=== PATIENT | female | born 1935 | race Caucasian/White ===

== ENCOUNTER 2021-08-07 11:15 | Outpatient (RCR) | payer OTHER, SELFPAY ==
--- NOTE | 2021-05-02 11:49 | PT.OIE ---
Current Diagnoses Unspecified abnormalities of gait and mobility (05/02/21) History of falling (05/02/21) Visit Care Team Role Provider Type Tamia Vázquez MD Attending Provider Non-Staff Family Provider Primary Care Provider Referring Provider Specialty: Internal Medicine Address: [place], [address] Fax: Email: Physical Therapy Initial Evaluation PT-OP-A Visit Information Start: 05/02/21 11:17 Freq: Status: Active Protocol: Document 05/02/21 09:45 DCW (Rec: 05/02/21 11:34 DCW [id number]) Out-Patient Physical Therapy Visit Information Visit Information Visit Type Initial Evaluation Visit Start Time 09:45 Visit Stop Time 10:30 Total Visit Minutes 45 Visit Number 1 Number of LOCKSTITCH SHOULDER JOINER Visits 0 Evaluation Information Evaluation Date 05/02/21 PT-OP-B Current Condition Start: 05/02/21 11:17 Freq: Status: Active Protocol: Document 05/02/21 09:45 DCW (Rec: 05/02/21 11:34 DCW [id number]) Current Condition History of Current Condition Onset Date ~One year Current Complaints Worsening balance/stability History of Current Condition Pt is an 85 year old female presenting to skilled therapy with complaint of worsening balance and stability. Pt reports a fall 2-3 weeks ago where she was in her bedroom, turned quickly, lost her balance, lunged for the bed, missed, and ended up on the floor. Pt reports her left leg was quite bruised. Pt was also shocked that she was unable to get herself up, and needed her daughter to bring over a hard dining room chair for support. Pt reports she usually lives in an independent halfway community in [place], and does a lot of walking around the very large building, up to two miles a day. Unfortunately, for the last 16 months, she has been living here in [place] with her daughter, who was diagnosed with cancer and has been undergoing intensive chemo. Because of this, pt has been much less active than usual. Notes she uses a 4WW when out in the community, but just uses a wayne when at home. Pt does note that she has had spinal problems all her life, starting when she was about 32 . Has a history of 2 compression fractures, treated with vertoplasty, which are now 100% better. Notes she also has a history on Meniere' s disease, however has not had an episode in 20+ years. Treatment Goals Patient/Caregiver Goals Improve balance, decrease fear of falling PT-OP-C Subjective Start: 05/02/21 11:17 Freq: Status: Active Protocol: Document 05/02/21 09:45 DCW (Rec: 05/02/21 11:34 DCW [id number]) OP-PT Subjective Patient Comments Patient Comments What's happening, really, is that I'm 85 now. And there's just a lot that comes with that. Patient Reported Progress Worse Patient Questionnaires ABC- Activity Specific Balance Confidence Scale ABC Score 54.69% ABC Functional Impairment 40 to <60% Impaired (Score 41- 60) OP-PT Pain Assessment Pain Assessment Grid Paper Pain Assessment Grid Completed Yes: See chart PT-OP-D Balance Start: 05/02/21 11:17 Freq: Status: Active Protocol: Document 05/02/21 09:45 DCW (Rec: 05/02/21 11:34 DCW [id number]) OP-PT Balance Assessment Sitting Balance Static Sitting Balance Ability Normal Standing Balance Static Standing Balance Ability Good Dynamic Standing Balance Ability Fair Device Used None Balance Tests De La Fuente Balance Test De La Fuente Balance Test Score 47/56 De La Fuente Impairment Rating 1 to 19% Impaired (Score 45-55 ) De La Fuente Balance Assessment Evaluation Sitting to Standing Ability Independent w/out Hands Unsupported Stance Safely- 2 minutes Sitting Unsupported, Feet on Floor Safely- 2 minutes Standing to Sitting Ability Safely, Minimal Hand Use Transfer Ability Safely, Minimal Hand Use Unsupported Stance- Eyes Closed Supervision, 10 seconds Unsupported Stance- Eyes Open Independent, 1 minute Reaching Forward Standing Safely, 5 inches Pick- Up Object From Floor Supervision Look Behind Shoulder - Standing Shifts Weight Well Turning 360 Degrees Turns slowly, but safely Unsupported Stance, Alternating Feet on (I)- 8 Steps in > 20 secs Stair Unsupported Tandem Stance Holds Tandem- 30 seconds Unilateral Leg Stance Lifts Leg/Holds > 3 secs Total Score De La Fuente Total Score (out of 56 points) 47 De La Fuente Impairment Rating 1 to 19% Impaired (Score 45-55 ) Vazquez Fall Scale Copyright Permission PT-OP-E Functional Tests Start: 05/02/21 11:17 Freq: Status: Active Protocol: Document 05/02/21 09:45 DCW (Rec: 05/02/21 11:34 DCW [id number]) Functional Tests Dynamic Gait Index (DGI) Score 15/24 DGI Impairment Rating 20 to <40% Impaired (Score 15- 19) PT-OP-M Strength Start: 05/02/21 11:34 Freq: Status: Active Protocol: Document 05/02/21 09:45 DCW (Rec: 05/02/21 11:49 DCW [id number]) Hip Strength Hip Manual Muscle Testing Right Flexion (L2) 4- Good- Extension (S1) 4 Good Abduction 3 Fair Adduction 3 Fair Left Flexion (L2) 4- Good- Extension (S1) 4 Good Abduction 3 Fair Adduction 3 Fair Knee Strength Knee Manual Muscle Testing Right Flexion (S2) 4- Good- Extension (L3) 4 Good Left Flexion (S2) 4- Good- Extension (L3) 4 Good Ankle/Foot Strength Ankle and Foot Manual Muscle Testing Right Dorsiflexion (L4) 4 Good Plantarflexion (S1) 4- Good- Left Dorsiflexion (L4) 4 Good Plantarflexion (S1) 4- Good- PT-OP-T Assessment and Plan Start: 05/02/21 11:17 Freq: Status: Active Protocol: Document 05/02/21 09:45 DCW (Rec: 05/02/21 11:49 [facility] [id number]) Physical Therapy Assessment Rehab Potential Rehabilitation Potential Good Evaluation Complexity Number of Personal Factors/Comorbidities 1-2 Number of Body Systems Impaired 3 Clinical Presentation at Evaluation Stable Impairments Impairments Balance,Functional Activities, Functional Mobility,Gait, Strength Other Concerns Fall Risk Yes, per DGI (1524) and falls history Goals Three Impairment Pt presents as a falls risk, per DGI score of 15/24 Half-Way Goal (LTG) Pt to increase DGI score at least 5 points to 20/24 to demonstrate decreased falls risk. LTG Duration 07/02/21 Two Impairment Pt displays decreased LE weakness bilaterally Regulatory Affairs Consultant Goal (LTG) Pt to increase bilateral hip abduction/adduction to at least 4-/5 to improve stability of pelvis during gait LTG Duration 07/02/21 One Impairment Pt does not have an appropriate home exercise program Short Term Goal (STG) Pt to be independent and compliant with an appropriate HEP STG Duration 06/01/21 Assessment Summary Assessment Pt presents with decreased balance and stability. Static balance is fairly good, pt scores a 47/56 on her De La Fuente, which is above the cutoff for increased falls risk, however struggled more with dynamic balance, scoring a 15/24 on the DGI. Pt also demonstrates decreased LE strength, particularly hip abd/adduction , resulting in decreased pelvic and spinal stability. Pt really just presenting with general deconditioning after being much less active than usual over the past 12-16 months while living with her daughter. Pt should benefit from skilled therapy focusing on balance training, LE strengthening, and gait training. Would like to performed some additional testing next visit, most notably a TUG. Physical Therapy Plan Frequency and Duration Frequency of Treatment 2x/Week Duration of Treatment Two months Plan of Care Start Date 05/02/21 Plan of Care End Date 07/02/21 Therapeutic Interventions Therapeutic Interventions Balance Training,Coordination Training,Home Exercise Program ,Neuromuscular Re-education, Patient/Caregiver Education, Self-Care/Home Management,Soft Tissue Mobilization, Therapeutic Activities, Therapeutic Exercises Next Visit Focus/Plan Next Note Type Treatment Note Next Visit Plan Balance training, TUG, LE strengthening
--- NOTE | 2021-05-02 11:50 | PT.OPPOC ---
Physical, Occupational & Speech Therapy At [facility] Current Diagnoses Unspecified abnormalities of gait and mobility (05/02/21) History of falling (05/02/21) Visit Care Team Role Provider Type Tamia Vázquez MD Attending Provider Non-Staff Family Provider Primary Care Provider Referring Provider Specialty: Internal Medicine Address: [address] [place] [address], [facility] Fax: Email: Plan Of Care PT-OP-T Assessment and Plan Start: 05/02/21 11:17 Freq: Status: Active Protocol: Document 05/02/21 09:45 DCW (Rec: 05/02/21 11:49 DCW [id number]) Physical Therapy Assessment Rehab Potential Rehabilitation Potential Good Evaluation Complexity Number of Personal Factors/Comorbidities 1-2 Number of Body Systems Impaired 3 Clinical Presentation at Evaluation Stable Impairments Impairments Balance,Functional Activities, Functional Mobility,Gait, Strength Other Concerns Fall Risk Yes, per DGI (15) and falls history Goals Three Impairment Pt presents as a falls risk, per DGI score of 15/24 Poolroom Table Attendant Goal (LTG) Pt to increase DGI score at least 5 points to 20/24 to demonstrate decreased falls risk. LTG Duration 07/02/21 Two Impairment Pt displays decreased LE weakness bilaterally Poolroom Table Attendant Goal (LTG) Pt to increase bilateral hip abduction/adduction to at least 4-/5 to improve stability of pelvis during gait LTG Duration 07/02/21 One Impairment Pt does not have an appropriate home exercise program Short Term Goal (STG) Pt to be independent and compliant with an appropriate HEP STG Duration 06/01/21 Assessment Summary Assessment Pt presents with decreased balance and stability. Static balance is fairly good, pt scores a 47/56 on her De La Fuente, which is above the cutoff for increased falls risk, however struggled more with dynamic balance, scoring a 15/24 on the DGI. Pt also demonstrates decreased LE strength, particularly hip abd/adduction , resulting in decreased pelvic and spinal stability. Pt really just presenting with general deconditioning after being much less active than usual over the past 12-16 months while living with her daughter. Pt should benefit from skilled therapy focusing on balance training, LE strengthening, and gait training. Would like to performed some additional testing next visit, most notably a TUG. Physical Therapy Plan Frequency and Duration Frequency of Treatment 2x/Week Duration of Treatment Two months Plan of Care Start Date 05/02/21 Plan of Care End Date 07/02/21 Therapeutic Interventions Therapeutic Interventions Balance Training,Coordination Training,Home Exercise Program ,Neuromuscular Re-education, Patient/Caregiver Education, Self-Care/Home Management,Soft Tissue Mobilization, Therapeutic Activities, Therapeutic Exercises Next Visit Focus/Plan Next Note Type Treatment Note Next Visit Plan Balance training, TUG, LE strengthening Plan of Care Dates Plan of Care Start Date 05/02/21 Plan of Care End Date 07/02/21 Electronically Signed by: Roger Marcelino, PT 05/02/21 8812 Please Sign and Return: I have reviewed this Plan of Care and certify that the skilled therapy services above are required to meet the patient?s needs. Physician Signature Date Printed Name and Credentials Clinical Instructor Signature Printed Name and Credentials
--- NOTE | 2021-05-04 09:47 | PT.OTN ---
Current Diagnoses Unspecified abnormalities of gait and mobility (05/04/21) History of falling (05/04/21) Physical Therapy Treatment Note PT-OP-A Visit Information Start: 05/02/21 11:17 Freq: Status: Active Protocol: Document 05/04/21 09:02 DCW (Rec: 05/04/21 09:47 DCW [id number]) Out-Patient Physical Therapy Visit Information Visit Information Visit Type Treatment Note Visit Start Time 09:02 Visit Stop Time 09:45 Total Visit Minutes 43 Visit Number 2 Number of INDUSTRIAL FURNACE FABRICATOR Visits 0 Evaluation Information Evaluation Date 05/02/21 PT-OP-B Current Condition Start: 05/02/21 11:17 Freq: Status: Active Protocol: Document 05/02/21 09:45 DCW (Rec: 05/02/21 11:34 DCW [id number]) Current Condition History of Current Condition Onset Date ~One year Current Complaints Worsening balance/stability History of Current Condition Pt is an 85 year old female presenting to skilled therapy with complaint of worsening balance and stabililty. Pt reports a fall 2-3 weeks ago where she was in her bedroom, turned quickly, lost her balance, lunged for the bed, missed, and ended up on the floor. Pt reports her left leg was quite bruised. Pt was also shocked that she was unable to get herself up, and needed her daughter to bring over a hard dining room chair for support. Pt reports she usually lives in an [place] community in [place], and does a lot of walking around the very large building, up to two miles a day. Unfortunately, for the last 16 months, she has been living here in [place] with her daughter, who was diagnosed with cancer and has been undergoing intensive chemo. Because of this, pt has been much less active than usual. Notes she uses a 4WW when out in the community, but just uses a wayne when at home. Pt does note that she has had spinal problems all her life, starting when she was about 32 . Has a history of 2 compression fractures, treated with vertoplasty, which are now 100% better. Notes she also has a history on Meniere' s disease, however has not had an episode in 20+ years. Treatment Goals Patient/Caregiver Goals Improve balance, decrease fear of falling PT-OP-C Subjective Start: 05/02/21 11:17 Freq: Status: Active Protocol: Document 05/04/21 09:02 DCW (Rec: 05/04/21 09:47 DCW [id number]) OP-PT Subjective Patient Comments Patient Comments I was worried I was going to be late, I had to drop my granddaughter off at school this morning. PT-OP-D Balance Start: 05/02/21 11:17 Freq: Status: Active Protocol: Document 05/02/21 09:45 DCW (Rec: 05/02/21 11:34 DCW [id number]) OP-PT Balance Assessment Sitting Balance Static Sitting Balance Ability Normal Standing Balance Static Standing Balance Ability Good Dynamic Standing Balance Ability Fair Device Used None Balance Tests De La Fuente Balance Test De La Fuente Balance Test Score 47/56 De La Fuente Impairment Rating 1 to 19% Impaired (Score 45-55 ) De La Fuente Balance Assessment Evaluation Sitting to Standing Ability Independent w/out Hands Unsupported Stance Safely- 2 minutes Sitting Unsupported, Feet on Floor Safely- 2 minutes Standing to Sitting Ability Safely, Minimal Hand Use Transfer Ability Safely, Minimal Hand Use Unsupported Stance- Eyes Closed Supervision, 10 seconds Unsupported Stance- Eyes Open Independent, 1 minute Reaching Forward Standing Safely, 5 inches Pick- Up Object From Floor Supervision Look Behind Shoulder - Standing Shifts Weight Well Turning 360 Degrees Turns slowly, but safely Unsupported Stance, Alternating Feet on (I)- 8 Steps in > 20 secs Stair Unsupported Tandem Stance Holds Tandem- 30 seconds Unilateral Leg Stance Lifts Leg/Holds > 3 secs Total Score De La Fuente Total Score (out of 56 points) 47 De La Fuente Impairment Rating 1 to 19% Impaired (Score 45-55 ) Vazquez Fall Scale Copyright Permission PT-OP-E Functional Tests Start: 05/02/21 11:17 Freq: Status: Active Protocol: Document 05/02/21 09:45 DCW (Rec: 05/02/21 11:34 DCW [id number]) Functional Tests Dynamic Gait Index (DGI) Score 15/24 DGI Impairment Rating 20 to <40% Impaired (Score 15- 19) PT-OP-M Strength Start: 05/02/21 11:34 Freq: Status: Active Protocol: Document 05/02/21 09:45 DCW (Rec: 05/02/21 11:49 DCW [id number]) Hip Strength Hip Manual Muscle Testing Right Flexion (L2) 4- Good- Extension (S1) 4 Good Abduction 3 Fair Adduction 3 Fair Left Flexion (L2) 4- Good- Extension (S1) 4 Good Abduction 3 Fair Adduction 3 Fair Knee Strength Knee Manual Muscle Testing Right Flexion (S2) 4- Good- Extension (L3) 4 Good Left Flexion (S2) 4- Good- Extension (L3) 4 Good Ankle/Foot Strength Ankle and Foot Manual Muscle Testing Right Dorsiflexion (L4) 4 Good Plantarflexion (S1) 4- Good- Left Dorsiflexion (L4) 4 Good Plantarflexion (S1) 4- Good- PT-OP-Q Treatments Start: 05/02/21 11:17 Freq: Status: Active Protocol: Document 05/04/21 09:02 DCW (Rec: 05/04/21 09:47 DCW [id number]) Cardio Equipment Recumbent Stepper (Sci-Fit) Duration (Minutes) 5 Resistance 2 Seat Position 8 Gym Equipment Shuttle Recovery Unilateral Squats Resistance 37# Shuttle Recovery Platform Stable Bilateral Squats Resistance 50# Shuttle Recovery Platform Stable Neuro Re-Education Treatment Balance Activities 4 Details Tilt board Comments DF/PF, Lateral 3 Details SLS Equipment // Bars 2 Details Tandem Stance Equipment // bars 1 Details Foam stance Surface Kurtz foam Comments EO/EC, X1 PT-OP-T Assessment and Plan Start: 05/02/21 11:17 Freq: Status: Active Protocol: Document 05/04/21 09:02 DCW (Rec: 05/04/21 09:47 DCW [id number]) Physical Therapy Assessment Impairments Impairments Balance,Functional Activities, Functional Mobility,Gait, Strength Goals Three Impairment Pt presents as a falls risk, per DGI score of 15/24 Personal Banking Advisor Goal (LTG) Pt to increase DGI score at least 5 points to 20/24 to demonstrate decreased falls risk. LTG Duration 07/02/21 Two Impairment Pt displays decreased LE weakness bilaterally Personal Banking Advisor Goal (LTG) Pt to increase bilateral hip abduction/adduction to at least 4-/5 to improve stability of pelvis during gait LTG Duration 07/02/21 One Impairment Pt does not have an appropriate home exercise program Short Term Goal (STG) Pt to be independent and compliant with an appropriate HEP STG Duration 06/01/21 Assessment Summary Assessment Pt tolerated treatment well today, showing good righting reactions during static balance, increase difficulty and perform more dynamic exercises next visit. Physical Therapy Plan Frequency and Duration Frequency of Treatment 2x/Week Duration of Treatment Two months Plan of Care Start Date 05/02/21 Plan of Care End Date 07/02/21 Therapeutic Interventions Therapeutic Interventions Balance Training,Coordination Training,Home Exercise Program ,Neuromuscular Re-education, Patient/Caregiver Education, Self-Care/Home Management,Soft Tissue Mobilization, Therapeutic Activities, Therapeutic Exercises Next Visit Focus/Plan Next Note Type Treatment Note Next Visit Plan Balance training, TUG, LE strengthening
--- NOTE | 2021-05-08 12:08 | PT.OTN ---
Current Diagnoses Unspecified abnormalities of gait and mobility (05/08/21) History of falling (05/08/21) Physical Therapy Treatment Note PT-OP-A Visit Information Start: 05/02/21 11:17 Freq: Status: Active Protocol: Document 05/08/21 11:14 DCW (Rec: 05/08/21 12:08 DCW [id number]) Out-Patient Physical Therapy Visit Information Visit Information Visit Type Treatment Note Visit Start Time 11:15 Visit Stop Time 12:00 Total Visit Minutes 45 Visit Number 3 Number of COMPUTER NETWORKING INSTRUCTOR ADJUNCT Visits 0 Evaluation Information Evaluation Date 05/02/21 PT-OP-B Current Condition Start: 05/02/21 11:17 Freq: Status: Active Protocol: Document 05/02/21 09:45 DCW (Rec: 05/02/21 11:34 DCW [id number]) Current Condition History of Current Condition Onset Date ~One year Current Complaints Worsening balance/stability History of Current Condition Pt is an 85 year old female presenting to skilled therapy with complaint of worsening balance and stabililty. Pt reports a fall 2-3 weeks ago where she was in her bedroom, turned quickly, lost her balance, lunged for the bed, missed, and ended up on the floor. Pt reports her left leg was quite bruised. Pt was also shocked that she was unable to get herself up, and needed her daughter to bring over a hard dining room chair for support. Pt reports she usually lives in an independent care home community in [place], and does a lot of walking around the very large building, up to two miles a day. Unfortunately, for the last 16 months, she has been living here in [place] with her daughter, who was diagnosed with cancer and has been undergoing intensive chemo. Because of this, pt has been much less active than usual. Notes she uses a 4WW when out in the community, but just uses a wayne when at home. Pt does note that she has had spinal problems all her life, starting when she was about 32 . Has a history of 2 compression fractures, treated with vertoplasty, which are now 100% better. Notes she also has a history on Meniere' s disease, however has not had an episode in 20+ years. Treatment Goals Patient/Caregiver Goals Improve balance, decrease fear of falling PT-OP-C Subjective Start: 05/02/21 11:17 Freq: Status: Active Protocol: Document 05/08/21 11:14 DCW (Rec: 05/08/21 12:08 DCW [id number]) OP-PT Subjective Patient Comments Patient Comments My daughter wanted me to tell you that I'm unstable when I walk. Pt also notes her back has been pretty sore this morning with the change in weather. PT-OP-D Balance Start: 05/02/21 11:17 Freq: Status: Active Protocol: Document 05/02/21 09:45 DCW (Rec: 05/02/21 11:34 DCW [id number]) OP-PT Balance Assessment Sitting Balance Static Sitting Balance Ability Normal Standing Balance Static Standing Balance Ability Good Dynamic Standing Balance Ability Fair Device Used None Balance Tests De La Fuente Balance Test De La Fuente Balance Test Score 47/56 De La Fuente Impairment Rating 1 to 19% Impaired (Score 45-55 ) De La Fuente Balance Assessment Evaluation Sitting to Standing Ability Independent w/out Hands Unsupported Stance Safely- 2 minutes Sitting Unsupported, Feet on Floor Safely- 2 minutes Standing to Sitting Ability Safely, Minimal Hand Use Transfer Ability Safely, Minimal Hand Use Unsupported Stance- Eyes Closed Supervision, 10 seconds Unsupported Stance- Eyes Open Independent, 1 minute Reaching Forward Standing Safely, 5 inches Pick- Up Object From Floor Supervision Look Behind Shoulder - Standing Shifts Weight Well Turning 360 Degrees Turns slowly, but safely Unsupported Stance, Alternating Feet on (I)- 8 Steps in > 20 secs Stair Unsupported Tandem Stance Holds Tandem- 30 seconds Unilateral Leg Stance Lifts Leg/Holds > 3 secs Total Score De La Fuente Total Score (out of 56 points) 47 De La Fuente Impairment Rating 1 to 19% Impaired (Score 45-55 ) Vazquez Fall Scale Copyright Permission PT-OP-E Functional Tests Start: 05/02/21 11:17 Freq: Status: Active Protocol: Document 05/04/21 09:02 DCW (Rec: 05/04/21 10:33 DCW [id number]) Functional Tests Timed Up and Go (TUG) Score 14.68 Comments 3-trial average (15.24, 14.57, 14.23) TUG Impairment Rating 40 to <60% Impaired (Score 14- 15) PT-OP-M Strength Start: 05/02/21 11:34 Freq: Status: Active Protocol: Document 05/02/21 09:45 DCW (Rec: 05/02/21 11:49 DCW [id number]) Hip Strength Hip Manual Muscle Testing Right Flexion (L2) 4- Good- Extension (S1) 4 Good Abduction 3 Fair Adduction 3 Fair Left Flexion (L2) 4- Good- Extension (S1) 4 Good Abduction 3 Fair Adduction 3 Fair Knee Strength Knee Manual Muscle Testing Right Flexion (S2) 4- Good- Extension (L3) 4 Good Left Flexion (S2) 4- Good- Extension (L3) 4 Good Ankle/Foot Strength Ankle and Foot Manual Muscle Testing Right Dorsiflexion (L4) 4 Good Plantarflexion (S1) 4- Good- Left Dorsiflexion (L4) 4 Good Plantarflexion (S1) 4- Good- PT-OP-Q Treatments Start: 05/02/21 11:17 Freq: Status: Active Protocol: Document 05/08/21 11:14 DCW (Rec: 05/08/21 12:08 DCW [id number]) Cardio Equipment Recumbent Elliptical ([employer]) Duration (Minutes) 5 Resistance 7->6 Seat Position 6 Gym Equipment Shuttle Balance Red Details WBOS (EO/EC), Staggered, Lat weight shift Neuro Re-Education Treatment Balance Activities 8 Details Semi-tandem Surface Green/Blue foam 7 Details Hurdles /c foam 6 Details Amb /c head turns Comments Horizontal/Vertical 5 Details Tandem ambulation Equipment @ rail PT-OP-T Assessment and Plan Start: 05/02/21 11:17 Freq: Status: Active Protocol: Document 05/08/21 11:14 DCW (Rec: 05/08/21 12:08 DCW [id number]) Physical Therapy Assessment Impairments Impairments Balance,Functional Activities, Functional Mobility,Gait, Strength Goals Three Impairment Pt presents as a falls risk, per DGI score of 15/24 Alf Goal (LTG) Pt to increase DGI score at least 5 points to 20/24 to demonstrate decreased falls risk. LTG Duration 07/02/21 Two Impairment Pt displays decreased LE weakness bilaterally Inside Sales Coordinator Goal (LTG) Pt to increase bilateral hip abduction/adduction to at least 4-/5 to improve stability of pelvis during gait LTG Duration 07/02/21 One Impairment Pt does not have an appropriate home exercise program Short Term Goal (STG) Pt to be independent and compliant with an appropriate HEP STG Duration 06/01/21 Assessment Summary Assessment Pt had more difficulty today with more dynamic challenges. Physical Therapy Plan Frequency and Duration Frequency of Treatment 2x/Week Duration of Treatment Two months Plan of Care Start Date 05/02/21 Plan of Care End Date 07/02/21 Therapeutic Interventions Therapeutic Interventions Balance Training,Coordination Training,Home Exercise Program ,Neuromuscular Re-education, Patient/Caregiver Education, Self-Care/Home Management,Soft Tissue Mobilization, Therapeutic Activities, Therapeutic Exercises Next Visit Focus/Plan Next Note Type Treatment Note Next Visit Plan Balance training, TUG, LE strengthening
--- NOTE | 2021-05-11 12:03 | PT.OTN ---
Current Diagnoses Unspecified abnormalities of gait and mobility (05/11/21) History of falling (05/11/21) Physical Therapy Treatment Note PT-OP-A Visit Information Start: 05/02/21 11:17 Freq: Status: Active Protocol: Document 05/11/21 11:15 DCW (Rec: 05/11/21 12:03 DCW [id number]) Out-Patient Physical Therapy Visit Information Visit Information Visit Type Treatment Note Visit Start Time 11:15 Visit Stop Time 12:00 Total Visit Minutes 45 Visit Number 4 Number of EPIC APPLICATION COORDINATOR Visits 0 Evaluation Information Evaluation Date 05/02/21 PT-OP-B Current Condition Start: 05/02/21 11:17 Freq: Status: Active Protocol: Document 05/02/21 09:45 DCW (Rec: 05/02/21 11:34 DCW [id number]) Current Condition History of Current Condition Onset Date ~One year Current Complaints Worsening balance/stability History of Current Condition Pt is an 85 year old female presenting to skilled therapy with complaint of worsening balance and stabililty. Pt reports a fall 2-3 weeks ago where she was in her bedroom, turned quickly, lost her balance, lunged for the bed, missed, and ended up on the floor. Pt reports her left leg was quite bruised. Pt was also shocked that she was unable to get herself up, and needed her daughter to bring over a hard dining room chair for support. Pt reports she usually lives in an independent longterm community in [place], and does a lot of walking around the very large building, up to two miles a day. Unfortunately, for the last 16 months, she has been living here in [place] with her daughter, who was diagnosed with cancer and has been undergoing intensive chemo. Because of this, pt has been much less active than usual. Notes she uses a 4WW when out in the community, but just uses a wayne when at home. Pt does note that she has had spinal problems all her life, starting when she was about 32 . Has a history of 2 compression fractures, treated with vertoplasty, which are now 100% better. Notes she also has a history on Meniere' s disease, however has not had an episode in 20+ years. Treatment Goals Patient/Caregiver Goals Improve balance, decrease fear of falling PT-OP-C Subjective Start: 05/02/21 11:17 Freq: Status: Active Protocol: Document 05/11/21 11:15 DCW (Rec: 05/11/21 12:03 DCW [id number]) OP-PT Subjective Patient Comments Patient Comments I'm feeling fine. An achy back, but it's feeling good right now. PT-OP-D Balance Start: 05/02/21 11:17 Freq: Status: Active Protocol: Document 05/02/21 09:45 DCW (Rec: 05/02/21 11:34 DCW [id number]) OP-PT Balance Assessment Sitting Balance Static Sitting Balance Ability Normal Standing Balance Static Standing Balance Ability Good Dynamic Standing Balance Ability Fair Device Used None Balance Tests De La Fuente Balance Test De La Fuente Balance Test Score 47/56 De La Fuente Impairment Rating 1 to 19% Impaired (Score 45-55 ) De La Fuente Balance Assessment Evaluation Sitting to Standing Ability Independent w/out Hands Unsupported Stance Safely- 2 minutes Sitting Unsupported, Feet on Floor Safely- 2 minutes Standing to Sitting Ability Safely, Minimal Hand Use Transfer Ability Safely, Minimal Hand Use Unsupported Stance- Eyes Closed Supervision, 10 seconds Unsupported Stance- Eyes Open Independent, 1 minute Reaching Forward Standing Safely, 5 inches Pick- Up Object From Floor Supervision Look Behind Shoulder - Standing Shifts Weight Well Turning 360 Degrees Turns slowly, but safely Unsupported Stance, Alternating Feet on (I)- 8 Steps in > 20 secs Stair Unsupported Tandem Stance Holds Tandem- 30 seconds Unilateral Leg Stance Lifts Leg/Holds > 3 secs Total Score De La Fuente Total Score (out of 56 points) 47 De La Fuente Impairment Rating 1 to 19% Impaired (Score 45-55 ) Vazquez Fall Scale Copyright Permission PT-OP-E Functional Tests Start: 05/02/21 11:17 Freq: Status: Active Protocol: Document 05/04/21 09:02 DCW (Rec: 05/04/21 10:33 DCW [id number]) Functional Tests Timed Up and Go (TUG) Score 14.68 Comments 3-trial average (15.24, 14.57, 14.23) TUG Impairment Rating 40 to <60% Impaired (Score 14- 15) PT-OP-M Strength Start: 05/02/21 11:34 Freq: Status: Active Protocol: Document 05/02/21 09:45 DCW (Rec: 05/02/21 11:49 DCW [id number]) Hip Strength Hip Manual Muscle Testing Right Flexion (L2) 4- Good- Extension (S1) 4 Good Abduction 3 Fair Adduction 3 Fair Left Flexion (L2) 4- Good- Extension (S1) 4 Good Abduction 3 Fair Adduction 3 Fair Knee Strength Knee Manual Muscle Testing Right Flexion (S2) 4- Good- Extension (L3) 4 Good Left Flexion (S2) 4- Good- Extension (L3) 4 Good Ankle/Foot Strength Ankle and Foot Manual Muscle Testing Right Dorsiflexion (L4) 4 Good Plantarflexion (S1) 4- Good- Left Dorsiflexion (L4) 4 Good Plantarflexion (S1) 4- Good- PT-OP-Q Treatments Start: 05/02/21 11:17 Freq: Status: Active Protocol: Document 05/11/21 11:15 DCW (Rec: 05/11/21 12:03 DCW [id number]) Cardio Equipment Recumbent Elliptical ([employer] 911) Duration (Minutes) 5 Resistance 6 Seat Position 6 Gym Equipment Shuttle Recovery Unilateral Squats Resistance 37# Shuttle Recovery Platform Stable Bilateral Squats Resistance 62# Shuttle Recovery Platform Stable Shuttle Balance Red Details WBOS (EO/EC), Staggered, Lat weight shift Therapeutic Exercises Standing Exercises 1 Standing Exercise Name Hip ext Side bilateral Resistance Lv 3 Equipment Used T-band Other Exercises 1 Other Exercise Name Resisted Abduction Resistance Green Equipment Used T-band Comments Side-stepping PT-OP-T Assessment and Plan Start: 05/02/21 11:17 Freq: Status: Active Protocol: Document 05/11/21 11:15 DCW (Rec: 05/11/21 12:03 DCW [id number]) Physical Therapy Assessment Impairments Impairments Balance,Functional Activities, Functional Mobility,Gait, Strength Goals Three Impairment Pt presents as a falls risk, per DGI score of 15/24 Long-Term Goal (LTG) Pt to increase DGI score at least 5 points to 20/24 to demonstrate decreased falls risk. LTG Duration 07/02/21 Two Impairment Pt displays decreased LE weakness bilaterally Machine Printer Hose Goal (LTG) Pt to increase bilateral hip abduction/adduction to at least 4-/5 to improve stability of pelvis during gait LTG Duration 07/02/21 One Impairment Pt does not have an appropriate home exercise program Short Term Goal (STG) Pt to be independent and compliant with an appropriate HEP STG Duration 06/01/21 Assessment Summary Assessment Pt working hard with HEP, feeling more stable. Physical Therapy Plan Frequency and Duration Frequency of Treatment 2x/Week Duration of Treatment Two months Plan of Care Start Date 05/02/21 Plan of Care End Date 07/02/21 Therapeutic Interventions Therapeutic Interventions Balance Training,Coordination Training,Home Exercise Program ,Neuromuscular Re-education, Patient/Caregiver Education, Self-Care/Home Management,Soft Tissue Mobilization, Therapeutic Activities, Therapeutic Exercises Next Visit Focus/Plan Next Note Type Treatment Note Next Visit Plan Balance training, TUG, LE strengthening
--- NOTE | 2021-05-14 11:59 | PT.OTN ---
Current Diagnoses Unspecified abnormalities of gait and mobility (05/14/21) History of falling (05/14/21) Physical Therapy Treatment Note PT-OP-A Visit Information Start: 05/02/21 11:17 Freq: Status: Active Protocol: Document 05/14/21 11:15 DCW (Rec: 05/14/21 11:58 DCW [id number]) Out-Patient Physical Therapy Visit Information Visit Information Visit Type Treatment Note Visit Start Time 11:15 Visit Stop Time 12:00 Total Visit Minutes 45 Visit Number 5 Number of ELECTRICAL TRYOUT PERSON Visits 0 Evaluation Information Evaluation Date 05/02/21 PT-OP-B Current Condition Start: 05/02/21 11:17 Freq: Status: Active Protocol: Document 05/02/21 09:45 DCW (Rec: 05/02/21 11:34 DCW [id number]) Current Condition History of Current Condition Onset Date ~One year Current Complaints Worsening balance/stability History of Current Condition Pt is an 85 year old female presenting to skilled therapy with complaint of worsening balance and stabililty. Pt reports a fall 2-3 weeks ago where she was in her bedroom, turned quickly, lost her balance, lunged for the bed, missed, and ended up on the floor. Pt reports her left leg was quite bruised. Pt was also shocked that she was unable to get herself up, and needed her daughter to bring over a hard dining room chair for support. Pt reports she usually lives in an independent halfway community in [place], and does a lot of walking around the very large building, up to two miles a day. Unfortunately, for the last 16 months, she has been living here in [place] with her daughter, who was diagnosed with cancer and has been undergoing intensive chemo. Because of this, pt has been much less active than usual. Notes she uses a 4WW when out in the community, but just uses a wayne when at home. Pt does note that she has had spinal problems all her life, starting when she was about 32 . Has a history of 2 compression fractures, treated with vertoplasty, which are now 100% better. Notes she also has a history on Meniere' s disease, however has not had an episode in 20+ years. Treatment Goals Patient/Caregiver Goals Improve balance, decrease fear of falling PT-OP-C Subjective Start: 05/02/21 11:17 Freq: Status: Active Protocol: Document 05/14/21 11:15 DCW (Rec: 05/14/21 11:58 DCW [id number]) OP-PT Subjective Patient Comments Patient Comments Pt notes that her HEP is actually a good workout, it's kind of pitiful. I have a long way to go. PT-OP-D Balance Start: 05/02/21 11:17 Freq: Status: Active Protocol: Document 05/02/21 09:45 DCW (Rec: 05/02/21 11:34 DCW [id number]) OP-PT Balance Assessment Sitting Balance Static Sitting Balance Ability Normal Standing Balance Static Standing Balance Ability Good Dynamic Standing Balance Ability Fair Device Used None Balance Tests De La Fuente Balance Test De La Fuente Balance Test Score 47/56 De La Fuente Impairment Rating 1 to 19% Impaired (Score 45-55 ) De La Fuente Balance Assessment Evaluation Sitting to Standing Ability Independent w/out Hands Unsupported Stance Safely- 2 minutes Sitting Unsupported, Feet on Floor Safely- 2 minutes Standing to Sitting Ability Safely, Minimal Hand Use Transfer Ability Safely, Minimal Hand Use Unsupported Stance- Eyes Closed Supervision, 10 seconds Unsupported Stance- Eyes Open Independent, 1 minute Reaching Forward Standing Safely, 5 inches Pick- Up Object From Floor Supervision Look Behind Shoulder - Standing Shifts Weight Well Turning 360 Degrees Turns slowly, but safely Unsupported Stance, Alternating Feet on (I)- 8 Steps in > 20 secs Stair Unsupported Tandem Stance Holds Tandem- 30 seconds Unilateral Leg Stance Lifts Leg/Holds > 3 secs Total Score De La Fuente Total Score (out of 56 points) 47 De La Fuente Impairment Rating 1 to 19% Impaired (Score 45-55 ) Vazquez Fall Scale Copyright Permission PT-OP-E Functional Tests Start: 05/02/21 11:17 Freq: Status: Active Protocol: Document 05/04/21 09:02 DCW (Rec: 05/04/21 10:33 DCW [id number]) Functional Tests Timed Up and Go (TUG) Score 14.68 Comments 3-trial average (15.24, 14.57, 14.23) TUG Impairment Rating 40 to <60% Impaired (Score 14- 15) PT-OP-M Strength Start: 05/02/21 11:34 Freq: Status: Active Protocol: Document 05/02/21 09:45 DCW (Rec: 05/02/21 11:49 DCW [id number]) Hip Strength Hip Manual Muscle Testing Right Flexion (L2) 4- Good- Extension (S1) 4 Good Abduction 3 Fair Adduction 3 Fair Left Flexion (L2) 4- Good- Extension (S1) 4 Good Abduction 3 Fair Adduction 3 Fair Knee Strength Knee Manual Muscle Testing Right Flexion (S2) 4- Good- Extension (L3) 4 Good Left Flexion (S2) 4- Good- Extension (L3) 4 Good Ankle/Foot Strength Ankle and Foot Manual Muscle Testing Right Dorsiflexion (L4) 4 Good Plantarflexion (S1) 4- Good- Left Dorsiflexion (L4) 4 Good Plantarflexion (S1) 4- Good- PT-OP-Q Treatments Start: 05/02/21 11:17 Freq: Status: Active Protocol: Document 05/14/21 11:15 DCW (Rec: 05/14/21 11:58 DCW [id number]) Cardio Equipment Recumbent Elliptical ([employer]) Duration (Minutes) 5 Resistance 7->6 Seat Position 6 Gym Equipment Shuttle Recovery Unilateral Squats Resistance 37# Shuttle Recovery Platform Stable Bilateral Squats Resistance 62# Shuttle Recovery Platform Stable Shuttle Balance Red Details WBOS (EO/EC), Staggered, Lat weight shift Neuro Re-Education Treatment Balance Activities 7 Details Hurdles /c foam 6 Details Amb /c head turns Comments Horizontal/Vertical 5 Details Tandem ambulation Equipment @ rail PT-OP-T Assessment and Plan Start: 05/02/21 11:17 Freq: Status: Active Protocol: Document 05/14/21 11:15 DCW (Rec: 05/14/21 11:58 DCW [id number]) Physical Therapy Assessment Impairments Impairments Balance,Functional Activities, Functional Mobility,Gait, Strength Goals Three Impairment Pt presents as a falls risk, per DGI score of 15/24 Marine Equipment Test Engineer Goal (LTG) Pt to increase DGI score at least 5 points to 20/24 to demonstrate decreased falls risk. LTG Duration 07/02/21 Two Impairment Pt displays decreased LE weakness bilaterally Marine Equipment Test Engineer Goal (LTG) Pt to increase bilateral hip abduction/adduction to at least 4-/5 to improve stability of pelvis during gait LTG Duration 07/02/21 One Impairment Pt does not have an appropriate home exercise program Short Term Goal (STG) Pt to be independent and compliant with an appropriate HEP STG Duration 06/01/21 Assessment Summary Assessment Pt noticeably more fatigued today, requested rest breaks multiple times, but is doing pretty well with her stability . Physical Therapy Plan Frequency and Duration Frequency of Treatment 2x/Week Duration of Treatment Two months Plan of Care Start Date 05/02/21 Plan of Care End Date 07/02/21 Therapeutic Interventions Therapeutic Interventions Balance Training,Coordination Training,Home Exercise Program ,Neuromuscular Re-education, Patient/Caregiver Education, Self-Care/Home Management,Soft Tissue Mobilization, Therapeutic Activities, Therapeutic Exercises Next Visit Focus/Plan Next Note Type Treatment Note Next Visit Plan Balance training, TUG, LE strengthening
--- NOTE | 2021-05-17 11:59 | PT.OTN ---
Current Diagnoses Unspecified abnormalities of gait and mobility (05/17/21) History of falling (05/17/21) Physical Therapy Treatment Note PT-OP-A Visit Information Start: 05/02/21 11:17 Freq: Status: Active Protocol: Document 05/17/21 11:15 DCW (Rec: 05/17/21 11:58 DCW [id number]) Out-Patient Physical Therapy Visit Information Visit Information Visit Type Treatment Note Visit Start Time 11:15 Visit Stop Time 12:00 Total Visit Minutes 45 Visit Number 6 Number of CURTAIN FITTER Visits 0 Evaluation Information Evaluation Date 05/02/21 PT-OP-B Current Condition Start: 05/02/21 11:17 Freq: Status: Active Protocol: Document 05/02/21 09:45 DCW (Rec: 05/02/21 11:34 DCW [id number]) Current Condition History of Current Condition Onset Date ~One year Current Complaints Worsening balance/stability History of Current Condition Pt is an 85 year old female presenting to skilled therapy with complaint of worsening balance and stabililty. Pt reports a fall 2-3 weeks ago where she was in her bedroom, turned quickly, lost her balance, lunged for the bed, missed, and ended up on the floor. Pt reports her left leg was quite bruised. Pt was also shocked that she was unable to get herself up, and needed her daughter to bring over a hard dining room chair for support. Pt reports she usually lives in an independent fpc community in [place], and does a lot of walking around the very large building, up to two miles a day. Unfortunately, for the last 16 months, she has been living here in [place] with her daughter, who was diagnosed with cancer and has been undergoing intensive chemo. Because of this, pt has been much less active than usual. Notes she uses a 4WW when out in the community, but just uses a wayne when at home. Pt does note that she has had spinal problems all her life, starting when she was about 32 . Has a history of 2 compression fractures, treated with vertoplasty, which are now 100% better. Notes she also has a history on Meniere' s disease, however has not had an episode in 20+ years. Treatment Goals Patient/Caregiver Goals Improve balance, decrease fear of falling PT-OP-C Subjective Start: 05/02/21 11:17 Freq: Status: Active Protocol: Document 05/17/21 11:15 DCW (Rec: 05/17/21 11:58 DCW [id number]) OP-PT Subjective Patient Comments Patient Comments I've started doing my back exercises again, and I'm hoping that will help with core strengthening. PT-OP-D Balance Start: 05/02/21 11:17 Freq: Status: Active Protocol: Document 05/02/21 09:45 DCW (Rec: 05/02/21 11:34 DCW [id number]) OP-PT Balance Assessment Sitting Balance Static Sitting Balance Ability Normal Standing Balance Static Standing Balance Ability Good Dynamic Standing Balance Ability Fair Device Used None Balance Tests De La Fuente Balance Test De La Fuente Balance Test Score 47/56 De La Fuente Impairment Rating 1 to 19% Impaired (Score 45-55 ) De La Fuente Balance Assessment Evaluation Sitting to Standing Ability Independent w/out Hands Unsupported Stance Safely- 2 minutes Sitting Unsupported, Feet on Floor Safely- 2 minutes Standing to Sitting Ability Safely, Minimal Hand Use Transfer Ability Safely, Minimal Hand Use Unsupported Stance- Eyes Closed Supervision, 10 seconds Unsupported Stance- Eyes Open Independent, 1 minute Reaching Forward Standing Safely, 5 inches Pick- Up Object From Floor Supervision Look Behind Shoulder - Standing Shifts Weight Well Turning 360 Degrees Turns slowly, but safely Unsupported Stance, Alternating Feet on (I)- 8 Steps in > 20 secs Stair Unsupported Tandem Stance Holds Tandem- 30 seconds Unilateral Leg Stance Lifts Leg/Holds > 3 secs Total Score De La Fuente Total Score (out of 56 points) 47 De La Fuente Impairment Rating 1 to 19% Impaired (Score 45-55 ) Vazquez Fall Scale Copyright Permission PT-OP-E Functional Tests Start: 05/02/21 11:17 Freq: Status: Active Protocol: Document 05/04/21 09:02 DCW (Rec: 05/04/21 10:33 DCW [id number]) Functional Tests Timed Up and Go (TUG) Score 14.68 Comments 3-trial average (15.24, 14.57, 14.23) TUG Impairment Rating 40 to <60% Impaired (Score 14- 15) PT-OP-M Strength Start: 05/02/21 11:34 Freq: Status: Active Protocol: Document 05/02/21 09:45 DCW (Rec: 05/02/21 11:49 DCW [id number]) Hip Strength Hip Manual Muscle Testing Right Flexion (L2) 4- Good- Extension (S1) 4 Good Abduction 3 Fair Adduction 3 Fair Left Flexion (L2) 4- Good- Extension (S1) 4 Good Abduction 3 Fair Adduction 3 Fair Knee Strength Knee Manual Muscle Testing Right Flexion (S2) 4- Good- Extension (L3) 4 Good Left Flexion (S2) 4- Good- Extension (L3) 4 Good Ankle/Foot Strength Ankle and Foot Manual Muscle Testing Right Dorsiflexion (L4) 4 Good Plantarflexion (S1) 4- Good- Left Dorsiflexion (L4) 4 Good Plantarflexion (S1) 4- Good- PT-OP-Q Treatments Start: 05/02/21 11:17 Freq: Status: Active Protocol: Document 05/17/21 11:15 DCW (Rec: 05/17/21 11:58 DCW [id number]) Cardio Equipment Recumbent Elliptical ([employer]) Duration (Minutes) 5 Resistance 7->6 Seat Position 6 Gym Equipment Shuttle Recovery Unilateral Squats Resistance 37# Shuttle Recovery Platform Stable Bilateral Squats Resistance 62# Shuttle Recovery Platform Stable Shuttle Balance Red Details WBOS (EO/EC), Staggered, Lat weight shift Therapeutic Exercises Sitting Exercises 1 Sitting Exercise Name 4-way ankle flexion Side bilateral Resistance Lv 3 Neuro Re-Education Treatment Balance Activities 7 Details Hurdles /c foam 6 Details Amb /c head turns Comments Horizontal/Vertical 5 Details Tandem ambulation Equipment @ rail PT-OP-T Assessment and Plan Start: 05/02/21 11:17 Freq: Status: Active Protocol: Document 05/17/21 11:15 DCW (Rec: 05/17/21 11:58 DCW [id number]) Physical Therapy Assessment Impairments Impairments Balance,Functional Activities, Functional Mobility,Gait, Strength Goals Three Impairment Pt presents as a falls risk, per DGI score of 15/24 Straddle Carrier Operator Goal (LTG) Pt to increase DGI score at least 5 points to 20/24 to demonstrate decreased falls risk. LTG Duration 07/02/21 Two Impairment Pt displays decreased LE weakness bilaterally [facility] Goal (LTG) Pt to increase bilateral hip abduction/adduction to at least 4-/5 to improve stability of pelvis during gait LTG Duration 07/02/21 One Impairment Pt does not have an appropriate home exercise program Short Term Goal (STG) Pt to be independent and compliant with an appropriate HEP STG Duration 06/01/21 Assessment Summary Assessment Pt improved today, showing increased stability with dynamic balance challenge Physical Therapy Plan Frequency and Duration Frequency of Treatment 2x/Week Duration of Treatment Two months Plan of Care Start Date 05/02/21 Plan of Care End Date 07/02/21 Therapeutic Interventions Therapeutic Interventions Balance Training,Coordination Training,Home Exercise Program ,Neuromuscular Re-education, Patient/Caregiver Education, Self-Care/Home Management,Soft Tissue Mobilization, Therapeutic Activities, Therapeutic Exercises Next Visit Focus/Plan Next Note Type Treatment Note Next Visit Plan Balance training, TUG, LE strengthening
--- NOTE | 2021-05-28 10:30 | PT.OTN ---
Current Diagnoses Unspecified abnormalities of gait and mobility (05/28/21) History of falling (05/28/21) Physical Therapy Treatment Note PT-OP-A Visit Information Start: 05/02/21 11:17 Freq: Status: Active Protocol: Document 05/28/21 09:45 DCW (Rec: 05/28/21 10:30 DCW [id number]) Out-Patient Physical Therapy Visit Information Visit Information Visit Type Treatment Note Visit Start Time 09:45 Visit Stop Time 10:30 Total Visit Minutes 45 Visit Number 7 Number of SOFTWARE SPECIALIST Visits 0 Evaluation Information Evaluation Date 05/02/21 PT-OP-B Current Condition Start: 05/02/21 11:17 Freq: Status: Active Protocol: Document 05/02/21 09:45 DCW (Rec: 05/02/21 11:34 DCW [id number]) Current Condition History of Current Condition Onset Date ~One year Current Complaints Worsening balance/stability History of Current Condition Pt is an 85 year old female presenting to skilled therapy with complaint of worsening balance and stabililty. Pt reports a fall 2-3 weeks ago where she was in her bedroom, turned quickly, lost her balance, lunged for the bed, missed, and ended up on the floor. Pt reports her left leg was quite bruised. Pt was also shocked that she was unable to get herself up, and needed her daughter to bring over a hard dining room chair for support. Pt reports she usually lives in an independent detention community in [place], and does a lot of walking around the very large building, up to two miles a day. Unfortunately, for the last 16 months, she has been living here in [place] with her daughter, who was diagnosed with cancer and has been undergoing intensive chemo. Because of this, pt has been much less active than usual. Notes she uses a 4WW when out in the community, but just uses a wayne when at home. Pt does note that she has had spinal problems all her life, starting when she was about 32 . Has a history of 2 compression fractures, treated with vertoplasty, which are now 100% better. Notes she also has a history on Meniere' s disease, however has not had an episode in 20+ years. Treatment Goals Patient/Caregiver Goals Improve balance, decrease fear of falling PT-OP-C Subjective Start: 05/02/21 11:17 Freq: Status: Active Protocol: Document 05/28/21 09:45 DCW (Rec: 05/28/21 10:30 DCW [id number]) OP-PT Subjective Patient Comments Patient Comments I'm a little bit wobbly, but I managed to do a lot of walking during my week in [place]. PT-OP-D Balance Start: 05/02/21 11:17 Freq: Status: Active Protocol: Document 05/02/21 09:45 DCW (Rec: 05/02/21 11:34 DCW [id number]) OP-PT Balance Assessment Sitting Balance Static Sitting Balance Ability Normal Standing Balance Static Standing Balance Ability Good Dynamic Standing Balance Ability Fair Device Used None Balance Tests De La Fuente Balance Test De La Fuente Balance Test Score 47/56 De La Fuente Impairment Rating 1 to 19% Impaired (Score 45-55 ) De La Fuente Balance Assessment Evaluation Sitting to Standing Ability Independent w/out Hands Unsupported Stance Safely- 2 minutes Sitting Unsupported, Feet on Floor Safely- 2 minutes Standing to Sitting Ability Safely, Minimal Hand Use Transfer Ability Safely, Minimal Hand Use Unsupported Stance- Eyes Closed Supervision, 10 seconds Unsupported Stance- Eyes Open Independent, 1 minute Reaching Forward Standing Safely, 5 inches Pick- Up Object From Floor Supervision Look Behind Shoulder - Standing Shifts Weight Well Turning 360 Degrees Turns slowly, but safely Unsupported Stance, Alternating Feet on (I)- 8 Steps in > 20 secs Stair Unsupported Tandem Stance Holds Tandem- 30 seconds Unilateral Leg Stance Lifts Leg/Holds > 3 secs Total Score De La Fuente Total Score (out of 56 points) 47 De La Fuente Impairment Rating 1 to 19% Impaired (Score 45-55 ) Vazquez Fall Scale Copyright Permission PT-OP-E Functional Tests Start: 05/02/21 11:17 Freq: Status: Active Protocol: Document 05/04/21 09:02 DCW (Rec: 05/04/21 10:33 DCW [id number]) Functional Tests Timed Up and Go (TUG) Score 14.68 Comments 3-trial average (15.24, 14.57, 14.23) TUG Impairment Rating 40 to <60% Impaired (Score 14- 15) PT-OP-M Strength Start: 05/02/21 11:34 Freq: Status: Active Protocol: Document 05/02/21 09:45 DCW (Rec: 05/02/21 11:49 DCW [id number]) Hip Strength Hip Manual Muscle Testing Right Flexion (L2) 4- Good- Extension (S1) 4 Good Abduction 3 Fair Adduction 3 Fair Left Flexion (L2) 4- Good- Extension (S1) 4 Good Abduction 3 Fair Adduction 3 Fair Knee Strength Knee Manual Muscle Testing Right Flexion (S2) 4- Good- Extension (L3) 4 Good Left Flexion (S2) 4- Good- Extension (L3) 4 Good Ankle/Foot Strength Ankle and Foot Manual Muscle Testing Right Dorsiflexion (L4) 4 Good Plantarflexion (S1) 4- Good- Left Dorsiflexion (L4) 4 Good Plantarflexion (S1) 4- Good- PT-OP-Q Treatments Start: 05/02/21 11:17 Freq: Status: Active Protocol: Document 05/28/21 09:45 DCW (Rec: 05/28/21 10:30 DCW [id number]) Cardio Equipment Recumbent Elliptical ([employer]) Duration (Minutes) 5 Resistance 8 Seat Position 6 Gym Equipment Shuttle Recovery Unilateral Squats Resistance 37# Shuttle Recovery Platform Stable Bilateral Squats Resistance 62# Shuttle Recovery Platform Stable Shuttle Balance Red Details WBOS (EO/EC), Staggered, Lat weight shift Therapeutic Exercises Sitting Exercises 1 Sitting Exercise Name 4-way ankle flexion Side bilateral Resistance Lv 3 Other Exercises 1 Other Exercise Name Resisted Abduction Resistance Green Equipment Used T-band Comments Side-stepping Neuro Re-Education Treatment Balance Activities 8 Details SLS Surface Kurtz foam 5 Details Tandem ambulation Equipment @ rail PT-OP-T Assessment and Plan Start: 05/02/21 11:17 Freq: Status: Active Protocol: Document 05/28/21 09:45 DCW (Rec: 05/28/21 10:30 DCW [id number]) Physical Therapy Assessment Impairments Impairments Balance,Functional Activities, Functional Mobility,Gait, Strength Goals Three Impairment Pt presents as a falls risk, per DGI score of 15/24 Shelter Goal (LTG) Pt to increase DGI score at least 5 points to 20/24 to demonstrate decreased falls risk. LTG Duration 07/02/21 Two Impairment Pt displays decreased LE weakness bilaterally Creative Project Manager Goal (LTG) Pt to increase bilateral hip abduction/adduction to at least 4-/5 to improve stability of pelvis during gait LTG Duration 11/29/21 One Impairment Pt does not have an appropriate home exercise program Short Term Goal (STG) Pt to be independent and compliant with an appropriate HEP STG Duration 06/01/21 Assessment Summary Assessment Pt doing well today after her short break during her trip to [place]. Showing improved stability on Shuttle Balance. Physical Therapy Plan Frequency and Duration Frequency of Treatment 2x/Week Duration of Treatment Two months Plan of Care Start Date 05/02/21 Plan of Care End Date 07/02/21 Therapeutic Interventions Therapeutic Interventions Balance Training,Coordination Training,Home Exercise Program ,Neuromuscular Re-education, Patient/Caregiver Education, Self-Care/Home Management,Soft Tissue Mobilization, Therapeutic Activities, Therapeutic Exercises Next Visit Focus/Plan Next Note Type Treatment Note Next Visit Plan Balance training, TUG, LE strengthening
--- NOTE | 2021-06-04 10:33 | PT.OTN ---
Current Diagnoses Unspecified abnormalities of gait and mobility (06/04/21) History of falling (06/04/21) Physical Therapy Treatment Note PT-OP-A Visit Information Start: 05/02/21 11:17 Freq: Status: Active Protocol: Document 06/04/21 09:45 DCW (Rec: 06/04/21 10:32 DCW [id number]) Out-Patient Physical Therapy Visit Information Visit Information Visit Type Treatment Note Visit Start Time 09:45 Visit Stop Time 10:30 Total Visit Minutes 45 Visit Number 8 Number of SOFTWARE SALES CONSULTANT Visits 0 Evaluation Information Evaluation Date 05/02/21 PT-OP-B Current Condition Start: 05/02/21 11:17 Freq: Status: Active Protocol: Document 05/02/21 09:45 DCW (Rec: 05/02/21 11:34 DCW [id number]) Current Condition History of Current Condition Onset Date ~One year Current Complaints Worsening balance/stability History of Current Condition Pt is an 85 year old female presenting to skilled therapy with complaint of worsening balance and stabililty. Pt reports a fall 2-3 weeks ago where she was in her bedroom, turned quickly, lost her balance, lunged for the bed, missed, and ended up on the floor. Pt reports her left leg was quite bruised. Pt was also shocked that she was unable to get herself up, and needed her daughter to bring over a hard dining room chair for support. Pt reports she usually lives in an independent halfway community in [place], and does a lot of walking around the very large building, up to two miles a day. Unfortunately, for the last 16 months, she has been living here in [place] with her daughter, who was diagnosed with cancer and has been undergoing intensive chemo. Because of this, pt has been much less active than usual. Notes she uses a 4WW when out in the community, but just uses a wayne when at home. Pt does note that she has had spinal problems all her life, starting when she was about 32 . Has a history of 2 compression fractures, treated with vertoplasty, which are now 100% better. Notes she also has a history on Meniere' s disease, however has not had an episode in 20+ years. Treatment Goals Patient/Caregiver Goals Improve balance, decrease fear of falling PT-OP-C Subjective Start: 05/02/21 11:17 Freq: Status: Active Protocol: Document 06/04/21 09:45 DCW (Rec: 06/04/21 10:32 DCW [id number]) OP-PT Subjective Patient Comments Patient Comments I feel fine, just a little wobbly. PT-OP-D Balance Start: 05/02/21 11:17 Freq: Status: Active Protocol: Document 05/02/21 09:45 DCW (Rec: 05/02/21 11:34 DCW [id number]) OP-PT Balance Assessment Sitting Balance Static Sitting Balance Ability Normal Standing Balance Static Standing Balance Ability Good Dynamic Standing Balance Ability Fair Device Used None Balance Tests De La Fuente Balance Test De La Fuente Balance Test Score 47/56 De La Fuente Impairment Rating 1 to 19% Impaired (Score 45-55 ) De La Fuente Balance Assessment Evaluation Sitting to Standing Ability Independent w/out Hands Unsupported Stance Safely- 2 minutes Sitting Unsupported, Feet on Floor Safely- 2 minutes Standing to Sitting Ability Safely, Minimal Hand Use Transfer Ability Safely, Minimal Hand Use Unsupported Stance- Eyes Closed Supervision, 10 seconds Unsupported Stance- Eyes Open Independent, 1 minute Reaching Forward Standing Safely, 5 inches Pick- Up Object From Floor Supervision Look Behind Shoulder - Standing Shifts Weight Well Turning 360 Degrees Turns slowly, but safely Unsupported Stance, Alternating Feet on (I)- 8 Steps in > 20 secs Stair Unsupported Tandem Stance Holds Tandem- 30 seconds Unilateral Leg Stance Lifts Leg/Holds > 3 secs Total Score De La Fuente Total Score (out of 56 points) 47 De La Fuente Impairment Rating 1 to 19% Impaired (Score 45-55 ) Vazquez Fall Scale Copyright Permission PT-OP-E Functional Tests Start: 05/02/21 11:17 Freq: Status: Active Protocol: Document 05/04/21 09:02 DCW (Rec: 05/04/21 10:33 DCW [id number]) Functional Tests Timed Up and Go (TUG) Score 14.68 Comments 3-trial average (15.24, 14.57, 14.23) TUG Impairment Rating 40 to <60% Impaired (Score 14- 15) PT-OP-M Strength Start: 05/02/21 11:34 Freq: Status: Active Protocol: Document 05/02/21 09:45 DCW (Rec: 05/02/21 11:49 DCW [id number]) Hip Strength Hip Manual Muscle Testing Right Flexion (L2) 4- Good- Extension (S1) 4 Good Abduction 3 Fair Adduction 3 Fair Left Flexion (L2) 4- Good- Extension (S1) 4 Good Abduction 3 Fair Adduction 3 Fair Knee Strength Knee Manual Muscle Testing Right Flexion (S2) 4- Good- Extension (L3) 4 Good Left Flexion (S2) 4- Good- Extension (L3) 4 Good Ankle/Foot Strength Ankle and Foot Manual Muscle Testing Right Dorsiflexion (L4) 4 Good Plantarflexion (S1) 4- Good- Left Dorsiflexion (L4) 4 Good Plantarflexion (S1) 4- Good- PT-OP-Q Treatments Start: 05/02/21 11:17 Freq: Status: Active Protocol: Document 06/04/21 09:45 DCW (Rec: 06/04/21 10:32 DCW [id number]) Cardio Equipment Recumbent Elliptical ([employer]) Duration (Minutes) 5 Resistance 7 Seat Position 6 Gym Equipment Shuttle Recovery Unilateral Squats Resistance 37# Shuttle Recovery Platform Stable Bilateral Squats Resistance 62# Shuttle Recovery Platform Stable Shuttle Balance Red Details WBOS (EO/EC), Staggered, Lat weight shift Therapeutic Exercises Sitting Exercises 1 Sitting Exercise Name 4-way ankle flexion Side bilateral Resistance Lv 3 Other Exercises 1 Other Exercise Name Resisted Abduction Resistance Green Equipment Used T-band Comments Side-stepping Neuro Re-Education Treatment Balance Activities 8 Details SLS Surface Kurtz foam 7 Details Hurdles Comments Fwd, Lateral PT-OP-T Assessment and Plan Start: 05/02/21 11:17 Freq: Status: Active Protocol: Document 06/04/21 09:45 DCW (Rec: 06/04/21 10:32 DCW [id number]) Physical Therapy Assessment Impairments Impairments Balance,Functional Activities, Functional Mobility,Gait, Strength Goals Three Impairment Pt presents as a falls risk, per DGI score of 15/24 Turn Out Goal (LTG) Pt to increase DGI score at least 5 points to 20/24 to demonstrate decreased falls risk. LTG Duration 07/02/21 Two Impairment Pt displays decreased LE weakness bilaterally Turn Out Goal (LTG) Pt to increase bilateral hip abduction/adduction to at least 4-/5 to improve stability of pelvis during gait LTG Duration 07/02/21 One Impairment Pt does not have an appropriate home exercise program Short Term Goal (STG) Pt to be independent and compliant with an appropriate HEP STG Duration 06/01/21 Assessment Summary Assessment Pt feeling that things are going well today, notable improvement with Shuttle Balance. Physical Therapy Plan Frequency and Duration Frequency of Treatment 2x/Week Duration of Treatment Two months Plan of Care Start Date 05/02/21 Plan of Care End Date 07/02/21 Therapeutic Interventions Therapeutic Interventions Balance Training,Coordination Training,Home Exercise Program ,Neuromuscular Re-education, Patient/Caregiver Education, Self-Care/Home Management,Soft Tissue Mobilization, Therapeutic Activities, Therapeutic Exercises Next Visit Focus/Plan Next Note Type Treatment Note Next Visit Plan Balance training, TUG, LE strengthening
--- NOTE | 2021-06-07 10:28 | PT.OTN ---
Current Diagnoses Unspecified abnormalities of gait and mobility (06/07/21) History of falling (06/07/21) Physical Therapy Treatment Note PT-OP-A Visit Information Start: 05/02/21 11:17 Freq: Status: Active Protocol: Document 06/07/21 09:45 DCW (Rec: 06/07/21 10:28 DCW [id number]) Out-Patient Physical Therapy Visit Information Visit Information Visit Type Treatment Note Visit Start Time 09:45 Visit Stop Time 10:30 Total Visit Minutes 45 Visit Number 9 Number of METAL PRECISION MACHINE ASSEMBLER Visits 0 Evaluation Information Evaluation Date 05/02/21 PT-OP-B Current Condition Start: 05/02/21 11:17 Freq: Status: Active Protocol: Document 05/02/21 09:45 DCW (Rec: 05/02/21 11:34 DCW [id number]) Current Condition History of Current Condition Onset Date ~One year Current Complaints Worsening balance/stability History of Current Condition Pt is an 85 year old female presenting to skilled therapy with complaint of worsening balance and stabililty. Pt reports a fall 2-3 weeks ago where she was in her bedroom, turned quickly, lost her balance, lunged for the bed, missed, and ended up on the floor. Pt reports her left leg was quite bruised. Pt was also shocked that she was unable to get herself up, and needed her daughter to bring over a hard dining room chair for support. Pt reports she usually lives in an independent half-way community in [place], and does a lot of walking around the very large building, up to two miles a day. Unfortunately, for the last 16 months, she has been living here in [place] with her daughter, who was diagnosed with cancer and has been undergoing intensive chemo. Because of this, pt has been much less active than usual. Notes she uses a 4WW when out in the community, but just uses a wayne when at home. Pt does note that she has had spinal problems all her life, starting when she was about 32 . Has a history of 2 compression fractures, treated with vertoplasty, which are now 100% better. Notes she also has a history on Meniere' s disease, however has not had an episode in 20+ years. Treatment Goals Patient/Caregiver Goals Improve balance, decrease fear of falling PT-OP-C Subjective Start: 05/02/21 11:17 Freq: Status: Active Protocol: Document 06/07/21 09:45 DCW (Rec: 06/07/21 10:28 DCW [id number]) OP-PT Subjective Patient Comments Patient Comments Pt feeling pretty good today, actually, notes she was able to go to the gym at the [facility] yesterday and get a workout in for the first time. PT-OP-D Balance Start: 05/02/21 11:17 Freq: Status: Active Protocol: Document 05/02/21 09:45 DCW (Rec: 05/02/21 11:34 DCW [id number]) OP-PT Balance Assessment Sitting Balance Static Sitting Balance Ability Normal Standing Balance Static Standing Balance Ability Good Dynamic Standing Balance Ability Fair Device Used None Balance Tests De La Fuente Balance Test De La Fuente Balance Test Score 47/56 De La Fuente Impairment Rating 1 to 19% Impaired (Score 45-55 ) De La Fuente Balance Assessment Evaluation Sitting to Standing Ability Independent w/out Hands Unsupported Stance Safely- 2 minutes Sitting Unsupported, Feet on Floor Safely- 2 minutes Standing to Sitting Ability Safely, Minimal Hand Use Transfer Ability Safely, Minimal Hand Use Unsupported Stance- Eyes Closed Supervision, 10 seconds Unsupported Stance- Eyes Open Independent, 1 minute Reaching Forward Standing Safely, 5 inches Pick- Up Object From Floor Supervision Look Behind Shoulder - Standing Shifts Weight Well Turning 360 Degrees Turns slowly, but safely Unsupported Stance, Alternating Feet on (I)- 8 Steps in > 20 secs Stair Unsupported Tandem Stance Holds Tandem- 30 seconds Unilateral Leg Stance Lifts Leg/Holds > 3 secs Total Score De La Fuente Total Score (out of 56 points) 47 De La Fuente Impairment Rating 1 to 19% Impaired (Score 45-55 ) Vazquez Fall Scale Copyright Permission PT-OP-E Functional Tests Start: 05/02/21 11:17 Freq: Status: Active Protocol: Document 05/04/21 09:02 DCW (Rec: 05/04/21 10:33 DCW [id number]) Functional Tests Timed Up and Go (TUG) Score 14.68 Comments 3-trial average (15.24, 14.57, 14.23) TUG Impairment Rating 40 to <60% Impaired (Score 14- 15) PT-OP-M Strength Start: 05/02/21 11:34 Freq: Status: Active Protocol: Document 05/02/21 09:45 DCW (Rec: 05/02/21 11:49 DCW [id number]) Hip Strength Hip Manual Muscle Testing Right Flexion (L2) 4- Good- Extension (S1) 4 Good Abduction 3 Fair Adduction 3 Fair Left Flexion (L2) 4- Good- Extension (S1) 4 Good Abduction 3 Fair Adduction 3 Fair Knee Strength Knee Manual Muscle Testing Right Flexion (S2) 4- Good- Extension (L3) 4 Good Left Flexion (S2) 4- Good- Extension (L3) 4 Good Ankle/Foot Strength Ankle and Foot Manual Muscle Testing Right Dorsiflexion (L4) 4 Good Plantarflexion (S1) 4- Good- Left Dorsiflexion (L4) 4 Good Plantarflexion (S1) 4- Good- PT-OP-Q Treatments Start: 05/02/21 11:17 Freq: Status: Active Protocol: Document 06/07/21 09:45 DCW (Rec: 06/07/21 10:28 DCW [id number]) Cardio Equipment Recumbent Elliptical ([employer]) Duration (Minutes) 5 Resistance 7 Seat Position 6 Gym Equipment Shuttle Recovery Unilateral Squats Resistance 37# Shuttle Recovery Platform Stable Bilateral Squats Resistance 62# Shuttle Recovery Platform Stable Shuttle Balance Red Details WBOS (EO/EC), Staggered, Lat weight shift Therapeutic Exercises Sitting Exercises 1 Sitting Exercise Name 4-way ankle flexion Side bilateral Resistance Lv 3 Other Exercises 1 Other Exercise Name Resisted Abduction Resistance Green Equipment Used T-band Comments Side-stepping Neuro Re-Education Treatment Balance Activities 8 Details SLS Surface Kurtz foam 5 Details Tandem ambulation Equipment @ rail PT-OP-T Assessment and Plan Start: 05/02/21 11:17 Freq: Status: Active Protocol: Document 06/07/21 09:45 DCW (Rec: 06/07/21 10:28 DCW [id number]) Physical Therapy Assessment Impairments Impairments Balance,Functional Activities, Functional Mobility,Gait, Strength Goals Three Impairment Pt presents as a falls risk, per DGI score of 15/24 Intermediate Goal (LTG) Pt to increase DGI score at least 5 points to 20/24 to demonstrate decreased falls risk. LTG Duration 07/02/21 Two Impairment Pt displays decreased LE weakness bilaterally Intermediate Goal (LTG) Pt to increase bilateral hip abduction/adduction to at least 4-/5 to improve stability of pelvis during gait LTG Duration 11/29/21 One Impairment Pt does not have an appropriate home exercise program Short Term Goal (STG) Pt to be independent and compliant with an appropriate HEP STG Duration 06/01/21 Assessment Summary Assessment Pt did significantly better with balance today, both on Shuttle balance and with SLS on foam today. Physical Therapy Plan Frequency and Duration Frequency of Treatment 2x/Week Duration of Treatment Two months Plan of Care Start Date 05/02/21 Plan of Care End Date 07/02/21 Therapeutic Interventions Therapeutic Interventions Balance Training,Coordination Training,Home Exercise Program ,Neuromuscular Re-education, Patient/Caregiver Education, Self-Care/Home Management,Soft Tissue Mobilization, Therapeutic Activities, Therapeutic Exercises Next Visit Focus/Plan Next Note Type Treatment Note Next Visit Plan Balance training, TUG, LE strengthening
--- NOTE | 2021-06-11 10:29 | PT.OTN ---
Current Diagnoses Unspecified abnormalities of gait and mobility (06/11/21) History of falling (06/11/21) Physical Therapy Treatment Note PT-OP-A Visit Information Start: 05/02/21 11:17 Freq: Status: Active Protocol: Document 06/11/21 09:45 DCW (Rec: 06/11/21 10:29 DCW [id number]) Out-Patient Physical Therapy Visit Information Visit Information Visit Type Treatment Note Visit Start Time 09:45 Visit Stop Time 10:30 Total Visit Minutes 45 Visit Number 10 Number of LIP CUTTER Visits 0 Evaluation Information Evaluation Date 05/02/21 PT-OP-B Current Condition Start: 05/02/21 11:17 Freq: Status: Active Protocol: Document 05/02/21 09:45 DCW (Rec: 05/02/21 11:34 DCW [id number]) Current Condition History of Current Condition Onset Date ~One year Current Complaints Worsening balance/stability History of Current Condition Pt is an 85 year old female presenting to skilled therapy with complaint of worsening balance and stabililty. Pt reports a fall 2-3 weeks ago where she was in her bedroom, turned quickly, lost her balance, lunged for the bed, missed, and ended up on the floor. Pt reports her left leg was quite bruised. Pt was also shocked that she was unable to get herself up, and needed her daughter to bring over a hard dining room chair for support. Pt reports she usually lives in an [facility] community in [place], and does a lot of walking around the very large building, up to two miles a day. Unfortunately, for the last 16 months, she has been living here in [place] with her daughter, who was diagnosed with cancer and has been undergoing intensive chemo. Because of this, pt has been much less active than usual. Notes she uses a 4WW when out in the community, but just uses a wayne when at home. Pt does note that she has had spinal problems all her life, starting when she was about 32 . Has a history of 2 compression fractures, treated with vertoplasty, which are now 100% better. Notes she also has a history on Meniere' s disease, however has not had an episode in 20+ years. Treatment Goals Patient/Caregiver Goals Improve balance, decrease fear of falling PT-OP-C Subjective Start: 05/02/21 11:17 Freq: Status: Active Protocol: Document 06/11/21 09:45 DCW (Rec: 06/11/21 10:29 DCW [id number]) OP-PT Subjective Patient Comments Patient Comments Hopefully my balance is as good today as it was last time . PT-OP-D Balance Start: 05/02/21 11:17 Freq: Status: Active Protocol: Document 05/02/21 09:45 DCW (Rec: 05/02/21 11:34 DCW [id number]) OP-PT Balance Assessment Sitting Balance Static Sitting Balance Ability Normal Standing Balance Static Standing Balance Ability Good Dynamic Standing Balance Ability Fair Device Used None Balance Tests De La Fuente Balance Test De La Fuente Balance Test Score 47/56 De La Fuente Impairment Rating 1 to 19% Impaired (Score 45-55 ) De La Fuente Balance Assessment Evaluation Sitting to Standing Ability Independent w/out Hands Unsupported Stance Safely- 2 minutes Sitting Unsupported, Feet on Floor Safely- 2 minutes Standing to Sitting Ability Safely, Minimal Hand Use Transfer Ability Safely, Minimal Hand Use Unsupported Stance- Eyes Closed Supervision, 10 seconds Unsupported Stance- Eyes Open Independent, 1 minute Reaching Forward Standing Safely, 5 inches Pick- Up Object From Floor Supervision Look Behind Shoulder - Standing Shifts Weight Well Turning 360 Degrees Turns slowly, but safely Unsupported Stance, Alternating Feet on (I)- 8 Steps in > 20 secs Stair Unsupported Tandem Stance Holds Tandem- 30 seconds Unilateral Leg Stance Lifts Leg/Holds > 3 secs Total Score De La Fuente Total Score (out of 56 points) 47 De La Fuente Impairment Rating 1 to 19% Impaired (Score 45-55 ) Vazquez Fall Scale Copyright Permission PT-OP-E Functional Tests Start: 05/02/21 11:17 Freq: Status: Active Protocol: Document 05/04/21 09:02 DCW (Rec: 05/04/21 10:33 DCW [id number]) Functional Tests Timed Up and Go (TUG) Score 14.68 Comments 3-trial average (15.24, 14.57, 14.23) TUG Impairment Rating 40 to <60% Impaired (Score 14- 15) PT-OP-M Strength Start: 05/02/21 11:34 Freq: Status: Active Protocol: Document 05/02/21 09:45 DCW (Rec: 05/02/21 11:49 DCW [id number]) Hip Strength Hip Manual Muscle Testing Right Flexion (L2) 4- Good- Extension (S1) 4 Good Abduction 3 Fair Adduction 3 Fair Left Flexion (L2) 4- Good- Extension (S1) 4 Good Abduction 3 Fair Adduction 3 Fair Knee Strength Knee Manual Muscle Testing Right Flexion (S2) 4- Good- Extension (L3) 4 Good Left Flexion (S2) 4- Good- Extension (L3) 4 Good Ankle/Foot Strength Ankle and Foot Manual Muscle Testing Right Dorsiflexion (L4) 4 Good Plantarflexion (S1) 4- Good- Left Dorsiflexion (L4) 4 Good Plantarflexion (S1) 4- Good- PT-OP-Q Treatments Start: 05/02/21 11:17 Freq: Status: Active Protocol: Document 06/11/21 09:45 DCW (Rec: 06/11/21 10:29 DCW [id number]) Cardio Equipment Recumbent Elliptical ([employer]) Duration (Minutes) 5 Resistance 7 Seat Position 6 Gym Equipment Shuttle Recovery Unilateral Squats Resistance 37# Shuttle Recovery Platform Stable Bilateral Squats Resistance 62# Shuttle Recovery Platform Stable Shuttle Balance Red Details WBOS (EO/EC), Staggered, Lat weight shift Therapeutic Exercises Sitting Exercises 1 Sitting Exercise Name 4-way ankle flexion Side bilateral Resistance Lv 3 Neuro Re-Education Treatment Balance Activities 8 Details SLS Surface Kurtz foam 7 Details Hurdles Comments Fwd, Lateral 6 Details Tandem Stance PT-OP-T Assessment and Plan Start: 05/02/21 11:17 Freq: Status: Active Protocol: Document 06/11/21 09:45 DCW (Rec: 06/11/21 10:29 DCW [id number]) Physical Therapy Assessment Impairments Impairments Balance,Functional Activities, Functional Mobility,Gait, Strength Goals Three Impairment Pt presents as a falls risk, per DGI score of 15/24 Senior Living Goal (LTG) Pt to increase DGI score at least 5 points to 20/24 to demonstrate decreased falls risk. LTG Duration 07/02/21 - Improving Two Impairment Pt displays decreased LE weakness bilaterally Senior Living Goal (LTG) Pt to increase bilateral hip abduction/adduction to at least 4-/5 to improve stability of pelvis during gait LTG Duration 07/02/21- Improving One Impairment Pt does not have an appropriate home exercise program Short Term Goal (STG) Pt to be independent and compliant with an appropriate HEP STG Duration Met Assessment Summary Assessment Pt continues to show good progress with balance, has been working at gym independently with strengthening and activity tolerance. Physical Therapy Plan Frequency and Duration Frequency of Treatment 2x/Week Duration of Treatment Two months Plan of Care Start Date 05/02/21 Plan of Care End Date 07/02/21 Therapeutic Interventions Therapeutic Interventions Balance Training,Coordination Training,Home Exercise Program ,Neuromuscular Re-education, Patient/Caregiver Education, Self-Care/Home Management,Soft Tissue Mobilization, Therapeutic Activities, Therapeutic Exercises Next Visit Focus/Plan Next Note Type Treatment Note Next Visit Plan Balance training, TUG, LE strengthening
--- NOTE | 2021-06-13 17:31 | PT.OTN ---
Current Diagnoses Unspecified abnormalities of gait and mobility (06/13/21) History of falling (06/13/21) Physical Therapy Treatment Note PT-OP-A Visit Information Start: 05/02/21 11:17 Freq: Status: Active Protocol: Document 06/13/21 16:45 DCW (Rec: 06/13/21 17:31 DCW [id number]) Out-Patient Physical Therapy Visit Information Visit Information Visit Type Treatment Note Visit Start Time 16:45 Visit Stop Time 17:30 Total Visit Minutes 45 Visit Number 11 Number of WEARING APPAREL FOLDER Visits 0 Evaluation Information Evaluation Date 05/02/21 PT-OP-B Current Condition Start: 05/02/21 11:17 Freq: Status: Active Protocol: Document 05/02/21 09:45 DCW (Rec: 05/02/21 11:34 DCW [id number]) Current Condition History of Current Condition Onset Date ~One year Current Complaints Worsening balance/stability History of Current Condition Pt is an 85 year old female presenting to skilled therapy with complaint of worsening balance and stabililty. Pt reports a fall 2-3 weeks ago where she was in her bedroom, turned quickly, lost her balance, lunged for the bed, missed, and ended up on the floor. Pt reports her left leg was quite bruised. Pt was also shocked that she was unable to get herself up, and needed her daughter to bring over a hard dining room chair for support. Pt reports she usually lives in an independent senior living community in [place], and does a lot of walking around the very large building, up to two miles a day. Unfortunately, for the last 16 months, she has been living here in [place] with her daughter, who was diagnosed with cancer and has been undergoing intensive chemo. Because of this, pt has been much less active than usual. Notes she uses a 4WW when out in the community, but just uses a wayne when at home. Pt does note that she has had spinal problems all her life, starting when she was about 32 . Has a history of 2 compression fractures, treated with vertoplasty, which are now 100% better. Notes she also has a history on Meniere' s disease, however has not had an episode in 20+ years. Treatment Goals Patient/Caregiver Goals Improve balance, decrease fear of falling PT-OP-C Subjective Start: 05/02/21 11:17 Freq: Status: Active Protocol: Document 06/13/21 16:45 DCW (Rec: 06/13/21 17:31 DCW [id number]) OP-PT Subjective Patient Comments Patient Comments Pt's daughter has a big surgery tomorrow as part of her ongoing cancer treatment, so pt is very stressed today. PT-OP-D Balance Start: 05/02/21 11:17 Freq: Status: Active Protocol: Document 05/02/21 09:45 DCW (Rec: 05/02/21 11:34 DCW [id number]) OP-PT Balance Assessment Sitting Balance Static Sitting Balance Ability Normal Standing Balance Static Standing Balance Ability Good Dynamic Standing Balance Ability Fair Device Used None Balance Tests De La Fuente Balance Test De La Fuente Balance Test Score 47/56 De La Fuente Impairment Rating 1 to 19% Impaired (Score 45-55 ) De La Fuente Balance Assessment Evaluation Sitting to Standing Ability Independent w/out Hands Unsupported Stance Safely- 2 minutes Sitting Unsupported, Feet on Floor Safely- 2 minutes Standing to Sitting Ability Safely, Minimal Hand Use Transfer Ability Safely, Minimal Hand Use Unsupported Stance- Eyes Closed Supervision, 10 seconds Unsupported Stance- Eyes Open Independent, 1 minute Reaching Forward Standing Safely, 5 inches Pick- Up Object From Floor Supervision Look Behind Shoulder - Standing Shifts Weight Well Turning 360 Degrees Turns slowly, but safely Unsupported Stance, Alternating Feet on (I)- 8 Steps in > 20 secs Stair Unsupported Tandem Stance Holds Tandem- 30 seconds Unilateral Leg Stance Lifts Leg/Holds > 3 secs Total Score De La Fuente Total Score (out of 56 points) 47 De La Fuente Impairment Rating 1 to 19% Impaired (Score 45-55 ) Vazquez Fall Scale Copyright Permission PT-OP-E Functional Tests Start: 05/02/21 11:17 Freq: Status: Active Protocol: Document 05/04/21 09:02 DCW (Rec: 05/04/21 10:33 DCW [id number]) Functional Tests Timed Up and Go (TUG) Score 14.68 Comments 3-trial average (15.24, 14.57, 14.23) TUG Impairment Rating 40 to <60% Impaired (Score 14- 15) PT-OP-M Strength Start: 05/02/21 11:34 Freq: Status: Active Protocol: Document 05/02/21 09:45 DCW (Rec: 05/02/21 11:49 DCW [id number]) Hip Strength Hip Manual Muscle Testing Right Flexion (L2) 4- Good- Extension (S1) 4 Good Abduction 3 Fair Adduction 3 Fair Left Flexion (L2) 4- Good- Extension (S1) 4 Good Abduction 3 Fair Adduction 3 Fair Knee Strength Knee Manual Muscle Testing Right Flexion (S2) 4- Good- Extension (L3) 4 Good Left Flexion (S2) 4- Good- Extension (L3) 4 Good Ankle/Foot Strength Ankle and Foot Manual Muscle Testing Right Dorsiflexion (L4) 4 Good Plantarflexion (S1) 4- Good- Left Dorsiflexion (L4) 4 Good Plantarflexion (S1) 4- Good- PT-OP-Q Treatments Start: 05/02/21 11:17 Freq: Status: Active Protocol: Document 06/13/21 16:45 DCW (Rec: 06/13/21 17:31 DCW [id number]) Cardio Equipment Recumbent Elliptical ([employer]) Duration (Minutes) 5 Resistance 7 Seat Position 6 Gym Equipment Shuttle Recovery Unilateral Squats Resistance 37# Shuttle Recovery Platform Stable Bilateral Squats Resistance 62# Shuttle Recovery Platform Stable Shuttle Balance Red Details WBOS (EO/EC), Staggered, Lat weight shift Therapeutic Exercises Sitting Exercises 1 Sitting Exercise Name 4-way ankle flexion Side bilateral Resistance Lv 3 Other Exercises 1 Other Exercise Name Resisted Abduction Resistance Green Equipment Used T-band Comments Side-stepping Neuro Re-Education Treatment Balance Activities 8 Details SLS Surface Kurtz foam 6 Details Tandem Stance PT-OP-T Assessment and Plan Start: 05/02/21 11:17 Freq: Status: Active Protocol: Document 06/13/21 16:45 DCW (Rec: 06/13/21 17:31 DCW [id number]) Physical Therapy Assessment Impairments Impairments Balance,Functional Activities, Functional Mobility,Gait, Strength Goals Three Impairment Pt presents as a falls risk, per DGI score of 15/24 M[facility] Goal (LTG) Pt to increase DGI score at least 5 points to 20/24 to demonstrate decreased falls risk. LTG Duration 07/02/21 - Improving Two Impairment Pt displays decreased LE weakness bilaterally Geoscience Specialist Goal (LTG) Pt to increase bilateral hip abduction/adduction to at least 4-/5 to improve stability of pelvis during gait LTG Duration 07/02/21- Improving One Impairment Pt does not have an appropriate home exercise program Short Term Goal (STG) Pt to be independent and compliant with an appropriate HEP STG Duration Met Assessment Summary Assessment Pt is increasing her activity on the [employer] at the gym, going for 22 minutes today, really greatly increasing her activity tolerance. Physical Therapy Plan Frequency and Duration Frequency of Treatment 2x/Week Duration of Treatment Two months Plan of Care Start Date 05/02/21 Plan of Care End Date 07/02/21 Therapeutic Interventions Therapeutic Interventions Balance Training,Coordination Training,Home Exercise Program ,Neuromuscular Re-education, Patient/Caregiver Education, Self-Care/Home Management,Soft Tissue Mobilization, Therapeutic Activities, Therapeutic Exercises Next Visit Focus/Plan Next Note Type Treatment Note Next Visit Plan Balance training, TUG, LE strengthening
--- NOTE | 2021-06-21 10:30 | PT.OTN ---
Current Diagnoses Unspecified abnormalities of gait and mobility (06/21/21) History of falling (06/21/21) Physical Therapy Treatment Note PT-OP-A Visit Information Start: 05/02/21 11:17 Freq: Status: Active Protocol: Document 06/21/21 09:45 DCW (Rec: 06/21/21 10:30 DCW [id number]) Out-Patient Physical Therapy Visit Information Visit Information Visit Type Treatment Note Visit Start Time 09:45 Visit Stop Time 10:30 Total Visit Minutes 45 Visit Number 12 Number of FIREMAN Visits 0 Evaluation Information Evaluation Date 05/02/21 PT-OP-B Current Condition Start: 05/02/21 11:17 Freq: Status: Active Protocol: Document 05/02/21 09:45 DCW (Rec: 05/02/21 11:34 DCW [id number]) Current Condition History of Current Condition Onset Date ~One year Current Complaints Worsening balance/stability History of Current Condition Pt is an 85 year old female presenting to skilled therapy with complaint of worsening balance and stabililty. Pt reports a fall 2-3 weeks ago where she was in her bedroom, turned quickly, lost her balance, lunged for the bed, missed, and ended up on the floor. Pt reports her left leg was quite bruised. Pt was also shocked that she was unable to get herself up, and needed her daughter to bring over a hard dining room chair for support. Pt reports she usually lives in an independent usp community in [place], and does a lot of walking around the very large building, up to two miles a day. Unfortunately, for the last 16 months, she has been living here in [place] with her daughter, who was diagnosed with cancer and has been undergoing intensive chemo. Because of this, pt has been much less active than usual. Notes she uses a 4WW when out in the community, but just uses a wayne when at home. Pt does note that she has had spinal problems all her life, starting when she was about 32 . Has a history of 2 compression fractures, treated with vertoplasty, which are now 100% better. Notes she also has a history on Meniere' s disease, however has not had an episode in 20+ years. Treatment Goals Patient/Caregiver Goals Improve balance, decrease fear of falling PT-OP-C Subjective Start: 05/02/21 11:17 Freq: Status: Active Protocol: Document 06/21/21 09:45 DCW (Rec: 06/21/21 10:30 DCW [id number]) OP-PT Subjective Patient Comments Patient Comments Pt doing well today, was able to get out and exercise at the gym yesterday. PT-OP-D Balance Start: 05/02/21 11:17 Freq: Status: Active Protocol: Document 05/02/21 09:45 DCW (Rec: 05/02/21 11:34 DCW [id number]) OP-PT Balance Assessment Sitting Balance Static Sitting Balance Ability Normal Standing Balance Static Standing Balance Ability Good Dynamic Standing Balance Ability Fair Device Used None Balance Tests De La Fuente Balance Test De La Fuente Balance Test Score 47/56 De La Fuente Impairment Rating 1 to 19% Impaired (Score 45-55 ) De La Fuente Balance Assessment Evaluation Sitting to Standing Ability Independent w/out Hands Unsupported Stance Safely- 2 minutes Sitting Unsupported, Feet on Floor Safely- 2 minutes Standing to Sitting Ability Safely, Minimal Hand Use Transfer Ability Safely, Minimal Hand Use Unsupported Stance- Eyes Closed Supervision, 10 seconds Unsupported Stance- Eyes Open Independent, 1 minute Reaching Forward Standing Safely, 5 inches Pick- Up Object From Floor Supervision Look Behind Shoulder - Standing Shifts Weight Well Turning 360 Degrees Turns slowly, but safely Unsupported Stance, Alternating Feet on (I)- 8 Steps in > 20 secs Stair Unsupported Tandem Stance Holds Tandem- 30 seconds Unilateral Leg Stance Lifts Leg/Holds > 3 secs Total Score De La Fuente Total Score (out of 56 points) 47 De La Fuente Impairment Rating 1 to 19% Impaired (Score 45-55 ) Vazquez Fall Scale Copyright Permission PT-OP-E Functional Tests Start: 05/02/21 11:17 Freq: Status: Active Protocol: Document 05/04/21 09:02 DCW (Rec: 05/04/21 10:33 DCW [id number]) Functional Tests Timed Up and Go (TUG) Score 14.68 Comments 3-trial average (15.24, 14.57, 14.23) TUG Impairment Rating 40 to <60% Impaired (Score 14- 15) PT-OP-M Strength Start: 05/02/21 11:34 Freq: Status: Active Protocol: Document 05/02/21 09:45 DCW (Rec: 05/02/21 11:49 DCW [id number]) Hip Strength Hip Manual Muscle Testing Right Flexion (L2) 4- Good- Extension (S1) 4 Good Abduction 3 Fair Adduction 3 Fair Left Flexion (L2) 4- Good- Extension (S1) 4 Good Abduction 3 Fair Adduction 3 Fair Knee Strength Knee Manual Muscle Testing Right Flexion (S2) 4- Good- Extension (L3) 4 Good Left Flexion (S2) 4- Good- Extension (L3) 4 Good Ankle/Foot Strength Ankle and Foot Manual Muscle Testing Right Dorsiflexion (L4) 4 Good Plantarflexion (S1) 4- Good- Left Dorsiflexion (L4) 4 Good Plantarflexion (S1) 4- Good- PT-OP-Q Treatments Start: 05/02/21 11:17 Freq: Status: Active Protocol: Document 06/21/21 09:45 DCW (Rec: 06/21/21 10:30 DCW [id number]) Cardio Equipment Recumbent Elliptical (BiodPEAK-IT) Duration (Minutes) 6 Resistance 7->8 Seat Position 6 Gym Equipment Shuttle Balance Red Details WBOS (EO/EC), Staggered, Lat weight shift Therapeutic Exercises Sitting Exercises 1 Sitting Exercise Name 4-way ankle flexion Side bilateral Resistance Lv 3 Other Exercises 1 Other Exercise Name Resisted Abduction Resistance Green Equipment Used T-band Comments Side-stepping Neuro Re-Education Treatment Balance Activities 8 Details SLS Surface Blue Foam 7 Details Hurdles Comments Fwd, Lateral 6 Details Tandem Stance 5 Details Tandem Ambulation Equipment // bars PT-OP-T Assessment and Plan Start: 05/02/21 11:17 Freq: Status: Active Protocol: Document 06/21/21 09:45 DCW (Rec: 06/21/21 10:30 DCW [id number]) Physical Therapy Assessment Impairments Impairments Balance,Functional Activities, Functional Mobility,Gait, Strength Goals Three Impairment Pt presents as a falls risk, per DGI score of 15/24 Detention Goal (LTG) Pt to increase DGI score at least 5 points to 20/24 to demonstrate decreased falls risk. LTG Duration 07/02/21 - Improving Two Impairment Pt displays decreased LE weakness bilaterally Structural Steel Detailer Goal (LTG) Pt to increase bilateral hip abduction/adduction to at least 4-/5 to improve stability of pelvis during gait LTG Duration 07/02/21- Improving One Impairment Pt does not have an appropriate home exercise program Short Term Goal (STG) Pt to be independent and compliant with an appropriate HEP STG Duration Met Assessment Summary Assessment Pt continuing to progress with balance, will likely be reducing frequency following her next appointment Physical Therapy Plan Frequency and Duration Frequency of Treatment 2x/Week Duration of Treatment Two months Plan of Care Start Date 05/02/21 Plan of Care End Date 07/02/21 Therapeutic Interventions Therapeutic Interventions Balance Training,Coordination Training,Home Exercise Program ,Neuromuscular Re-education, Patient/Caregiver Education, Self-Care/Home Management,Soft Tissue Mobilization, Therapeutic Activities, Therapeutic Exercises Next Visit Focus/Plan Next Note Type Progress Note Next Visit Plan Balance training, TUG, LE strengthening
--- NOTE | 2021-06-25 11:22 | PT.OTN ---
Current Diagnoses Unspecified abnormalities of gait and mobility (06/25/21) History of falling (06/25/21) Physical Therapy Treatment Note PT-OP-A Visit Information Start: 05/02/21 11:17 Freq: Status: Active Protocol: Document 06/25/21 10:30 DCW (Rec: 06/25/21 11:21 DCW [id number]) Out-Patient Physical Therapy Visit Information Visit Information Visit Type Progress Note Visit Start Time 10:30 Visit Stop Time 11:15 Total Visit Minutes 45 Visit Number 13 Number of TEXTURE ARTIST Visits 0 Evaluation Information Evaluation Date 05/02/21 PT-OP-B Current Condition Start: 05/02/21 11:17 Freq: Status: Active Protocol: Document 05/02/21 09:45 DCW (Rec: 05/02/21 11:34 DCW [id number]) Current Condition History of Current Condition Onset Date ~One year Current Complaints Worsening balance/stability History of Current Condition Pt is an 85 year old female presenting to skilled therapy with complaint of worsening balance and stabililty. Pt reports a fall 2-3 weeks ago where she was in her bedroom, turned quickly, lost her balance, lunged for the bed, missed, and ended up on the floor. Pt reports her left leg was quite bruised. Pt was also shocked that she was unable to get herself up, and needed her daughter to bring over a hard dining room chair for support. Pt reports she usually lives in an independent residential community in [place], and does a lot of walking around the very large building, up to two miles a day. Unfortunately, for the last 16 months, she has been living here in [place] with her daughter, who was diagnosed with cancer and has been undergoing intensive chemo. Because of this, pt has been much less active than usual. Notes she uses a 4WW when out in the community, but just uses a wayne when at home. Pt does note that she has had spinal problems all her life, starting when she was about 32 . Has a history of 2 compression fractures, treated with vertoplasty, which are now 100% better. Notes she also has a history on Meniere' s disease, however has not had an episode in 20+ years. Treatment Goals Patient/Caregiver Goals Improve balance, decrease fear of falling PT-OP-C Subjective Start: 05/02/21 11:17 Freq: Status: Active Protocol: Document 06/25/21 10:30 DCW (Rec: 06/25/21 11:21 DCW [id number]) OP-PT Subjective Patient Comments Patient Comments Pt very happy with her current progress PT-OP-D Balance Start: 05/02/21 11:17 Freq: Status: Active Protocol: Document 06/25/21 10:30 DCW (Rec: 06/25/21 11:07 DCW [id number]) Balance Tests De La Fuente Balance Test De La Fuente Balance Test Score 52/56 De La Fuente Impairment Rating 1 to 19% Impaired (Score 45-55 ) De La Fuente Balance Assessment Evaluation Sitting to Standing Ability Independent w/out Hands Unsupported Stance Safely- 2 minutes Sitting Unsupported, Feet on Floor Safely- 2 minutes Standing to Sitting Ability Safely, Minimal Hand Use Transfer Ability Safely, Minimal Hand Use Unsupported Stance- Eyes Closed Safely, 10 seconds Unsupported Stance- Eyes Open Independent, 1 minute Reaching Forward Standing Confidently, 10 inches Pick- Up Object From Floor Independent/Safe Look Behind Shoulder - Standing Shifts Weight Well Turning 360 Degrees Turns , < 4 secs Unsupported Stance, Alternating Feet on (I)- 8 Steps in 20 secs Stair Unsupported Tandem Stance Holds Tandem- 30 seconds Unilateral Leg Stance Lifts Leg/Holds > 3 secs Total Score De La Fuente Total Score (out of 56 points) 52 De La Fuente Impairment Rating 1 to 19% Impaired (Score 45-55 ) PT-OP-E Functional Tests Start: 05/02/21 11:17 Freq: Status: Active Protocol: Document 06/25/21 10:30 DCW (Rec: 06/25/21 11:07 DCW [id number]) Functional Tests Dynamic Gait Index (DGI) Score 19/24 DGI Impairment Rating 20 to <40% Impaired (Score 15- 19) Timed Up and Go (TUG) Score 12.26 Comments 3-trial average (12.91, 12.10, 11.77) TUG Impairment Rating 40 to <60% Impaired (Score 14- 15) PT-OP-M Strength Start: 05/02/21 11:34 Freq: Status: Active Protocol: Document 06/25/21 10:30 DCW (Rec: 06/25/21 11:07 DCW [id number]) Hip Strength Hip Manual Muscle Testing Right Flexion (L2) 4+ Good+ Extension (S1) 4+ Good+ Abduction 4 Good Adduction 4 Good Left Flexion (L2) 4+ Good+ Extension (S1) 4+ Good+ Abduction 4 Good Adduction 4 Good Knee Strength Knee Manual Muscle Testing Right Flexion (S2) 4+ Good+ Extension (L3) 4 Good Left Flexion (S2) 4+ Good+ Extension (L3) 4+ Good+ Ankle/Foot Strength Ankle and Foot Manual Muscle Testing Right Dorsiflexion (L4) 4+ Good+ Plantarflexion (S1) 4 Good Left Dorsiflexion (L4) 4+ Good+ Plantarflexion (S1) 4 Good PT-OP-Q Treatments Start: 05/02/21 11:17 Freq: Status: Active Protocol: Document 06/25/21 10:30 DCW (Rec: 06/25/21 11:21 DCW [id number]) Neuro Re-Education Treatment Other Activities 1 Details Testing Comments De La Fuente, DGI, TUG, MMT PT-OP-T Assessment and Plan Start: 05/02/21 11:17 Freq: Status: Active Protocol: Document 06/25/21 10:30 DCW (Rec: 06/25/21 11:21 DCW [id number]) Physical Therapy Assessment Impairments Impairments Balance,Functional Activities, Functional Mobility,Gait, Strength Goals Three Impairment Pt presents as a falls risk, per DGI score of 15/24 Director Regulatory Affairs Goal (LTG) Pt to increase DGI score at least 5 points to 20/24 to demonstrate decreased falls risk. LTG Duration 08/07/21 - Improving () Two Impairment Pt displays decreased LE weakness bilaterally Longterm Goal (LTG) Pt to increase bilateral hip abduction/adduction to at least 4-/5 to improve stability of pelvis during gait LTG Duration Met One Impairment Pt does not have an appropriate home exercise program Short Term Goal (STG) Pt to be independent and compliant with an appropriate HEP STG Duration Met Assessment Summary Assessment Pt doing very well, has improved in all areas, TUG time improved nearly 2.5 seconds, DGI improved by 4 points, De La Fuente improved by 5 points. Pt happy with her current progress, motivated to perform HEP. Pt should return a few more times over the next 1-2 months in order to update HEP, and will then be discharged to independent program. Physical Therapy Plan Frequency and Duration Frequency of Treatment every other week Duration of Treatment Six weeks Plan of Care Start Date 06/25/21 Plan of Care End Date 08/07/21 Therapeutic Interventions Therapeutic Interventions Balance Training,Coordination Training,Home Exercise Program ,Neuromuscular Re-education, Patient/Caregiver Education, Self-Care/Home Management,Soft Tissue Mobilization, Therapeutic Activities, Therapeutic Exercises Next Visit Focus/Plan Next Note Type Treatment Note Next Visit Plan Advanced balance training
--- NOTE | 2021-06-25 11:22 | PT.OPPOC ---
Physical, Occupational & Speech Therapy At [facility] Current Diagnoses Unspecified abnormalities of gait and mobility (06/25/21) History of falling (06/25/21) Visit Care Team Role Provider Type Tamia Vázquez MD Attending Provider Non-Staff Family Provider Primary Care Provider Referring Provider Specialty: Internal Medicine Address: [address] [place] [address], [facility] Fax: Email: Plan Of Care PT-OP-T Assessment and Plan Start: 05/02/21 11:17 Freq: Status: Active Protocol: Document 06/25/21 10:30 DCW (Rec: 06/25/21 11:21 DCW [id number]) Physical Therapy Assessment Impairments Impairments Balance,Functional Activities, Functional Mobility,Gait, Strength Goals Three Impairment Pt presents as a falls risk, per DGI score of 1524 [facility] Goal (LTG) Pt to increase DGI score at least 5 points to 20 to demonstrate decreased falls risk. LTG Duration 08/07/21 - Improving () Two Impairment Pt displays decreased LE weakness bilaterally [facility] Goal (LTG) Pt to increase bilateral hip abduction/adduction to at least 4-/5 to improve stability of pelvis during gait LTG Duration Met One Impairment Pt does not have an appropriate home exercise program Short Term Goal (STG) Pt to be independent and compliant with an appropriate HEP STG Duration Met Assessment Summary Assessment Pt doing very well, has improved in all areas, TUG time improved nearly 2.5 seconds, DGI improved by 4 points, De La Fuente improved by 5 points. Pt happy with her current progress, motivated to perform HEP. Pt should return a few more times over the next 1-2 months in order to update HEP, and will then be discharged to independent program. Physical Therapy Plan Frequency and Duration Frequency of Treatment every other week Duration of Treatment Six weeks Plan of Care Start Date 06/25/21 Plan of Care End Date 08/07/21 Therapeutic Interventions Therapeutic Interventions Balance Training,Coordination Training,Home Exercise Program ,Neuromuscular Re-education, Patient/Caregiver Education, Self-Care/Home Management,Soft Tissue Mobilization, Therapeutic Activities, Therapeutic Exercises Next Visit Focus/Plan Next Note Type Treatment Note Next Visit Plan Advanced balance training Plan of Care Dates Plan of Care Start Date 06/25/21 Plan of Care End Date 08/07/21 Electronically Signed by: Roger Marcelino, PT 06/25/21 1122 Please Sign and Return: I have reviewed this Plan of Care and certify that the skilled therapy services above are required to meet the patient?s needs. Physician Signature Date Printed Name and Credentials Clinical Instructor Signature Printed Name and Credentials
--- NOTE | 2021-07-18 11:15 | PT.OTN ---
Current Diagnoses Unspecified abnormalities of gait and mobility (07/18/21) History of falling (07/18/21) Physical Therapy Treatment Note PT-OP-A Visit Information Start: 05/02/21 11:17 Freq: Status: Active Protocol: Document 07/18/21 10:30 DCW (Rec: 07/18/21 11:15 DCW [id number]) Out-Patient Physical Therapy Visit Information Visit Information Visit Type Treatment Note Visit Start Time 10:30 Visit Stop Time 11:15 Total Visit Minutes 45 Visit Number 14 Number of HARDWOOD SAWYER Visits 0 Evaluation Information Evaluation Date 05/02/21 PT-OP-B Current Condition Start: 05/02/21 11:17 Freq: Status: Active Protocol: Document 05/02/21 09:45 DCW (Rec: 05/02/21 11:34 DCW [id number]) Current Condition History of Current Condition Onset Date ~One year Current Complaints Worsening balance/stability History of Current Condition Pt is an 85 year old female presenting to skilled therapy with complaint of worsening balance and stabililty. Pt reports a fall 2-3 weeks ago where she was in her bedroom, turned quickly, lost her balance, lunged for the bed, missed, and ended up on the floor. Pt reports her left leg was quite bruised. Pt was also shocked that she was unable to get herself up, and needed her daughter to bring over a hard dining room chair for support. Pt reports she usually lives in an independent [facility] community in [place], and does a lot of walking around the very large building, up to two miles a day. Unfortunately, for the last 16 months, she has been living here in [place] with her daughter, who was diagnosed with cancer and has been undergoing intensive chemo. Because of this, pt has been much less active than usual. Notes she uses a 4WW when out in the community, but just uses a wayne when at home. Pt does note that she has had spinal problems all her life, starting when she was about 32 . Has a history of 2 compression fractures, treated with vertoplasty, which are now 100% better. Notes she also has a history on Meniere' s disease, however has not had an episode in 20+ years. Treatment Goals Patient/Caregiver Goals Improve balance, decrease fear of falling PT-OP-C Subjective Start: 05/02/21 11:17 Freq: Status: Active Protocol: Document 07/18/21 10:30 DCW (Rec: 07/18/21 11:15 DCW [id number]) OP-PT Subjective Patient Comments Patient Comments I have been fine, I've been going to the gym regularly. PT-OP-D Balance Start: 05/02/21 11:17 Freq: Status: Active Protocol: Document 06/25/21 10:30 DCW (Rec: 06/25/21 11:07 DCW [id number]) Balance Tests De La Fuente Balance Test De La Fuente Balance Test Score 52/56 De La Fuente Impairment Rating 1 to 19% Impaired (Score 45-55 ) De La Fuente Balance Assessment Evaluation Sitting to Standing Ability Independent w/out Hands Unsupported Stance Safely- 2 minutes Sitting Unsupported, Feet on Floor Safely- 2 minutes Standing to Sitting Ability Safely, Minimal Hand Use Transfer Ability Safely, Minimal Hand Use Unsupported Stance- Eyes Closed Safely, 10 seconds Unsupported Stance- Eyes Open Independent, 1 minute Reaching Forward Standing Confidently, 10 inches Pick- Up Object From Floor Independent/Safe Look Behind Shoulder - Standing Shifts Weight Well Turning 360 Degrees Turns , < 4 secs Unsupported Stance, Alternating Feet on (I)- 8 Steps in 20 secs Stair Unsupported Tandem Stance Holds Tandem- 30 seconds Unilateral Leg Stance Lifts Leg/Holds > 3 secs Total Score De La Fuente Total Score (out of 56 points) 52 De La Fuente Impairment Rating 1 to 19% Impaired (Score 45-55 ) PT-OP-E Functional Tests Start: 05/02/21 11:17 Freq: Status: Active Protocol: Document 06/25/21 10:30 DCW (Rec: 06/25/21 11:07 DCW [id number]) Functional Tests Dynamic Gait Index (DGI) Score 19/24 DGI Impairment Rating 20 to <40% Impaired (Score 15- 19) Timed Up and Go (TUG) Score 12.26 Comments 3-trial average (12.91, 12.10, 11.77) TUG Impairment Rating 40 to <60% Impaired (Score 14- 15) PT-OP-M Strength Start: 05/02/21 11:34 Freq: Status: Active Protocol: Document 06/25/21 10:30 DCW (Rec: 06/25/21 11:07 DCW [id number]) Hip Strength Hip Manual Muscle Testing Right Flexion (L2) 4+ Good+ Extension (S1) 4+ Good+ Abduction 4 Good Adduction 4 Good Left Flexion (L2) 4+ Good+ Extension (S1) 4+ Good+ Abduction 4 Good Adduction 4 Good Knee Strength Knee Manual Muscle Testing Right Flexion (S2) 4+ Good+ Extension (L3) 4 Good Left Flexion (S2) 4+ Good+ Extension (L3) 4+ Good+ Ankle/Foot Strength Ankle and Foot Manual Muscle Testing Right Dorsiflexion (L4) 4+ Good+ Plantarflexion (S1) 4 Good Left Dorsiflexion (L4) 4+ Good+ Plantarflexion (S1) 4 Good PT-OP-Q Treatments Start: 05/02/21 11:17 Freq: Status: Active Protocol: Document 07/18/21 10:30 DCW (Rec: 07/18/21 11:15 DCW [id number]) Gym Equipment Shuttle Rebound 1 Exercise Details Trampoline bounce Shuttle Balance Red Details WBOS (EO/EC), Staggered, Lat weight shift Sport Cord Blue Exercise Details Side-stepping Neuro Re-Education Treatment Balance Activities 8 Details SLS 5 Details Tandem Ambulation Equipment // bars 4 Details BOSU stance Comments EO/EC PT-OP-T Assessment and Plan Start: 05/02/21 11:17 Freq: Status: Active Protocol: Document 07/18/21 10:30 DCW (Rec: 07/18/21 11:15 DCW [id number]) Physical Therapy Assessment Impairments Impairments Balance,Functional Activities, Functional Mobility,Gait, Strength Goals Three Impairment Pt presents as a falls risk, per DGI score of 15/24 Shelter Goal (LTG) Pt to increase DGI score at least 5 points to 20/24 to demonstrate decreased falls risk. LTG Duration 08/07/21 - Improving () Two Impairment Pt displays decreased LE weakness bilaterally Gum Machine Filler Goal (LTG) Pt to increase bilateral hip abduction/adduction to at least 4-/5 to improve stability of pelvis during gait LTG Duration Met One Impairment Pt does not have an appropriate home exercise program Short Term Goal (STG) Pt to be independent and compliant with an appropriate HEP STG Duration Met Assessment Summary Assessment Pt did well today, is looking forward to discharging to independent HEP. Would like a comprehensive exercise sheet at her next appointment prior to discharge. Physical Therapy Plan Frequency and Duration Frequency of Treatment every other week Duration of Treatment Six weeks Plan of Care Start Date 06/25/21 Plan of Care End Date 08/07/21 Therapeutic Interventions Therapeutic Interventions Balance Training,Coordination Training,Home Exercise Program ,Neuromuscular Re-education, Patient/Caregiver Education, Self-Care/Home Management,Soft Tissue Mobilization, Therapeutic Activities, Therapeutic Exercises Next Visit Focus/Plan Next Note Type Treatment Note Next Visit Plan Advanced balance training, HEP
--- NOTE | 2021-08-07 11:57 | PT.OTN ---
Current Diagnoses Unspecified abnormalities of gait and mobility (08/07/21) History of falling (08/07/21) Physical Therapy Treatment Note PT-OP-A Visit Information Start: 05/02/21 11:17 Freq: Status: Active Protocol: Document 08/07/21 11:15 DCW (Rec: 08/07/21 11:57 DCW [id number]) Out-Patient Physical Therapy Visit Information Visit Information Visit Type Treatment Note Visit Start Time 11:15 Visit Stop Time 12:00 Total Visit Minutes 45 Visit Number 15 Number of COMPETENCY EVALUATED NURSE AIDE Visits 0 Evaluation Information Evaluation Date 05/02/21 PT-OP-B Current Condition Start: 05/02/21 11:17 Freq: Status: Active Protocol: Document 05/02/21 09:45 DCW (Rec: 05/02/21 11:34 DCW [id number]) Current Condition History of Current Condition Onset Date ~One year Current Complaints Worsening balance/stability History of Current Condition Pt is an 85 year old female presenting to skilled therapy with complaint of worsening balance and stabililty. Pt reports a fall 2-3 weeks ago where she was in her bedroom, turned quickly, lost her balance, lunged for the bed, missed, and ended up on the floor. Pt reports her left leg was quite bruised. Pt was also shocked that she was unable to get herself up, and needed her daughter to bring over a hard dining room chair for support. Pt reports she usually lives in an independent fpc community in [place], and does a lot of walking around the very large building, up to two miles a day. Unfortunately, for the last 16 months, she has been living here in [place] with her daughter, who was diagnosed with cancer and has been undergoing intensive chemo. Because of this, pt has been much less active than usual. Notes she uses a 4WW when out in the community, but just uses a wayne when at home. Pt does note that she has had spinal problems all her life, starting when she was about 32 . Has a history of 2 compression fractures, treated with vertoplasty, which are now 100% better. Notes she also has a history on Meniere' s disease, however has not had an episode in 20+ years. Treatment Goals Patient/Caregiver Goals Improve balance, decrease fear of falling PT-OP-C Subjective Start: 05/02/21 11:17 Freq: Status: Active Protocol: Document 08/07/21 11:15 DCW (Rec: 08/07/21 11:57 DCW [id number]) OP-PT Subjective Patient Comments Patient Comments Pt notes everything has been going well, I'm just sort of maintaining. PT-OP-D Balance Start: 05/02/21 11:17 Freq: Status: Active Protocol: Document 06/25/21 10:30 DCW (Rec: 06/25/21 11:07 DCW [id number]) Balance Tests De [place] Fuente Balance Test [place] Fuente Balance Test Score 52/56 [place] Impairment Rating 1 to 19% Impaired (Score 45-55 ) [place]ente Balance Assessment Evaluation Sitting to Standing Ability Independent w/out Hands Unsupported Stance Safely- 2 minutes Sitting Unsupported, Feet on Floor Safely- 2 minutes Standing to Sitting Ability Safely, Minimal Hand Use Transfer Ability Safely, Minimal Hand Use Unsupported Stance- Eyes Closed Safely, 10 seconds Unsupported Stance- Eyes Open Independent, 1 minute Reaching Forward Standing Confidently, 10 inches Pick- Up Object From Floor Independent/Safe Look Behind Shoulder - Standing Shifts Weight Well Turning 360 Degrees Turns , < 4 secs Unsupported Stance, Alternating Feet on (I)- 8 Steps in 20 secs Stair Unsupported Tandem Stance Holds Tandem- 30 seconds Unilateral Leg Stance Lifts Leg/Holds > 3 secs Total Score [place] Total Score (out of 56 points) 52 [place] Impairment Rating 1 to 19% Impaired (Score 45-55 ) PT-OP-E Functional Tests Start: 05/02/21 11:17 Freq: Status: Active Protocol: Document 06/25/21 10:30 DCW (Rec: 06/25/21 11:07 DCW [id number]) Functional Tests Dynamic Gait Index (DGI) Score 19/24 DGI Impairment Rating 20 to <40% Impaired (Score 15- 19) Timed Up and Go (TUG) Score 12.26 Comments 3-trial average (12.91, 12.10, 11.77) TUG Impairment Rating 40 to <60% Impaired (Score 14- 15) PT-OP-M Strength Start: 05/02/21 11:34 Freq: Status: Active Protocol: Document 06/25/21 10:30 DCW (Rec: 06/25/21 11:07 DCW [id number]) Hip Strength Hip Manual Muscle Testing Right Flexion (L2) 4+ Good+ Extension (S1) 4+ Good+ Abduction 4 Good Adduction 4 Good Left Flexion (L2) 4+ Good+ Extension (S1) 4+ Good+ Abduction 4 Good Adduction 4 Good Knee Strength Knee Manual Muscle Testing Right Flexion (S2) 4+ Good+ Extension (L3) 4 Good Left Flexion (S2) 4+ Good+ Extension (L3) 4+ Good+ Ankle/Foot Strength Ankle and Foot Manual Muscle Testing Right Dorsiflexion (L4) 4+ Good+ Plantarflexion (S1) 4 Good Left Dorsiflexion (L4) 4+ Good+ Plantarflexion (S1) 4 Good PT-OP-Q Treatments Start: 05/02/21 11:17 Freq: Status: Active Protocol: Document 08/07/21 11:15 DCW (Rec: 08/07/21 11:57 DCW [id number]) Gym Equipment Shuttle Balance Red Details WBOS (EO/EC), Staggered, Lat weight shift Sport Cord Blue Exercise Details Hurdles Comments Fwd, Bkwd, Side-stepping Neuro Re-Education Treatment Balance Activities 8 Details SLS Comments Cross-body reaching 6 Details Tandem Stance 5 Details Tandem Ambulation Equipment // bars 4 Details BOSU stance Comments EO/EC 1 Details Foam stance Surface Kurtz foam Comments SLS PT-OP-T Assessment and Plan Start: 05/02/21 11:17 Freq: Status: Active Protocol: Document 08/07/21 11:15 DCW (Rec: 08/07/21 11:57 DCW [id number]) Physical Therapy Assessment Impairments Impairments Balance,Functional Activities, Functional Mobility,Gait, Strength Goals Three Impairment Pt presents as a falls risk, per DGI score of 15/24 [place] Goal (LTG) Pt to increase DGI score at least 5 points to 20/24 to demonstrate decreased falls risk. LTG Duration 08/07/21 - Improving () Two Impairment Pt displays decreased LE weakness bilaterally [place] Goal (LTG) Pt to increase bilateral hip abduction/adduction to at least 4-/5 to improve stability of pelvis during gait LTG Duration Met One Impairment Pt does not have an appropriate home exercise program Short Term Goal (STG) Pt to be independent and compliant with an appropriate HEP STG Duration Met Assessment Summary Assessment Pt has met nearly all goals, is comfortable with her current level of function and her HEP. Appropriate to discharge at this time. Physical Therapy Plan Frequency and Duration Frequency of Treatment every other week Duration of Treatment Six weeks Plan of Care Start Date 06/25/21 Plan of Care End Date 08/07/21 Therapeutic Interventions Therapeutic Interventions Balance Training,Coordination Training,Home Exercise Program ,Neuromuscular Re-education, Patient/Caregiver Education, Self-Care/Home Management,Soft Tissue Mobilization, Therapeutic Activities, Therapeutic Exercises Discharge Physical Therapy Discharge Reasons Goals Met Next Visit Focus/Plan Next Note Type Discharge Summary
== END 2021-09-04 08:39 ==
LOC: PHYS 11:15
PROVIDERS: Family Provider Internal Medicine; PCP Internal Medicine; Referring Provider Internal Medicine; Visit Provider Internal Medicine
DX: R26.9 Unspecified abnormalities of gait and mobility (principal); Z91.81 History of falling
CPT/HCPCS: 97110; 97112; 97140; 97161

== ENCOUNTER 2023-05-07 14:40 | Observation (INO) | payer MEDICARE, SELFPAY ==
[2023-05-07] VITALS (31 sets, daily range): BP systolic 140–183; BP diastolic 67–98; PULSE 54–87; RESP 13–23; TEMP 36.6; O2SAT 97–100; BMI 23.4
[2023-05-07 17:35] LABS: RBC Urine 0-1/HPF (0-5/HPF)
[2023-05-07 17:36] LABS: Bacteria Urine Few (2-10); Culture Indicated Urine Specimen Cultured; Squamous Epithelial Cell Urine 5-10 /HPF (0-5/HPF); Transitional Epi Cells Urine 5-10/HPF (0-5/HPF); WBC Urine 10-30/HPF (0-5/HPF)
--- NOTE | 2023-05-07 17:52 | PC.NURSE ---
Pt 99% RA when she is awake however pt de-sats when she sleeps due to sleep apnea. Pt placed on 2L to supplement oxygen while pt sleeps.
--- NOTE | 2023-05-07 17:57 | PC.NURSE ---
Pt states she lives in [place], she is visiting her daughter in [place]. Pt sees wound care at [facility] regularly for lower extremity wound on L-leg. Pt fell today at daughters home. States she did her best to pull up the skin tear on R-knee, states she thinks she noticed bone under the tear.
--- NOTE | 2023-05-07 18:02 | DI.RAD.S_ITS ---
PROCEDURE: XR KNEE RT 3V INDICATIONS: r/o fx TECHNIQUE: 3 views of the knee were acquired. COMPARISON: None. FINDINGS: Bones: No acute fractures or dislocations. No suspicious bony lesions. Severe joint space narrowing is seen in the patellofemoral compartment. Soft tissues: No joint effusion. Nonspecific prepatellar/pretibial edema. Chondrocalcinosis. IMPRESSION: 1. No acute osseous abnormality. If clinical suspicion and/or symptoms persist, additional imaging with repeat plain films, or advanced imaging (e.g. CT, MRI) may be helpful for further assessment. 2. Nonspecific prepatellar/pretibial subcutaneous edema. 3. Severe patellofemoral osteoarthrosis. 4. Chondrocalcinosis. Approved by: Ilya Angelo M.D. on 05/07/2023 at 18:56
--- NOTE | 2023-05-07 18:02 | ED.FALL ---
HPI - Fall General Chief Complaint: Fall Stated Complaint: Fall Time Seen by Provider: 05/07/23 18:02 Source: patient and EMS Mode of arrival: EMS History of Present Illness HPI Narrative: 87-year-old female nonsmoker with history of lymphocytic colitis, squamous cell carcinoma presents by EMS for evaluation of generalized weakness and injury suffered as a consequence of a fall. She states that she traveled here from [place] to help with her daughter who just had a large abdominal surgery. She admittedly has been more concerned about caring for her daughter than taking care of herself and has not been eating and drinking enough. She states that she was feeling dizzy, weak and lightheaded which resulted in a fall forward and she injured her right knee. She has a deep irregular laceration and some bleeding. She has felt generally unwell for a few days but denies any chest pain or shortness of breath. She is had some nausea but denies any vomiting. She denies abdominal pain or obvious urinary complaints. She has pain in her right knee with palpation and attempts at ambulation. She did not strike her head and has no neck or back pain. She thinks she has likely been taking her medications as directed. She lives at home alone and has no social support. She had most recently been admitted at [facility] in the beginning of March for acute kidney injury and dehydration thought related to her lymphocytic colitis. Related Data Home Medications Medication Instructions Recorded Confirmed allopurinol 300 mg tablet 300 mg PO DAILY gout pain 05/07/23 05/07/23 budesonide 3 mg 900 mg PO QAM 05/07/23 05/07/23 capsule,delayed,extended release Allergies Allergy/AdvReac Type Severity Reaction Status Date / Time No Known Drug Allergies Allergy Verified 05/07/23 14:50 Review of Systems Review of Systems Narrative: GENERAL: See HPI. HEENT: Denies sinus pain, ear pain, sore throat, difficulty swallowing, dizziness. RESPIRATORY: Denies dyspnea, cough, wheezing, hemoptysis, sputum. CARDIOVASCULAR: Denies chest pain, palpitations, orthopnea, edema, GASTROINTESTINAL: See HPI : See HPI MUSCULOSKELETAL: See HPI SKIN: Denies rash, skin lesions, or other NEUROLOGIC: Denies weakness, headache, numbness, change in speech, confusion, seizures, incoordination. PSYCHIATRIC: No concerning psychosocial issues. 12 point review of systems is negative except for those stated above Patient History Social History Smoking Status: Unknown if ever smoked Smoking Status: Unknown if ever smoked alcohol intake frequency: holidays/special occasions only Substance Use Type: does not use Exam Narrative Exam Narrative: GENERAL: [87] year old patient appears stated age. Frail and elderly, in moderate distress, GCS 15 HEAD: Atraumatic. Normocephalic. No abrasion, laceration, contusion or evidence injury EYES: Pupils equal round and reactive. Extraocular motions intact. No scleral icterus. No injection or drainage. ENT: Dry mucous membranes Nose without bleeding, purulent drainage. Throat without erythema, tonsillar hypertrophy or exudate. Airway patent. NECK: Trachea midline. Non tender CARDIOVASCULAR: Regular rate and rhythm without murmurs, gallops, or rubs. RESPIRATORY: Clear to auscultation. Breath sounds equal bilaterally. No wheezes, rales, or rhonchi. GASTROINTESTINAL: Abdomen soft, non-tender, nondistended. EXTREMITIES: Large irregular skin tear and laceration overlying the patella various flaps and skin tears measuring upwards of 16 cm, small portions with a depth sufficient to accept sutures. Right lower extremity BACK: Nontender without deformity or crepitance. No flank tenderness. NEURO: AOx3. SKIN: No rash or erythema of visible areas Initial Vital Signs Initial Vital Signs: Vital Signs Temperature 97.8 F 05/07/23 14:40 Pulse Rate 75 05/07/23 14:40 Respiratory Rate 14 05/07/23 14:40 Blood Pressure 155/80 H 05/07/23 14:40 Pulse Oximetry 97 05/07/23 14:40 Oxygen Delivery Method Room Air 05/07/23 14:40 Procedures Laceration Repair Laceration 1: Site: lower extremity Side (If applicable): right Size (cm): 16 Description: flap and irregular Depth: simple, single layer Local Anesthetic: lidocaine 1% Amount of anesthesia used (mL): 6 Pre-repair: wound explored and cleansed with chlorhexadine Skin layer closed with: nylon Skin layer suture size: 5-0 Number of sutures: 9 Technique: simple, interrupted Course Orders Ordered: ED Orders 05/07/23 17:04 Urine Culture Stat Urine Microscopic Stat 05/07/23 18:02 XR knee RT 3V Stat 05/07/23 18:03 XR elbow LT min 3V Stat 05/07/23 18:33 EKG-12 Lead Stat 05/07/23 19:15 Complete Blood Count AUTO DIFF Stat Comprehensive Metabolic Panel Stat Magnesium Stat Troponin & CK Cardiac Panel Stat Acetaminophen (Acetaminophen 325 Mg Tablet) 650 mg PO Q6H PRN PRN Reason: Fever/Mild Pain (1-3) Hydrocodone Bitart/Acetaminophen (Hydrocodone/Acet 5/325 Tablet) 1 tab PO Q4H PRN PRN Reason: Pain, Moderate (4-6) Hydrocodone Bitart/Acetaminophen (Hydrocodone/Acet 5/325 Tablet) 2 tab PO Q4H PRN PRN Reason: Pain, Severe (7-10) Gabapentin (Gabapentin 600 Mg Tablet) 600 mg PO BID [facility] Last Admin: 05/07/23 23:09 Dose: 600 mg Documented By: NELSY POTASSIUM CHLORIDE IN WATER (Potassium Cl 10 Meq/100 Ml Kay) 10 meq in 100 mls @ 100 mls/hr IV Q1H OLINDA Stop: 05/08/23 00:14 Last Admin: 05/07/23 22:43 Dose: Not Given Documented By: Admin: 05/07/23 22:43 Dose: Not Given Documented By: Admin: 05/07/23 21:49 Dose: Not Given Documented By: Infusion: 05/07/23 21:29 Dose: Infused Documented By: Infusion: 05/07/23 21:15 Dose: 85 mls/hr Documented By: Admin: 05/07/23 20:40 Dose: 100 mls/hr Documented By: NELSY Ceftriaxone Sodium 1,000 mg/ (Sodium Chloride) 100 mls @ 200 mls/hr IV Q24H [facility] Ibuprofen (Ibuprofen 400 Mg Tablet) 400 mg PO Q4H PRN PRN Reason: Pain, Mild (1-3) Naloxone HCl (Naloxone 0.4 Mg/Ml Vial) 0.2 mg IV Q2MIN PRN PRN Reason: Opiate Reversal Ondansetron HCl (Ondansetron 4 Mg Odt) 4 mg PO Q8HR PRN PRN Reason: Nausea And Vomiting Discontinued Medications Sodium Chloride (Normal Saline 0.9%) 1,000 mls @ 1,000 mls/hr IV BOLUS ONE Stop: 05/07/23 19:31 Last Infusion: 05/07/23 20:22 Dose: Infused Documented By: Admin: 05/07/23 19:00 Dose: 1,000 mls/hr Documented By: EULALIA Ceftriaxone Sodium 1,000 mg/ (Sodium Chloride) 100 mls @ 200 mls/hr IV NOW ONE Stop: 05/07/23 19:41 Last Infusion: 05/07/23 21:02 Dose: Infused Documented By: Admin: 05/07/23 20:25 Dose: 200 mls/hr Documented By: NELSY Sodium Chloride (Normal Saline 0.9%) 500 mls @ 1,000 mls/hr IV BOLUS ONE Stop: 05/07/23 23:18 Last Infusion: 05/07/23 23:32 Dose: Infused Documented By: Admin: 05/07/23 22:58 Dose: 1,000 mls/hr Documented By: NELSY Ibuprofen (Ibuprofen 400 Mg Tablet) 400 mg PO NOW ONE Stop: 05/07/23 20:11 Last Admin: 05/07/23 20:26 Dose: 400 mg Documented By: NELSY Lidocaine HCl (Lidocaine 1% 20 Ml) 20 ml INJ INTRA-OP ONE Stop: 05/07/23 19:45 Last Admin: 05/07/23 19:56 Dose: 20 ml Documented By: NELSY Potassium Chloride (Potassium Chloride 20 Meq/15 Ml Udc) 40 meq PO NOW ONE Stop: 05/07/23 20:11 Last Admin: 05/07/23 20:25 Dose: 40 meq Documented By: NELSY Vital Signs Vital signs: Vital Signs - 8 hr 05/07/23 16:56 05/07/23 16:57 05/07/23 16:57 Pulse Rate 74 76 Respiratory Rate Blood Pressure 164/84 H Pulse Oximetry 99 99 Oxygen Delivery Method Oxygen Flow Rate 05/07/23 17:00 05/07/23 17:00 05/07/23 17:20 Pulse Rate 83 Respiratory Rate Blood Pressure 171/98 H 158/85 H Pulse Oximetry 99 Oxygen Delivery Method Oxygen Flow Rate 05/07/23 17:20 05/07/23 17:30 05/07/23 17:40 Pulse Rate 81 62 Respiratory Rate Blood Pressure 140/67 Pulse Oximetry 100 98 Oxygen Delivery Method Oxygen Flow Rate 05/07/23 17:40 05/07/23 18:00 05/07/23 18:00 Pulse Rate 60 57 L Respiratory Rate Blood Pressure 149/72 H Pulse Oximetry 98 100 Oxygen Delivery Method Oxygen Flow Rate 05/07/23 18:20 05/07/23 18:20 05/07/23 18:30 Pulse Rate 61 79 Respiratory Rate Blood Pressure 156/78 H Pulse Oximetry 100 100 Oxygen Delivery Method Oxygen Flow Rate 05/07/23 19:00 05/07/23 19:22 05/07/23 19:22 Pulse Rate 61 67 Respiratory Rate Blood Pressure 166/82 H Pulse Oximetry 100 100 Oxygen Delivery Method Oxygen Flow Rate 05/07/23 19:30 05/07/23 19:40 05/07/23 19:40 Pulse Rate 69 71 Respiratory Rate Blood Pressure 177/88 H Pulse Oximetry 100 100 Oxygen Delivery Method Oxygen Flow Rate 05/07/23 20:00 05/07/23 20:00 05/07/23 20:21 Pulse Rate 60 Respiratory Rate 18 Blood Pressure 183/80 H 166/78 H Pulse Oximetry 100 Oxygen Delivery Method Oxygen Flow Rate 05/07/23 20:21 05/07/23 20:30 05/07/23 20:40 Pulse Rate 62 72 Respiratory Rate Blood Pressure 158/75 H Pulse Oximetry 100 100 Oxygen Delivery Method Nasal Cannula Nasal Cannula Oxygen Flow Rate 2 2 05/07/23 20:40 05/07/23 21:00 05/07/23 21:00 Pulse Rate 61 57 L Respiratory Rate Blood Pressure 158/69 H Pulse Oximetry 100 100 Oxygen Delivery Method Nasal Cannula Nasal Cannula Oxygen Flow Rate 2 2 05/07/23 21:20 05/07/23 21:20 05/07/23 21:30 Pulse Rate 60 87 Respiratory Rate 20 19 Blood Pressure 155/95 H Pulse Oximetry 100 100 Oxygen Delivery Method Nasal Cannula Oxygen Flow Rate 2 05/07/23 21:38 05/07/23 21:38 05/07/23 21:40 Pulse Rate 66 60 Respiratory Rate 20 18 Blood Pressure 168/73 H Pulse Oximetry 99 100 Oxygen Delivery Method Nasal Cannula Oxygen Flow Rate 2 05/07/23 21:40 05/07/23 21:59 05/07/23 22:00 Pulse Rate 56 L Respiratory Rate 19 Blood Pressure 150/69 H 146/72 H Pulse Oximetry 100 Oxygen Delivery Method Nasal Cannula Oxygen Flow Rate 2 05/07/23 22:00 05/07/23 22:21 05/07/23 22:21 Pulse Rate 55 L 57 L Respiratory Rate 19 17 Blood Pressure 166/77 H Pulse Oximetry 100 100 Oxygen Delivery Method Oxygen Flow Rate 05/07/23 22:30 05/07/23 22:40 05/07/23 22:40 Pulse Rate 54 L 58 L Respiratory Rate 13 15 Blood Pressure 171/80 H Pulse Oximetry 99 100 Oxygen Delivery Method Oxygen Flow Rate 05/07/23 23:00 05/07/23 23:01 05/07/23 23:01 Pulse Rate 60 60 Respiratory Rate 23 23 Blood Pressure 154/74 H Pulse Oximetry 100 100 Oxygen Delivery Method Oxygen Flow Rate MDM - Fall Lab Data 05/07/23 19:15 05/07/23 19:15 Labs: Lab Results 05/07/23 05/07/23 Range/Units 17:04 19:15 WBC 11.3 H (4.5-11.0) X10^3/uL RBC 3.53 L (4.0-5.2) X10^6/uL Hgb 12.3 (12.0-16.0) g/dL Hct 36.1 (36-46) % MCV 102.4 H (80-100) fL MCH 34.8 H (26-34) PG MCHC 34.0 (30-36) % RDW 16.4 H (11.6-14.8) % Plt Count 226 (150-400) X10^3/uL Neut % (Auto) 89.4 H (50-75) % Lymph % (Auto) 6.9 L (25-40) % [place] % (Auto) 3.5 (3-14) % Eos % (Auto) 0.0 L (2-4) % Baso % (Auto) 0.2 (0-2) % Neut # (Auto) 34562 H (9727-5206) /uL Lymph # (Auto) 800 L (4375-3235) /uL [place] # (Auto) 400 (0-900) /uL Eos # (Auto) 0 (0-450) /uL Baso # (Auto) 0 (0-100) /uL Sodium 137 (137-145) mmol/L Potassium 3.0 L (3.4-5.1) mmol/L Chloride 99 (98-107) mmol/L Carbon Dioxide 31 (22-32) mmol/L BUN 32 H (7-17) mg/dL Creatinine 1.00 (0.52-1.04) mg/dL Estimated GFR 55 L (>60) mL/min BUN/Creatinine Ratio 32.0 H (6-22) Glucose 100 (80-110) mg/dL Calcium 9.6 (8.4-10.2) mg/dL Magnesium 1.8 (1.6-2.3) mg/dL Total Bilirubin 0.9 (0.2-1.3) mg/dL AST 35 (14-36) IU/L ALT 28 (<35) IU/L Alkaline Phosphatase 121 (38-126) U/L Total Creatine Kinase 38 (30-135) U/L Troponin I < 0.012 (0.01-0.034) ng/mL Total Protein 6.5 (6.3-8.2) g/dL Albumin 3.6 (3.5-5.0) g/dL Globulin 2.9 (1.7-4.1) g/dL Albumin/Globulin Ratio 1.2 (1.0-2.8) Urine RBC 0-1/hpf (0-5/HPF) Urine WBC 10-30/hpf H (0-5/HPF) Ur Squamous Epith Cells 5-10 /hpf H (0-5/HPF) Ur Transition Epith Cell 5-10/hpf H (0-5/HPF) Urine Bacteria Few (2-10) H (None) Ur Culture Indicated? Specimen cultured Urine Dip Bedside Urine Glucose Negative Bedside Urine Bilirubin - Negative Bedside Urine Ketone - Negative Urine Specific Supai 1.005 Bedside Urine Occult Blood - Negative Bedside Urine pH 8.5 Bedside Urine Protein +/- 15 Bedside Urine Urobilinogen - Negative Bedside Urine Nitrite - Negative Bedside Urine Leukocytes +++ 500 Esterase MDM Narrative Medical decision making narrative: [87] year old patient presents with generalized weakness resulting in fall and right knee injury Multiple etiologies for patient's symptoms considered including, but not limited to: [Dehydration versus electrolyte abnormality versus infectious process versus other] Prior Charts reviewed in our EMR Primary Historian: patient Labs reviewed and interpreted by myself: Slight leukocytosis with relative left shift, no signs of anemia, potassium 3.0, creatinine 1.0, GFR 55 Imaging reviewed: Imaging of right elbow and knee without acute osseous abnormality Patient with fall secondary to weakness resulting in orthopedic injury with large skin tear laceration but thankfully no bony abnormality. Nine sutures placed in wound dressed. Patient's tetanus is current. She states that she fell due to generalized weakness and admits that she is not been taking care of herself and instead focusing on the care of her daughter. She is found to have a urinary tract infection and low potassium. She is given 1500mL saline, Potassium 40meq, Rocephin. Attempts to ambulate, but still quite weak, requiring multiple nurses to assist. Patient requires hospitalization for ongoing treatment of her clinical dehydration, hypokalemia, urinary tract infection Discharge Plan Departure Patient Disposition: Admitted as Observation Clinical Impression: Acute dehydration, Weakness, Acute UTI, Acute hypokalemia, Laceration of knee, right Admit Date/Time: 05/07/23 23:16 Admit Provider: Crispin Daniel
--- NOTE | 2023-05-07 18:03 | DI.RAD.S_ITS ---
PROCEDURE: XR ELBOW LT MIN 3V INDICATIONS: r/o fx TECHNIQUE: 3 views of the elbow were acquired. COMPARISON: None. FINDINGS: Bones: No acute fractures or dislocations. No suspicious bony lesions. Soft tissues: No elbow joint effusion. No suspicious soft tissue calcifications. IMPRESSION: No acute osseous abnormality. If clinical suspicion and/or symptoms persist, additional imaging with repeat plain films, or advanced imaging (e.g. CT, MRI) may be helpful for further assessment. Approved by: Ilya Angelo M.D. on 05/07/2023 at 18:54
[2023-05-07] MEDS: SODIUM CHLORIDE 0.9% 1,000 ML 1000 ML IV (19:00)
[2023-05-07 19:25] LABS: Add Manual Diff / Slide Review NO; Basophils Absolute Auto 0 /uL (0-100); Basophils Percent Auto 0.2 % (0-2); Eosinophils Absolute Auto 0 /uL (0-450); Hematocrit 36.1 % (36-46); Hemoglobin 12.3 g/dL (12.0-16.0); Lymphocytes Absolute Auto 800 /uL (1100-4500); Lymphocytes Percent Auto 6.9 % (25-40); Mean Corpuscular Hemoglobin 34.8 PG (26-34); Mean Corpuscular Volume 102.4 fL (80-100); Monocytes Absolute Auto 400 /uL (0-900); Monocytes Percent Auto 3.5 % (3-14); Neutrophils Absolute Auto 10100 /uL (1500-7000); Neutrophils Percent Auto 89.4 % (50-75); Platelet Count 226 X10^3/uL (150-400); Red Blood Cell Count 3.53 X10^6/uL (4.0-5.2); Red Cell Distribution Width 16.4 % (11.6-14.8); White Blood Cell Count 11.3 X10^3/uL (4.5-11.0)
[2023-05-07 19:53] LABS: Alanine Aminotransferase 28 IU/L (<35); Albumin 3.6 g/dL (3.5-5.0); Albumin Globulin Ratio 1.2 (1.0-2.8); Alkaline Phosphatase 121 U/L (38-126); Aspartate Aminotransferase 35 IU/L (14-36); Bilirubin Total 0.9 mg/dL (0.2-1.3); Blood Urea Nitrogen 32 mg/dL (7-17); Calcium 9.6 mg/dL (8.4-10.2); Carbon Dioxide 31 mmol/L (22-32); Chloride 99 mmol/L (98-107); Creatine Kinase 38 U/L (30-135); Estimated Glomerular Filt Rate 55 mL/min (>60); Globulin 2.9 g/dL (1.7-4.1); Glucose 100 mg/dL (80-110); HEMOLYSIS 21 (0-50); Magnesium 1.8 mg/dL (1.6-2.3); Sodium 137 mmol/L (137-145); Total Protein 6.5 g/dL (6.3-8.2)
[2023-05-07] MEDS: LIDOCAINE 1% 20 ML INJ (19:56)
[2023-05-07 20:02] LABS: Troponin I < 0.012 ng/mL (0.01-0.034)
[2023-05-07] MEDS: cefTRIAXone 1,000 MG in SODIUM CHLORIDE 0.9% 100 ML 200 MG IV (20:25)
[2023-05-07] MEDS: POTASSIUM CHLORIDE 20 MEQ/15 ML UDC 40 MEQ PO (20:25)
[2023-05-07] MEDS: IBUPROFEN 400 MG TABLET PO (20:26)
[2023-05-07] MEDS: POTASSIUM CHLORIDE IN WATER 10 MEQ/100 ML PIGGYBACK 100 MEQ IV (20:40)
--- NOTE | 2023-05-07 21:29 | PC.NURSE ---
Patient could not handle the potassium chloride IV infusion states it britt really bad. Lowered the rate, see MAR and carrier normal saline hung. OK per Dr. Contreras. patient still not tolerating, Dr. Contreras verbal order to stop infusion.
--- NOTE | 2023-05-07 21:41 | PC.NURSE ---
got pt up at bedside with ALMA Falcon. pt felt unsteady so we assisted her back to the bed.
--- NOTE | 2023-05-07 21:41 | PC.NURSE ---
Dr. Contreras asked this nurse to do an ambulation trial with patient. Patient attempted to ambulate in the room with walker, could only take on step and wa shaking and could not take additional steps, Dr. Contreras notified.
[2023-05-07] MEDS: SODIUM CHLORIDE 0.9% 500 ML 1000 ML IV (22:58)
[2023-05-07] MEDS: GABAPENTIN 600 MG TABLET PO (23:09)
[2023-05-08 00:30] VITALS: BMI 23.4
[2023-05-08 04:44] VITALS: BP 172/99; PULSE 62; RESP 16; O2SAT 99
--- NOTE | 2023-05-08 04:58 | PM.HP.1 ---
History of Present Illness History of Present Illness Date Patient Seen: 05/07/23 Chief complaint: Fall Narrative: 87 y/o with PMH of lymphocytic colitis, gout, GERD, PRABHJOT, presented to ED after she sustained GLF due to dizziness and weakness. She was visiting from [place] and believes that she became dehydrated. She has chronically loose stool with underlying colitis. ED workup positive for UTI and hypokalemia in addition to large Rt lower leg laceration. She did not have palpitations, chest pain or pressure, nausea, diaphoresis or any other symptom, including dysuria. [facility] Medical History (Updated 05/08/23 @ 05:09 by Crispin Daniel MD) PRABHJOT (obstructive sleep apnea) Lymphocytic colitis Social History Smoking Status: Unknown if ever smoked Meds Home Medications and Allergies Home Medications Medication Instructions Recorded Confirmed Type allopurinol 300 mg tablet 300 mg PO DAILY gout pain 05/07/23 05/07/23 History budesonide 3 mg 900 mg PO QAM 05/07/23 05/07/23 History capsule,delayed,extended release colchicine (gout) 0.6 mg tablet 0.6 mg PO DAILY 05/08/23 05/08/23 History famotidine 20 mg tablet 20 mg PO BID 05/08/23 05/08/23 History gabapentin 300 mg capsule 600 mg PO BID 05/08/23 05/08/23 History loperamide 2 mg capsule 2 mg PO Q4HR PRN Diarrhea 05/08/23 05/08/23 History (Anti-Diarrheal (loperamide)) minoxidil 2.5 mg tablet 2.5 mg PO DAILY 05/08/23 05/08/23 History prednisone 10 mg tablet 20 mg PO QAM 05/08/23 05/08/23 History valacyclovir 1 gram tablet 1,000 mg PO DAILY 05/08/23 05/08/23 History Allergies Allergy/AdvReac Type Severity Reaction Status Date / Time No Known Drug Allergies Allergy Verified 05/07/23 14:50 Review of Systems Constitutional Comments: w/o fever, chills, sweats Has generalized weakness Eyes Comments: w/o recent vision changes Cardiovascular Comments: w/o chest pain or palpitations Respiratory Comments: w/o cough or wheezing Using oxygen 2 L at night for PRABHJOT as she is intolerant of CPAP Gastrointestinal Comments: heartburn Genitourinary Comments: denies dysuria Musculoskeletal Comments: tender right lower leg laceration Neurologic Comments: w/o focal weakness, numbness, headache Exam Vital Signs (past 8 hours): - 05/07/23 21:00 05/07/23 21:00 05/07/23 21:20 Pulse Rate 57 L Respiratory Rate Blood Pressure 158/69 H 155/95 H Pulse Oximetry 100 Oxygen Delivery Method Nasal Cannula Oxygen Flow Rate 2 05/07/23 21:20 05/07/23 21:30 05/07/23 21:38 Pulse Rate 60 87 Respiratory Rate 20 19 Blood Pressure 168/73 H Pulse Oximetry 100 100 Oxygen Delivery Method Nasal Cannula Oxygen Flow Rate 2 05/07/23 21:38 05/07/23 21:40 05/07/23 21:40 Pulse Rate 66 60 Respiratory Rate 20 18 Blood Pressure 150/69 H Pulse Oximetry 99 100 Oxygen Delivery Method Nasal Cannula Oxygen Flow Rate 2 05/07/23 21:59 05/07/23 22:00 05/07/23 22:00 Pulse Rate 56 L 55 L Respiratory Rate 19 19 Blood Pressure 146/72 H Pulse Oximetry 100 100 Oxygen Delivery Method Nasal Cannula Oxygen Flow Rate 2 05/07/23 22:21 05/07/23 22:21 05/07/23 22:30 Pulse Rate 57 L 54 L Respiratory Rate 17 13 Blood Pressure 166/77 H Pulse Oximetry 100 99 Oxygen Delivery Method Oxygen Flow Rate 05/07/23 22:40 05/07/23 22:40 05/07/23 23:00 Pulse Rate 58 L 60 Respiratory Rate 15 23 Blood Pressure 171/80 H Pulse Oximetry 100 100 Oxygen Delivery Method Oxygen Flow Rate 05/07/23 23:01 05/07/23 23:01 05/07/23 23:42 Pulse Rate 60 60 Respiratory Rate 23 16 Blood Pressure 154/74 H 172/75 H Pulse Oximetry 100 97 Oxygen Delivery Method Oxygen Flow Rate 2 05/08/23 00:30 05/08/23 04:44 Pulse Rate 62 Respiratory Rate 16 Blood Pressure 172/99 H Pulse Oximetry 99 Oxygen Delivery Method Room Air Nasal Cannula Oxygen Flow Rate 2 Oxygen Delivery Method Room Air,Nasal Cannula Oxygen Flow Rate 2 Objective Labs 05/07/23 19:15 05/07/23 19:15 Labs: Laboratory Results - last 24 hr 05/07/23 05/07/23 17:04 19:15 WBC 11.3 H RBC 3.53 L Hgb 12.3 Hct 36.1 MCV 102.4 H MCH 34.8 H MCHC 34.0 RDW 16.4 H Plt Count 226 Neut % (Auto) 89.4 H Lymph % (Auto) 6.9 L [place] % (Auto) 3.5 Eos % (Auto) 0.0 L Baso % (Auto) 0.2 Neut # (Auto) 09408 H Lymph # (Auto) 800 L [place] # (Auto) 400 Eos # (Auto) 0 Baso # (Auto) 0 Sodium 137 Potassium 3.0 L Chloride 99 Carbon Dioxide 31 BUN 32 H Creatinine 1.00 Estimated GFR 55 L BUN/Creatinine Ratio 32.0 H Glucose 100 Calcium 9.6 Magnesium 1.8 Total Bilirubin 0.9 AST 35 ALT 28 Alkaline Phosphatase 121 Total Creatine Kinase 38 Troponin I < 0.012 Total Protein 6.5 Albumin 3.6 Globulin 2.9 Albumin/Globulin Ratio 1.2 Urine RBC 0-1/hpf Urine WBC 10-30/hpf H Ur Squamous Epith Cells 5-10 /hpf H Ur Transition Epith Cell 5-10/hpf H Urine Bacteria Few (2-10) H Ur Culture Indicated? Specimen cultured Assessment & Plan Assessment and plan (1) Acute UTI: Status: Acute Plan: Rocephin. UC pending. Not septic. At risk, chronic diarrhea, immunosuppressed (2) Acute dehydration: Status: Acute Plan: had IVFs in ED (3) Laceration of knee, right: Status: Acute Plan: suttured in ED, wound care (4) Acute hypokalemia: Status: Acute Plan: supplemented, repeating BMP, likely GI loses (5) Weakness: Status: Acute Plan: from dehydration, UTI (6) Gout: Status: Acute Plan: Allopurinol (7) PRABHJOT (obstructive sleep apnea): Status: Acute Plan: O2 2 L at night instead of CPAP that she can't tolerate (8) Lymphocytic colitis: Status: Acute Plan: Had several recent hospitalizations, last one in [facility], followed by GI, on budesonide and prednisone Pepcid 20 mg bid for GI prophylaxis
[2023-05-08 06:23] VITALS: BP 160/85
[2023-05-08] MEDS: IBUPROFEN 400 MG TABLET PO ×3 (06:35→22:55)
[2023-05-08 07:48] VITALS: PULSE 91; O2SAT 98
[2023-05-08 08:00] VITALS: BP 159/82; PULSE 54; RESP 17; TEMP 36.2; O2SAT 99
[2023-05-08 08:27] LABS: Hematocrit 33.6 % (36-46); Hemoglobin 11.6 g/dL (12.0-16.0); Mean Corpuscular HGB Conc 34.6 % (30-36); Mean Corpuscular Volume 104.2 fL (80-100); Platelet Count 192 X10^3/uL (150-400); Red Blood Cell Count 3.23 X10^6/uL (4.0-5.2); Red Cell Distribution Width 16.6 % (11.6-14.8)
[2023-05-08 08:30] LABS: Add Manual Diff / Slide Review YES
[2023-05-08] MEDS: GABAPENTIN 300 MG CAPSULE 600 MG PO ×2 (08:33→20:58)
[2023-05-08] MEDS: allopurinoL 100 MG TABLET 300 MG PO (08:33)
[2023-05-08] MEDS: predniSONE 20 MG TABLET PO (08:33)
[2023-05-08] MEDS: COLCHICINE 0.6 MG TABLET PO (08:33)
[2023-05-08] MEDS: FAMOTIDINE 20 MG TABLET PO (08:33)
[2023-05-08] MEDS: valACYclovir 500 MG TABLET 1000 MG PO (08:34)
[2023-05-08 08:36] LABS: BUN Creatinine Ratio 24.7 (6-22); Blood Urea Nitrogen 20 mg/dL (7-17); Calcium 9.3 mg/dL (8.4-10.2); Carbon Dioxide 29 mmol/L (22-32); Chloride 106 mmol/L (98-107); Estimated Glomerular Filt Rate > 60 mL/min (>60); Glucose 78 mg/dL (80-110); HEMOLYSIS < 15 (0-50); Potassium 4.1 mmol/L (3.4-5.1); Sodium 137 mmol/L (137-145)
[2023-05-08] MEDS: BUDESONIDE 3 MG CAP 9 MG PO (08:43)
[2023-05-08 09:10] LABS: Neutrophils Absolute Manual 6160 /uL (3000-5900); RBC Morphology Normal Morphology; Total Cells Counted 100
--- NOTE | 2023-05-08 11:57 | PT.IIE ---
Current Diagnoses Dehydration (05/07/23) Hypokalemia (05/07/23) Obstructive sleep apnea (adult) (pediatric) (05/07/23) Lymphocytic colitis (05/07/23) Gout, unspecified (05/07/23) Urinary tract infection, site not specified (05/07/23) Weakness (05/07/23) Laceration without foreign body, right knee, initial encounter (05/07/23) Medical History (Last Updated 05/08/23 @ 05:09 by Crispin Daniel MD) Lymphocytic colitis PRABHJOT (obstructive sleep apnea) Physical Therapy Inpatient Evaluation/Re-Eval M1 PT/OT-IP Prior Functional Status Start: 05/08/23 11:58 Freq: NEEDED Status: Active Protocol: Document 05/08/23 12:02 AB (Rec: 05/08/23 12:38 AB [id number]) Medical Review Prior Functional Status Medical History Reviewed Yes Communication Pt is able to express all needs. Mobility and Gait Pt reports using 4WW for mobility. Activities of Daily Living and IADL's Pt is modified independent with ADLs and IADLs prior to hospitalization. Prior Functional Level (Other details) Pt was taking care of daughter who recently underwent abdominal surgery, as well as her granddaughter. Social History Household Members family,children Living Arrangements House Number of Floors (Floors) One Floor Number of Stairs To Enter/Railing? 2 LEELA through garage with 1 grab bar on wall Home Environment Standard Height Toilet,Walk in Shower,Not Wheelchair Accessible Home Equipment Four Wheel Walker,Straight Cane,Hand Held Shower Additional Social History Comment Pt reports she is currently living with daughter to assist her after her daughter's surgery. Above info is from her daughter's home. Her daughter cannot phyiscally assist the pt due to her medical issues. She also reports a FWW is too wide to fit in her daughter's home, which is why she uses a 3 wheel rollator walker in her daughter's home. M2 PT-IP Current Condition Start: 05/08/23 11:58 Freq: NEEDED Status: Active Protocol: Document 05/08/23 12:02 AB (Rec: 05/08/23 12:38 AB [id number]) Physical Therapy Current Condition Current Condition Evaluation Date 05/08/23 Treatment Diagnosis fall; generalized weakness Onset Date 05/07/2023 M3 PT-IP Subjective Start: 05/08/23 11:58 Freq: NEEDED Status: Active Protocol: Document 05/08/23 12:02 AB (Rec: 05/08/23 12:38 AB [id number]) Subjective Physical Therapy Visit Type Type Initial Evaluation Visit Start Time 10:30 Visit Stop Time 11:57 Total Visit Minutes 83 Physical Therapy Visit Comments Patient Comments Pt presents in bed and is agreeable to PT evaluation this afternoon. Therapy Pain Assessment Pain When Pain Assessed During Mobility Pain Present Pain Present Pain Reported Location Right Knee Scale Used unable to quantify Pain Behaviors Facial Grimacing,Wincing Pain Management Techniques Re-positioning,Timing of Activity with Medications Right Foot Scale Used unable to quantify Pain Behaviors Facial Grimacing,Wincing Pain Management Techniques Re-positioning,Timing of Activity with Medications M4 PT-IP Mobility and Gait Start: 05/08/23 11:58 Freq: NEEDED Status: Active Protocol: Document 05/08/23 12:02 AB (Rec: 05/08/23 12:38 AB [id number]) PT-Bed Mobility Assessment Rolling Type of Rolling Bilateral Level of Assist Standby Assistance Supine to Sit Supine to Sit Standby Assistance,Head of Bed Elevated Sit to Supine Sit to Supine Minimal Assistance,Head of Bed Elevated Scooting Scooting to Edge of Bed Standby Assistance PT-Transfer Assessment Sit to and From Stand Sit to and from Stand Standby Assistance,Use of Upper Extremities Equipment Transfer Assistive Device Gait Belt,Front Wheeled Walker Transfers Transfer Destination Bed,Chair Transfer Technique Stand Step Pivot Transfer Ability Level of Assist Standby Assistance,Use of Upper Extremities Comments Mobility Comments Pt is able to perform bed mobility with SBA to Efren due to pain in right foot and knee with mobility. She is able to perform STS and transfers with FWW and SBA, with cues and education provided to extend right leg out to limit knee flexion when performing STS, as knee flexion causes pain d/t her wound. Gait Assessment Gait Gait Assistance Required: Standby Assistance,Contact Guard Assist Distance (Feet) 50 Assistive Devices Assistive Device Gait Belt,Front Wheeled Walker ,4 Wheeled Walker Gait Deviations General Gait Pattern Antalgic,Decreased Stride Length,Decreased Feet Clearance,Narrow Based Gait Factors Limiting Gait Function Factors Limiting Gait Function Decreased Activity Tolerance, Decreased Strength,Limited Range of Motion,Pain Comments Gait Comments Pt's gait deviations are largely due to right foot and knee wounds which are causing increased pain, thereby affecting her stride length, foot clearance, and SOFÍA. She is able to ambulated 10ft x1 with FWW, demonstrating fair balance to attempt ambulation with 4WW. She then ambulated 50ft x2 and 20ft x1 with 4WW without significant instability or instances of LOB, while demonstrating good safety awareness and proper use of 4WW. Stair Climbing Assessment Evaluation Level of Assist On Stairs Standby Assistance,Contact Guard Assistance Devices Stair Climbing Assistive Devices Left Railing,Right Railing Technique/Endurance Stair Climbing Direction Ascend and Descend Stair Climbing Technique Step to Step Number of Steps Climbed 3 Query Text: Stair Climbing Set # Repetitions (reps) 1 Comments Stair Climbing Comments Pt requires use of bilateral hand rails to ascend/descend steps, as she did not feel safe enough to try with 1 hand rail only. She descends by stepping backward instead of forward and was hesitant to trying facing forward or laterally due to pain in right foot/knee, despite PT education. PT-Balance Assessment Sitting Balance and Reactions Static Sitting Balance Ability Good Dynamic Sitting Balance Ability Good Standing Balance and Reactions Static Standing Balance Ability Fair Dynamic Standing Balance Ability Fair Device Used FWW M5 PT-IP Objective Assessments Start: 05/08/23 11:58 Freq: NEEDED Status: Active Protocol: Document 05/08/23 12:02 (Rec: 05/08/23 12:38 AB [id number]) Orientation Orientation/Cognition Level of Alertness Alert Orientation Name,Age,Birthday,Month,Date, Year,Day of Week,Place, Situation Language Function Ability No Deficits Noted Safety Awareness Understands Safety Issues Memory Description No Deficits Noted Gross Range of Motion Upper Extremity ROM Assessment Within Functional Limits Lower Extremity ROM Assessment Right Impaired Impairments D/t pain from knee wound Strength Upper Extremity Strength Assessment Within Functional Limits Lower Extremity Strength Assessment Within Functional Limits M6 PT-IP Treatment Start: 05/08/23 11:58 Freq: NEEDED Status: Active Protocol: Document 05/08/23 12:02 AB (Rec: 05/08/23 12:38 AB [id number]) Physical Therapy Treatment Education Education Provided Safety Brace Education Patient M7 PT-IP Assessment and Plan Start: 05/08/23 11:58 Freq: NEEDED Status: Active Protocol: Document 05/08/23 12:02 AB (Rec: 05/08/23 12:38 AB [id number]) PT Summary Assessment and Plan Potential Rehabilitation Potential Good Status of Condition at Evaluation Stable Summary Impairments Pain,ROM,Strength,Balance,Bed Mobility,Transfers,Gait, Activity Tolerance Assessment Summary Natasha Matias is an 87 year old female patient having recently suffered a fall which caused a wound on her right knee, as well as generalized weakness. Of note, the pt reports a history of 6 falls over the last year and has previously attended outpatient PT to improve balance and strength deficits. The pt currently demonstrates decreased strength and endurance, which is limiting her ability to perform bed mobility independently. She requires SBA-Efren for bed mobility, and SBA for STS, transfer, ambulation and stairs. She is able to ambulate for 50ft with 4WW and ascend/descend 2 steps with bilateral hand rails. Based on her current level of function and home environment, PT recommends discharge to SNF in order to regain independence. However, discharge disposition is subject to change based on the pt's improvements and if she can receive assistance while living with her daughter. She would benefit from skilled PT during her hospitalization to improve to her highest level of function. Goals Bed Mobility Goal Independent Transfer Goal Independent,Four Wheeled Walker Gait Goal Independent,Four Wheel Walker Gait Distance 50 Other Goals Pt to be able to ascend/ descend 2 steps with left hand rail independently to demonstrate safety for discharge. Days to Meet Goals 10 Frequency of Treatment Frequency Of Treatment Once a Day Treatment Plan Physical Therapy Treatment Plan Bed Mobility Training,Transfer Training,Gait Training, Therapeutic Exercise,Balance Retraining,Discharge Planning, Hot or Cold Pack,Neuromuscular Re-ed,Coordination Retraining ,Manual Therapy Recommendations To Nursing Amount of Assist Needed Standby Assistance,1 Person Assist Discharge Recommendations PT Discharge Recommendations SNF Rehab Other Discharge Recommendations See assessment. Transportation Needs at Discharge Private Vehicle,Wheelchair/ Cabulance
--- NOTE | 2023-05-08 11:57 | PT.IIE ---
Current Diagnoses Dehydration (05/07/23) Hypokalemia (05/07/23) Obstructive sleep apnea (adult) (pediatric) (05/07/23) Lymphocytic colitis (05/07/23) Gout, unspecified (05/07/23) Urinary tract infection, site not specified (05/07/23) Weakness (05/07/23) Laceration without foreign body, right knee, initial encounter (05/07/23) Medical History (Last Updated 05/08/23 @ 05:09 by Crispin Daniel MD) Lymphocytic colitis PRABHJOT (obstructive sleep apnea) Physical Therapy Inpatient Evaluation/Re-Eval M1 PT/OT-IP Prior Functional Status Start: 05/08/23 11:58 Freq: NEEDED Status: Active Protocol: Document 05/08/23 12:02 AB (Rec: 05/08/23 12:38 AB [id number]) Medical Review Prior Functional Status Medical History Reviewed Yes Communication Pt is able to express all needs. Mobility and Gait Pt reports using 4WW for mobility. Activities of Daily Living and IADL's Pt is modified independent with ADLs and IADLs prior to hospitalization. Prior Functional Level (Other details) Pt was taking care of daughter who recently underwent abdominal surgery, as well as her granddaughter. Social History Household Members family,children Living Arrangements House Number of Floors (Floors) One Floor Number of Stairs To Enter/Railing? 2 LEELA through garage with 1 grab bar on wall Home Environment Standard Height Toilet,Walk in Shower,Not Wheelchair Accessible Home Equipment Four Wheel Walker,Straight Cane,Hand Held Shower Additional Social History Comment Pt reports she is currently living with daughter to assist her after her daughter's surgery. Above info is from her daughter's home. Her daughter cannot physically assist the pt due to her medical issues. She also reports a FWW is too wide to fit in her daughter's home, which is why she uses a 3 wheel rollator walker in her daughter's home. M2 PT-IP Current Condition Start: 05/08/23 11:58 Freq: NEEDED Status: Active Protocol: Document 05/08/23 12:02 AB (Rec: 05/08/23 12:38 AB [id number]) Physical Therapy Current Condition Current Condition Evaluation Date 05/08/23 Treatment Diagnosis fall; generalized weakness Onset Date 05/07/2023 M3 PT-IP Subjective Start: 05/08/23 11:58 Freq: NEEDED Status: Active Protocol: Document 05/08/23 12:02 AB (Rec: 05/08/23 12:38 AB [id number]) Subjective Physical Therapy Visit Type Type Initial Evaluation Visit Start Time 10:30 Visit Stop Time 11:57 Total Visit Minutes 83 Physical Therapy Visit Comments Patient Comments Pt presents in bed and is agreeable to PT evaluation this afternoon. Therapy Pain Assessment Pain When Pain Assessed During Mobility Pain Present Pain Present Pain Reported Location Right Knee Scale Used unable to quantify Pain Behaviors Facial Grimacing,Wincing Pain Management Techniques Re-positioning,Timing of Activity with Medications Right Foot Scale Used unable to quantify Pain Behaviors Facial Grimacing,Wincing Pain Management Techniques Re-positioning,Timing of Activity with Medications M4 PT-IP Mobility and Gait Start: 05/08/23 11:58 Freq: NEEDED Status: Active Protocol: Document 05/08/23 12:02 AB (Rec: 05/08/23 12:38 AB [id number]) PT-Bed Mobility Assessment Rolling Type of Rolling Bilateral Level of Assist Standby Assistance Supine to Sit Supine to Sit Standby Assistance,Head of Bed Elevated Sit to Supine Sit to Supine Minimal Assistance,Head of Bed Elevated Scooting Scooting to Edge of Bed Standby Assistance PT-Transfer Assessment Sit to and From Stand Sit to and from Stand Standby Assistance,Use of Upper Extremities Equipment Transfer Assistive Device Gait Belt,Front Wheeled Walker Transfers Transfer Destination Bed,Chair Transfer Technique Stand Step Pivot Transfer Ability Level of Assist Standby Assistance,Use of Upper Extremities Comments Mobility Comments Pt is able to perform bed mobility with SBA to Efren due to pain in right foot and knee with mobility. She is able to perform STS and transfers with FWW and SBA, with cues and education provided to extend right leg out to limit knee flexion when performing STS, as knee flexion causes pain d/t her wound. Gait Assessment Gait Gait Assistance Required: Standby Assistance,Contact Guard Assist Distance (Feet) 50 Assistive Devices Assistive Device Gait Belt,Front Wheeled Walker ,4 Wheeled Walker Gait Deviations General Gait Pattern Antalgic,Decreased Stride Length,Decreased Feet Clearance,Narrow Based Gait Factors Limiting Gait Function Factors Limiting Gait Function Decreased Activity Tolerance, Decreased Strength,Limited Range of Motion,Pain Comments Gait Comments Pt's gait deviations are largely due to right foot and knee wounds which are causing increased pain, thereby affecting her stride length, foot clearance, and SOFÍA. She is able to ambulated 10ft x1 with FWW, demonstrating fair balance to attempt ambulation with 4WW. She then ambulated 50ft x2 and 20ft x1 with 4WW without significant instability or instances of LOB, while demonstrating good safety awareness and proper use of 4WW. Stair Climbing Assessment Evaluation Level of Assist On Stairs Standby Assistance,Contact Guard Assistance Devices Stair Climbing Assistive Devices Left Railing,Right Railing Technique/Endurance Stair Climbing Direction Ascend and Descend Stair Climbing Technique Step to Step Number of Steps Climbed 3 Query Text: Stair Climbing Set # Repetitions (reps) 1 Comments Stair Climbing Comments Pt requires use of bilateral hand rails to ascend/descend steps, as she did not feel safe enough to try with 1 hand rail only. She descends by stepping backward instead of forward and was hesitant to trying facing forward or laterally due to pain in right foot/knee, despite PT education. PT-Balance Assessment Sitting Balance and Reactions Static Sitting Balance Ability Good Dynamic Sitting Balance Ability Good Standing Balance and Reactions Static Standing Balance Ability Fair Dynamic Standing Balance Ability Fair Device Used FWW M5 PT-IP Objective Assessments Start: 05/08/23 11:58 Freq: NEEDED Status: Active Protocol: Document 05/08/23 12:02 AB (Rec: 05/08/23 12:38 AB [id number]) Orientation Orientation/Cognition Level of Alertness Alert Orientation Name,Age,Birthday,Month,Date, Year,Day of Week,Place, Situation Language Function Ability No Deficits Noted Safety Awareness Understands Safety Issues Memory Description No Deficits Noted Gross Range of Motion Upper Extremity ROM Assessment Within Functional Limits Lower Extremity ROM Assessment Right Impaired Impairments D/t pain from knee wound Strength Upper Extremity Strength Assessment Within Functional Limits Lower Extremity Strength Assessment Within Functional Limits M6 PT-IP Treatment Start: 05/08/23 11:58 Freq: NEEDED Status: Active Protocol: Document 05/08/23 12:02 AB (Rec: 05/08/23 12:38 AB [id number]) Physical Therapy Treatment Education Education Provided Safety Brace Education Patient M7 PT-IP Assessment and Plan Start: 05/08/23 11:58 Freq: NEEDED Status: Active Protocol: Document 05/08/23 12:02 AB (Rec: 05/08/23 12:38 AB [id number]) PT Summary Assessment and Plan Potential Rehabilitation Potential Good Status of Condition at Evaluation Stable Summary Impairments Pain,ROM,Strength,Balance,Bed Mobility,Transfers,Gait, Activity Tolerance Assessment Summary Natasha Matias is an 87 year old female patient having recently suffered a fall which caused a wound on her right knee, as well as generalized weakness. Of note, the pt reports a history of 6 falls over the last year and has previously attended outpatient PT to improve balance and strength deficits. The pt currently demonstrates decreased strength and endurance, which is limiting her ability to perform bed mobility independently. She requires SBA-Efren for bed mobility, and SBA for STS, transfer, ambulation and stairs. She is able to ambulate for 50ft with 4WW and ascend/descend 2 steps with bilateral hand rails. Based on her current level of function and home environment, PT recommends discharge to SNF in order to regain independence. However, discharge disposition is subject to change based on the pt's improvements and if she can receive assistance while living with her daughter. Goals Bed Mobility Goal Independent Transfer Goal Independent,Four Wheeled Walker Gait Goal Independent,Four Wheel Walker Gait Distance 50 Other Goals Pt to be able to ascend/ descend 2 steps with left hand rail independently to demonstrate safety for discharge. Days to Meet Goals 10 Frequency of Treatment Frequency Of Treatment Once a Day Treatment Plan Physical Therapy Treatment Plan Bed Mobility Training,Transfer Training,Gait Training, Therapeutic Exercise,Balance Retraining,Discharge Planning, Hot or Cold Pack,Neuromuscular Re-ed,Coordination Retraining ,Manual Therapy Recommendations To Nursing Amount of Assist Needed Standby Assistance,1 Person Assist Discharge Recommendations PT Discharge Recommendations SNF Rehab Other Discharge Recommendations Pt may discharge safely to home if assistance is available. Transportation Needs at Discharge Private Vehicle,Wheelchair/ Cabulance
--- NOTE | 2023-05-08 14:22 | OT.IP.EVAL ---
Current Diagnoses Dehydration (05/07/23) Hypokalemia (05/07/23) Obstructive sleep apnea (adult) (pediatric) (05/07/23) Lymphocytic colitis (05/07/23) Gout, unspecified (05/07/23) Urinary tract infection, site not specified (05/07/23) Weakness (05/07/23) Laceration without foreign body, right knee, initial encounter (05/07/23) Past Medical History (Last Updated 05/08/23 @ 05:09 by Crispni Daniel MD) Lymphocytic colitis PRABHJOT (obstructive sleep apnea) Occupational Therapy Inpatient Evaluation/Re-Eval M1 PT/OT-IP Prior Functional Status Start: 05/08/23 14:39 Freq: NEEDED Status: Active Protocol: Document 05/08/23 14:39 [facility] (Rec: 05/08/23 15:09 [facility] [id number]) Medical Review Prior Functional Status Medical History Reviewed Yes Communication Pt is able to express all needs. Mobility and Gait Pt reports using 4WW for mobility. Activities of Daily Living and IADL's Pt is modified independent with ADLs and IADLs prior to hospitalization. Pt states does her own wound care on her own. Prior Functional Level (Other details) Pt was taking care of daughter who recently underwent abdominal surgery, as well as her granddaughter. Social History Household Members family,children Living Arrangements House Number of Floors (Floors) One Floor Number of Stairs To Enter/Railing? 2 LEELA through garage with 1 grab bar on wall Home Environment Standard Height Toilet,Walk in Shower,Not Wheelchair Accessible Home Equipment Four Wheel Walker,Straight Cane,Hand Held Shower Additional Social History Comment Pt reports she is currently living with daughter to assist her after her daughter's surgery. Above info is from her daughter's home. Her daughter cannot physically assist the pt due to her medical issues. She also reports a FWW is too wide to fit in her daughter's home, which is why she uses a 3 wheel rollator walker in her daughter's home. Pt states her 10 year old grand daughter has been assisting at home with her daughter after having abdominal surgery. M2 OT-IP Current Condition Start: 05/08/23 14:39 Freq: Status: Active Protocol: Document 05/08/23 14:39 [facility] (Rec: 05/08/23 15:09 [facility] [id number]) Occupational Therapy Current Condition Current Condition Evaluation Date 05/08/23 Treatment Diagnosis Dehydration/weakness Diagnosis Onset Date 05/07/23 M3 OT- IP Subjective and Pain Start: 05/08/23 14:39 Freq: Status: Active Protocol: Document 05/08/23 14:39 [facility] (Rec: 05/08/23 15:09 [facility] [id number]) OT- Subjective Occupational Therapy Visit Type Type Initial Evaluation Visit Start Time 13:17 Visit Stop Time 14:22 Total Visit Minutes 55 Occupational Therapy Visit Comments Patient Comments Pt agreed to get up and needing to use the bathroom. Patient/Caregiver Goals To go home. OT Pain Assessment Pain When Pain Assessed At Rest Pain Present Pain Present Pain Reported Location Right Knee Pain Behaviors Facial Grimacing,Holding Area, Wincing M4 OT- IP ADL's Start: 05/08/23 14:39 Freq: Status: Active Protocol: Document 05/08/23 14:39 [facility] (Rec: 05/08/23 15:09 [facility] [id number]) OT LGL-Yshm-Itryodn Comments OT Self-Feeding Comments Not at meal time. Due to arthritis would benefit from assist with set-up. OT ADL-Grooming General Evaluation Grooming Ability Standby Assistance Areas Needing Assistance Retrieving/Set-up of Grooming Items Comments OT Grooming Comments Pt able to wash her face while standing at the sink. Pt not wanting to brush her hair at this time. OT ADL-Oral Care General Eval Oral Care Ability Independent Areas of Assistance Retrieving/Set-Up of Items Comments Oral Care Comments Pt having to lean on the counter for her balance. OT ADL-Dressing General Eval Lower Body Dressing Ability Maximum Assistance Comments OT Dressing Comments Assist for LB dressing needs. OT ADL-Toileting General Evaluation Toileting Ability Minimal Assistance Comments OT Toileting Comments DEBO to help pull up the brief over her hips. OT ADL-Bathing Comments OT Bathing Comments NOt performed. Pt states does sponge baths due to her wounds on her legs. M5 OT- IP IADL's Start: 05/08/23 14:39 Freq: Status: Active Protocol: Document 05/08/23 14:39 [facility] (Rec: 05/08/23 15:09 [facility] [id number]) OT-Instrumental Activities of Daily Living Deficits IADL Deficits Identified Deficits Home Safety Awareness Awareness of Need for Assistance at Home Good Awareness Ability to Problem Solve Emergency Able to Problem Solve Situations Home Safety Comments Pt insists that her 10 year old grand daughter will be able to provide assist at home for her and her daughter-who just had abdominal surgery. Medication Management Medication Management Comments Pt states does so on her own. Money Management Money Management Comments Pt states does on her own. Meal Preparation Meal Preparation Caregiver Provides Assist Meal Preparation Comments Grand daughter assist or mainly she just open up cans to eat her protein and her daughter mainly just drinks her protein. When asked what her grand daughter eats- frozen veggies, as she like the crunch of it and that she is able to scamble eggs for herself. Emergency Response Officer Emergency Response Officer Caregiver Provides Assist Driving Driving Concerns Identified Regarding Safety Driving Comments Due to injury of right knee concerns for driving safety in addition to possible cognitive deficits, however maybe due to her dehydration- a cognitive assessment would be beneficial. M6 OT- IP Functional Cognition Start: 05/08/23 14:39 Freq: Status: Active Protocol: Document 05/08/23 14:39 [facility] (Rec: 05/08/23 15:09 [facility] [id number]) Cognitive Factors Limiting Selfcare Function Cognitive Ability Level of Alertness Alert Patient Orientation Name,Age,Birthday,Month,Date, Year,Day of Week,Place, Situation Attention Span Ability Capable of Focused Attention, Capable of Sustained Attention Ability to Follow Commands Able to Follow One Step Commands Memory Description Short Term Impaired Safety Awareness Underestimates Need for Assistance Cognitive Comments Cognitive Assessment Comments Pt needing vc for walker safety and to be sure to push up from surfaces when coming to stand to the 4ww. OT- Vision and Hearing OT- Hearing Assessment OT- Hearing Assessment [facility] OT- Vision Assessment Visual Acuity Glasses For Reading Occular Pursuits [facility] M7 OT- IP Mobility and Balance Start: 05/08/23 14:39 Freq: Status: Active Protocol: Document 05/08/23 14:39 [facility] (Rec: 05/08/23 15:09 [facility] [id number]) OT- Bed Mobility Assessment Supine to Sit Supine to Sit Assist Standby Assistance,Minimal Assistance Sit to Supine Sit to Supine Assist Standby Assistance,Minimal Assistance Scooting Scooting to Edge of Bed Standby Assistance OT-Transfer Assessment Sit to and From Stand Sit to and from Stand Contact Guard Assistance Transfers Transfer Ability Standby Assistance Technique Transfer Destination Bed,Toilet Transfer Technique Stand Step Pivot Devices Transfer Assistive Devices Gait Belt,4 Wheeled Walker Comments Mobility Comments Pt needing assist to help lift her RLE onto and off the bed. Able to show and let pt borrow leg batch mixer operator so able to do on her own in the room and with nursing supervision. Pt able to walk with unsteady gait due to right knee pain and close SBA for level surfaces. OT- Balance Assessment Sitting Balance and Reactions Static Sitting Balance Ability Normal Dynamic Sitting Balance Ability Good Standing Balance and Reactions Static Standing Balance Ability Fair Dynamic Standing Balance Ability Fair M8 OT- IP Objective Assessments Start: 05/08/23 14:39 Freq: Status: Active Protocol: Document 05/08/23 14:39 [facility] (Rec: 05/08/23 15:09 [facility] [id number]) OT Gross Range of Motion Upper Extremity Range of Motion Assessment Bilaterally Impaired OT Strength Upper Extremity Strength Assessment Bilaterally Impaired Comments Strength Comments Pt's BUE 3-/5 to 4/5 from proximal to distal. OT- Coordination Assessment Comments Coordination Comments Decreased and need assists for FMS to open items for grooming needs. M9 OT- IP Assessment and Plan Start: 05/08/23 14:39 Freq: Status: Active Protocol: Document 05/08/23 14:39 [facility] (Rec: 05/08/23 15:09 [facility] [id number]) OT Summary Assessment and Plan Potential Rehabilitation Potential Good Analytic Complexity at Evaluation Moderate Summary OT Impairments Pain,Range of Motion,Strength, Balance,Functional Cognition, Functional Mobility,Dressing, Toileting,Bathing,Toilet Transfers,Shower Transfers, Activity Tolerance Progress Towards Goals Progressing Toward Goals,Slow Progress due to Pain,Slow Progress due to Activity Tolerance Assessment Summary Pt MOD complexity and main barriers are pain, now needing assist for ADL needs especially for LB dressing needs and has decreased dynamic balance. Able to suggest getting a BSC and leg batch mixer operator for home use. Able to go over gentle stretches for her internal rotators to help increase her AROM for BUE. Pt would greatly benefit from skilled rehab as now would need assist at home. Prior she was assisting her daughter who just had abdominal surgery. In addition her 10 year old grand daughter has been assisting her mom now. Pt states the grand daughter will be able to both her and her daughter. It would be beneficial for the pt to go to skilled rehab until pt is more independent to care for herself instead of relying on her 10 year old grand daughter . If pt not able to be authorized or refusing to go to SNF, suggest home with assist and home health. Goals Self-Feeding Goal Independent Grooming Goal Independent Dressing Goal Independent Toileting Goal Independent Bathing Goal Independent Toilet Transfer Goal Independent Shower Transfer Goal Independent Days to Meet Goals 10 Frequency of Treatment Frequency Of Treatment Once a Day Treatment Plan OT Treatment Plan ADL Training,Functional Cognition Training,Functional Mobility,Therapeutic Exercises ,Patient/Family Education, Discharge Planning Other Treatment Recommendations and Next LB dressing needs. Treatment Focus Discharge Recommendations OT Discharge Recommendations SNF Rehab,Home vs SNF Other Discharge Recommendations If pt not authorized or refusing, pt to go home with assist and home health. Home Equipment Needs BSC, leg batch mixer operator Transportation Needs at Discharge Private Vehicle,Wheelchair/ Cabulance
--- NOTE | 2023-05-08 14:25 | CM.DANOTE ---
Initial DCP Assessment Note Pt is an 87 yo female, resident of [place], comes in after a fall at her daughter's home, admitted OBS for management of acute dehydration, acute hypokalemia, weakness , and a laceration on her right knee- patient received stitches in the ER. Patient failed ambulation trial in the ER per chart review. PT/OT recommending SNF at this time. PCP: Tamia Vázquez Payer: [facility] Met w/patient at bedside, introduced self and role. Patient lives alone in a long-term apt in [place], indp w/ ADLs w/walker. Patient reports she has had balance issues this summer and has had numerous falls and hospitalizations, after which she has spent time at care home facilities. Patient further explains she had been diagnosed with colitis/IBS recently and subsequently struggles with diarrhea, dehydration and weakness. Patient is visiting her daughter Jacqueline, 53 yo, to look after grand daughter Jessica, 10 yo, as Jacqueline recovers from a large surgery done last Friday. Patient's grand daughter Jessica, 10 yo, goes to [facility] here in [place] and is currently looking after herself and her mom while patient is admitted at the hospital. Discussed patient's DCP; patient is hopeful to return to her daughter's home upon discharge. Patient states she would consider SNF if recommended and prefers [facility] as it is in [place]. Referral discussed with Margie at [facility] after review, patient has been accepted at SNF pending auth from [facility]. PASRR completed in anticipation of SNF upon discharge. CM team will plan to follow closely for coordination of DCP. NERIS Kapoor Discharge Planning/Care Management CM Discharge Assessment Start: 05/08/23 13:56 Freq: Status: Active Protocol: Document 05/08/23 13:56 [facility] (Rec: 05/08/23 14:25 [facility] [id number]) Discharge Planning Assessment Assigned Nurse Supervisor NERIS Chery DPOA/Assigned Designee Name jessie Akhtar Contact Information [phone] Advance Directives? No History Provided By Patient,Medical Record Prior Living Arrangements House Household Members family,children Type of transporation used prior to Drives own vehicle admit Independent with ADL's Yes Is patient alert and oriented? Yes Patient/Family Preference Home with Home Health Comment PT recommending SNF, patient agreeable Barriers to Discharge Yes Comment Lives alone in a senior apt in [place]. Staying with her daughter Jacqueline since Jacqueline had a large surgery Friday, came to town to help with 10 yo grand dtr Jessica. Had her fall while getting caught up and tripped. Discharge Plan [facility] Facility Transportation Arrangement Transport TBD if discharging home. Wheelchair van if SNF. Referrals Initiated Correction Additional Comment [facility] accepted, will submit auth to [facility] MCR If patient plan is SNF: Has PASSR been Yes completed?
--- NOTE | 2023-05-08 14:29 | P.PN_ITS ---
Subjective Subjective Interval history: 87 F admitted after a fall with reported weakness, with mildly low potassium at 3.0 and leukocytosis. She has a positive UA, but reports no dysuria or urinary symptoms. She has been in and out of hospitals and SNF rehabs recently, and came up here to help her daughter undergoing a surgery. She became stiff and in a different environment fell and lacerated her R leg. This was repaired in the ER. PT/OT today recommended SNF. Exam Vital Signs (past 8 hours): - 05/08/23 07:48 05/08/23 08:00 Temperature 97.1 F L Pulse Rate 91 H 54 L Respiratory Rate 17 Blood Pressure 159/82 H Pulse Oximetry 98 99 Oxygen Delivery Method Room Air Oxygen Flow Rate 0 0 Fraction of Inspired Oxygen 21 Fraction of Inspired Oxygen 21 SaO2/FiO2 Ratio 466 Oxygen Delivery Method Room Air Oxygen Flow Rate 0 Narrative Exam Narrative: GENERAL:? PATIENT IS WELL DEVELOPED AND WELL NOURISHED, IN NO DISTRESS AT THIS TIME. NECK: SUPPLE AND SYMMETRIC, TRACHEA IS MIDLINE, NO CERVICAL ADENOPATHY. CHEST:? NORMAL AP DIAMETER AND CONTOUR WITHOUT KYPHOSCOLIOSIS, NO TACHYPNEA, EQUAL CHEST RISE BILATERALLY. LUNGS:? CTA B/L NO WHEEZING RHONCHI OR RALES. CARDIO:?RRR NO M/R/G. ABDOMEN: S NT ND. MUSCULOSKELETAL:? R leg bandaged with mild serosanguinous drainage. EXTREMITIES: NO EDEMA OR JOINT EFFUSIONS. NEURO:? ALERT AND ORIENTATED X3,? SENSATION TO TOUCH INTACT IN ALL EXTREMITIES, NO GROSS DEFICITS NOTED OF CRANIAL NERVES. PSYCH:? PATIENT HAS A WELL-KEPT APPEARANCE, APPROPRIATE AFFECT, MENTAL STATUS ATTITUDE THOUGHT CONTEXT AND JUDGMENT ARE APPROPRIATE FOR AGE. Objective Labs 05/08/23 07:58 05/08/23 07:58 Labs: Laboratory Results - last 24 hr 05/07/23 05/07/23 05/08/23 17:04 19:15 07:58 WBC 11.3 H 8.0 RBC 3.53 L 3.23 L Hgb 12.3 11.6 L Hct 36.1 33.6 L MCV 102.4 H 104.2 H MCH 34.8 H 36.0 H MCHC 34.0 34.6 RDW 16.4 H 16.6 H Plt Count 226 192 Neut % (Auto) 89.4 H Not Reportable Lymph % (Auto) 6.9 L Not Reportable Gaines % (Auto) 3.5 Not Reportable Eos % (Auto) 0.0 L Not Reportable Baso % (Auto) 0.2 Not Reportable Neut # (Auto) 92816 H Lymph # (Auto) 800 L Not Reportable Gaines # (Auto) 400 Not Reportable Eos # (Auto) 0 Baso # (Auto) 0 Not Reportable Total Counted 100 Seg Neutrophils % 77.0 H Lymphocytes % (Manual) 14.0 L Monocytes % (Manual) 8.0 Eosinophils % (Manual) 1.0 L Neutrophils # (Manual) 6160 H RBC Morphology Normal morphology Sodium 137 137 Potassium 3.0 L 4.1 Chloride 99 106 Carbon Dioxide 31 29 BUN 32 H 20 H Creatinine 1.00 0.81 Estimated GFR 55 L > 60 BUN/Creatinine Ratio 32.0 H 24.7 H Glucose 100 78 L Calcium 9.6 9.3 Magnesium 1.8 Total Bilirubin 0.9 AST 35 ALT 28 Alkaline Phosphatase 121 Total Creatine Kinase 38 Troponin I < 0.012 Total Protein 6.5 Albumin 3.6 Globulin 2.9 Albumin/Globulin Ratio 1.2 Urine RBC 0-1/hpf Urine WBC 10-30/hpf H Ur Squamous Epith Cells 5-10 /hpf H Ur Transition Epith Cell 5-10/hpf H Urine Bacteria Few (2-10) H Ur Culture Indicated? Specimen cultured [facility] Medical History (Updated 05/08/23 @ 05:09 by Crispin Daniel MD) PRABHJOT (obstructive sleep apnea) Lymphocytic colitis Social History household members: family and children Smoking Status: Unknown if ever smoked Assessment & Plan Assessment & Plan narrative: (1) Asymptomatic bacteruria. - will stop antibiotics. (2) Acute dehydration: - received IV fluids. Tolerating a diet this morning. (3) Laceration of knee, right: - sutured in ED, continued local wound care. Follows with wound care chronically in [place] for other extremity wounds. (4) Acute hypokalemia: K 3.0 on admission, likely GI losses, improved with repletion. Continue to monitor. (5) Weakness: - continue PT / OT. (6) Gout: continue allopurinol (7) PRABHJOT (obstructive sleep apnea): Continue O2 2 L at night instead of CPAP that she can't tolerate (8) Lymphocytic colitis: - continue home steroid taper, she is on a months long steroid taper currently at 15 mg. Code: Full, surrogate is patient's daughter Dispo: observation, pending SNF after PT/OT evaluations DVT: SCD, with mild bleeding from lacteration will hold for now.
[2023-05-08 14:44] VITALS: BP 149/68; PULSE 51; RESP 17; TEMP 36.6; O2SAT 100
[2023-05-08 20:48] VITALS: BP 140/85; PULSE 65; RESP 16; TEMP 36; O2SAT 97
[2023-05-09 03:40] VITALS: BP 152/75; PULSE 49; RESP 17; TEMP 36.2; O2SAT 96
--- NOTE | 2023-05-09 06:33 | PC.WOUNDPHOT ---
Photos taken upon admit, 05/07. 1) R knee 2) L goode 1) 2)
[2023-05-09] MEDS: predniSONE 20 MG TABLET PO (09:59)
[2023-05-09] MEDS: FAMOTIDINE 20 MG TABLET PO (09:59)
[2023-05-09] MEDS: GABAPENTIN 300 MG CAPSULE 600 MG PO (10:00)
[2023-05-09] MEDS: valACYclovir 500 MG TABLET 1000 MG PO (10:00)
[2023-05-09] MEDS: allopurinoL 100 MG TABLET 300 MG PO (10:00)
[2023-05-09] MEDS: COLCHICINE 0.6 MG TABLET PO (10:00)
[2023-05-09] MEDS: BUDESONIDE 3 MG CAP 9 MG PO (10:05)
--- NOTE | 2023-05-09 10:08 | P.DS_ITS ---
History of Present Illness History of Present Illness Date Patient Seen: 05/09/23 Time Patient Seen: 10:08 Chief complaint: Fall Narrative: 87 y/o with PMH of lymphocytic colitis, gout, GERD, PRABHJOT, presented to ED after she sustained GLF due to dizziness and weakness. She was visiting from [place] and believes that she became dehydrated. She has chronically loose stool with underlying colitis. ED workup positive for UTI and hypokalemia in addition to large Rt lower leg laceration. She did not have palpitations, chest pain or pressure, nausea, diaphoresis or any other symptom, including dysuria. Discharge Providers Provider Date of admission: 05/07/23 23:16 Discharge Date: 05/09/23 Primary care physician: Tamia Vázquez MD Consults: 05/08/23 08:04 Consult to Physical Therapy Evaluate & Treat Comment: Physician Instructions: Evaluate and Treat 05/08/23 09:08 Consult to Occupational Therapy Evaluate & Treat Comment: Physician Instructions: Evaluate and treat Discharge provider: Howard Mcqueen DO Summary Hospital Course Discharge Diagnosis: (1) Asymptomatic bacteruria. (2) Acute dehydration: (3) Laceration of knee, right: (4) Acute hypokalemia: (5) Weakness: (6) Gout: (7) PRABHJOT (obstructive sleep apnea): (8) Lymphocytic colitis: Hospital Course: 87 F admitted after a fall with reported weakness, with mildly low potassium at 3.0 and leukocytosis. She has a positive UA, but reports no dysuria or urinary symptoms. She has been in and out of hospitals and SNF rehabs recently, and came up here to help her daughter undergoing a surgery. She became stiff and in a different environment fell and lacerated her R leg. This was repaired in the ER. She had PT/OT evaluations whom initially recommended SNF. She did a bit better the following day and did not wish to go to SNF, and felt well enough to discharge home. She was discharged home with home health evaluation. Time Spent with Patient Time spent: Less than 30 minutes Exam Vital Signs (past 8 hours): - 05/09/23 03:40 Temperature 97.1 F L Pulse Rate 49 L Respiratory Rate 17 Blood Pressure 152/75 H Pulse Oximetry 96 Oxygen Flow Rate 2 Fraction of Inspired Oxygen 21 SaO2/FiO2 Ratio 466 Oxygen Delivery Method Room Air Oxygen Flow Rate 2 Narrative Exam Narrative: GENERAL:? PATIENT IS WELL DEVELOPED AND WELL NOURISHED, IN NO DISTRESS AT THIS TIME. NECK: SUPPLE AND SYMMETRIC, TRACHEA IS MIDLINE, NO CERVICAL ADENOPATHY. CHEST:? NORMAL AP DIAMETER AND CONTOUR WITHOUT KYPHOSCOLIOSIS, NO TACHYPNEA, EQUAL CHEST RISE BILATERALLY. LUNGS:? CTA B/L NO WHEEZING RHONCHI OR RALES. CARDIO:?RRR NO M/R/G. ABDOMEN: S NT ND. MUSCULOSKELETAL:? R leg bandaged with mild serosanguinous drainage. EXTREMITIES: NO EDEMA OR JOINT EFFUSIONS. NEURO:? ALERT AND ORIENTATED X3,? SENSATION TO TOUCH INTACT IN ALL EXTREMITIES, NO GROSS DEFICITS NOTED OF CRANIAL NERVES. PSYCH:? PATIENT HAS A WELL-KEPT APPEARANCE, APPROPRIATE AFFECT, MENTAL STATUS ATTITUDE THOUGHT CONTEXT AND JUDGMENT ARE APPROPRIATE FOR AGE. Objective Labs 05/08/23 07:58 05/08/23 07:58 [facility] Medical History (Updated 05/08/23 @ 05:09 by Crispin Daniel MD) PRABHJOT (obstructive sleep apnea) Lymphocytic colitis Social History household members: family and children Smoking Status: Unknown if ever smoked Discharge Plan Discharge Plan Patient Disposition: Home Provider Discharge Comment: You were admitted to the hospital after a fall. Okay for discharge home after PT eval. Discharge orders & Medications Prescriptions: Continued allopurinol 300 mg tablet 300 mg PO DAILY budesonide 3 mg capsule,delayed,extend.release 9 mg PO QAM Rx Instructions: 3 caps per day prednisone 10 mg Tablet 20 mg PO QAM Patient Comments: take 20 mg till 05/11. Then taper to 15mg mg for 7 days. followed by 10mg for 7 days, then 5mg for 7 days loperamide [Anti-Diarrheal (loperamide)] 2 mg capsule 2 mg PO Q4HR PRN (Reason: Diarrhea) valacyclovir 1 gram tablet 1,000 mg PO DAILY minoxidil 2.5 mg tablet 2.5 mg PO DAILY famotidine 20 mg tablet 20 mg PO BID gabapentin 300 mg capsule 600 mg PO BID colchicine (gout) 0.6 mg tablet 0.6 mg PO DAILY Medication counseling provided by Pharmacist: Yes Follow up/Referrals: Tamia Vázquez MD [Primary Care Provider] - Diet/Activity/Treatments Diet: Diet as Tolerated and Regular Diet comment: As tolerated, per your prior dietary restrictions. Activity: As tolerated no restrictions. Visit Report/Discharge Packet Instructions: Urinary Tract Infection, DI for Urinary Tract Infection (UTI), How to Prevent Falls Stand Alone Forms: Patient Portal/API, Stroke Signs & Symptoms Discharge Data Primary Care Provider: Tamia Vázquez Attending Provider: Crispin Daniel Admit Date/Time: 05/07/23 23:16 Discharges patient from system. Discharge Date/Time: 05/09/23 12:09
--- NOTE | 2023-05-09 10:48 | CM.DPC ---
DCP Continued: LUDLOW MACHINE OPERATOR reviewed EMR. LUDLOW MACHINE OPERATOR entered room and introduced self and role. Patient reports she doesn't want to go to SNF at this time. Patient wants to return to daughter's home. Dtr can pick her up today. Patient open to HH. No preference, asked me to ask daughter about it. From provider, patient safe to d/c today. LUDLOW MACHINE OPERATOR spoke with Dtr Jacquleine, can pick her up today at noon at main entrance. Prefers [facility] at this time. LUDLOW MACHINE OPERATOR spoke with Sterling at [facility], agreed to review case. LUDLOW MACHINE OPERATOR completed face to face. LUDLOW MACHINE OPERATOR placed HH verbal read back order from provider. Plan: patient to d/c home today with [facility] pending and daughter support at noon at main entrance. CM team will continue to follow as needed. NERIS Mac
--- NOTE | 2023-05-09 10:54 | PT.IPTN ---
Current Diagnoses Dehydration (05/07/23) Hypokalemia (05/07/23) Obstructive sleep apnea (adult) (pediatric) (05/07/23) Lymphocytic colitis (05/07/23) Gout, unspecified (05/07/23) Urinary tract infection, site not specified (05/07/23) Weakness (05/07/23) Laceration without foreign body, right knee, initial encounter (05/07/23) Physical Therapy Treatment Note M2 PT-IP Current Condition Start: 05/08/23 11:58 Freq: NEEDED Status: Discharge Protocol: Document 05/09/23 10:19 SP (Rec: 05/09/23 14:23 SP [id number]) Physical Therapy Current Condition Current Condition Evaluation Date 05/08/23 Treatment Diagnosis fall; generalized weakness Onset Date 05/07/2023 M3 PT-IP Subjective Start: 05/08/23 11:58 Freq: NEEDED Status: Discharge Protocol: Document 05/09/23 10:19 SP (Rec: 05/09/23 14:23 SP [id number]) Subjective Physical Therapy Visit Type Type Treatment Note Visit Start Time 10:19 Visit Stop Time 10:54 Total Visit Minutes 35 Number of FRONT OFFICE AGENT Visits 1 Physical Therapy Visit Comments Patient Comments Pt in bed when arrived, agreeable to working with therapy. Patient Goals Wanting to go home with daughter/ grand daughter and agreeable to HHPT. Therapy Pain Assessment Pain When Pain Assessed During Mobility Pain Present Pain Present Pain Reported Location Right Knee Scale Used unable to quantify- not to bad Pain Behaviors Facial Grimacing,Wincing Pain Management Techniques Re-positioning,Timing of Activity with Medications Right Foot Scale Used unable to quantify- not to bad Pain Behaviors Facial Grimacing,Wincing Pain Management Techniques Re-positioning,Timing of Activity with Medications M4 PT-IP Mobility and Gait Start: 05/08/23 11:58 Freq: NEEDED Status: Discharge Protocol: Document 05/09/23 10:19 SP (Rec: 05/09/23 14:23 SP [id number]) PT-Bed Mobility Assessment Supine to Sit Supine to Sit Independent Scooting Scooting to Edge of Bed Independent PT-Transfer Assessment Sit to and From Stand Sit to and from Stand Standby Assistance,Use of Upper Extremities Equipment Transfer Assistive Device Gait Belt,4 Wheeled Walker Transfers Transfer Destination Chair Transfer Technique pt ambulated using 4WW Transfer Ability Level of Assist Standby Assistance,Use of Upper Extremities Comments Mobility Comments Pt completed bed mobility HOB flat I sup>sit, scoot to EOB, able to reposition each LE itself without support. STS from EOB, good 4WW brake mgt, gait w/4WW around room step to patterning progerssing to receiprocal but RLE doesn't pass equally LLE, down hallway down to stairs, completed 3 step stair mgt BUE on L HR SBA , returned to room approx 400 ft, went into used bathroom SBA/mod I, Cue x1 for brake mgt pre sit. self pericare sitting. Gait to sink w/ 4ww 12 ft, cued for positioning posterior with brake locked, I ususally do this so can sit if needed. Pt gait w/ FWW to chair 8 ft, SBA, good demonstration back up fully, lock 4WW before sit and reached back slow descend sit. Assisted chair leg rest elevation support. Pt had call light and all needs in reach before left. Gait Assessment Gait Gait Assistance Required: Standby Assistance Distance (Feet) 400 Able to Maintain Weight Bearing Status Yes During Gait Assistive Devices Assistive Device Gait Belt,4 Wheeled Walker Orthotic/Prosthetic Devices or Brace: No Gait Deviations General Gait Pattern Antalgic,Decreased Stride Length,Decreased Feet Clearance,Narrow Based Gait Factors Limiting Gait Function Factors Limiting Gait Function Limited Range of Motion,Pain Comments Gait Comments Pt's gait deviations are largely due to right foot and knee wounds and decreased ROM and pain but not as bad today, thereby affecting her stride length, foot clearance, and SOFÍA. Stable good stability this tx. Stair Climbing Assessment Evaluation Level of Assist On Stairs Standby Assistance Devices Stair Climbing Assistive Devices Left Railing Technique/Endurance Stair Climbing Direction Ascend and Descend Stair Climbing Technique Step to Step Number of Steps Climbed 3 Stair Climbing Set # Repetitions (reps) 1 Comments Stair Climbing Comments Pt requires use of bilateral hand rails to ascend/descend steps BUE on L HR. She descends by side/back stepping due to pain in right foot/ knee, stable and no LOB with self cues for patterning. PT-Balance Assessment Sitting Balance and Reactions Static Sitting Balance Ability Normal Dynamic Sitting Balance Ability Good Standing Balance and Reactions Static Standing Balance Ability Good Dynamic Standing Balance Ability Good Device Used 4WW M5 PT-IP Objective Assessments Start: 05/08/23 11:58 Freq: NEEDED Status: Discharge Protocol: Document 05/08/23 12:02 AB (Rec: 05/08/23 12:38 AB [id number]) Orientation Orientation/Cognition Level of Alertness Alert Orientation Name,Age,Birthday,Month,Date, Year,Day of Week,Place, Situation Language Function Ability No Deficits Noted Safety Awareness Understands Safety Issues Memory Description No Deficits Noted Gross Range of Motion Upper Extremity ROM Assessment Within Functional Limits Lower Extremity ROM Assessment Right Impaired Impairments D/t pain from knee wound Strength Upper Extremity Strength Assessment Within Functional Limits Lower Extremity Strength Assessment Within Functional Limits M6 PT-IP Treatment Start: 05/08/23 11:58 Freq: NEEDED Status: Discharge Protocol: Document 05/09/23 10:19 SP (Rec: 05/09/23 14:23 SP [id number]) Physical Therapy Treatment Exercises Exercises Ankle Pumps,Heel Slides Education Education Provided Safety M7 PT-IP Assessment and Plan Start: 05/08/23 11:58 Freq: NEEDED Status: Discharge Protocol: Document 05/09/23 10:19 SP (Rec: 05/09/23 14:23 SP [id number]) PT Summary Assessment and Plan Potential Rehabilitation Potential Good Status of Condition at Evaluation Stable Summary Impairments Pain,ROM,Strength,Balance,Bed Mobility,Transfers,Gait, Activity Tolerance Progress Towards Goals Progressing Toward Goals,Slow Progress due to Pain Assessment Summary Pt decreased equal RLE stride compared to L. She demonstrated Mod I bed mob, SBA for all standing mobility w/4WW. Occasional cue x2 for brake mgt pre sit in bathroom and positioned behind her at sink for support as needed. She takes time for distance gait w/4WW and completed 1 HR 3 stair mgt, SBA. She is ok to return home with family to assist her, recommending HHPT to progress balance and LRAD mobility. She states has a 3WW needs t use due to smaller space in daughter's home but usually uses 4WW at her appt in building. Goals Bed Mobility Goal Independent Transfer Goal Independent,Four Wheeled Walker Gait Goal Independent,Four Wheel Walker Gait Distance 50 Other Goals Pt to be able to ascend/ descend 2 steps with left hand rail independently to demonstrate safety for discharge. Days to Meet Goals 10 Frequency of Treatment Frequency Of Treatment Once a Day Treatment Plan Physical Therapy Treatment Plan Bed Mobility Training,Transfer Training,Gait Training, Therapeutic Exercise,Balance Retraining,Discharge Planning, Hot or Cold Pack,Neuromuscular Re-ed,Coordination Retraining ,Manual Therapy Other Recommendations and Next Treatment LE ther ex, 5xSTS, standing Focus balance activities, progress gait LRAD Recommendations To Nursing Amount of Assist Needed Standby Assistance Discharge Recommendations PT Discharge Recommendations Home with Assistance,Home Health Transportation Needs at Discharge Private Vehicle
[2023-05-09] MEDS: IBUPROFEN 400 MG TABLET PO (11:18)
== END 2023-05-09 12:09 | disposition home or self-care (01) ==
LOC: ED 22:52 → AC 23:16
PROVIDERS: Emergency Medicine; Admitting Provider Internal Medicine; Emergency Provider Emergency Medicine; Family Provider Internal Medicine; PCP Internal Medicine; Referring Provider Emergency Medicine; Visit Provider Internal Medicine
DX: S81.011A Laceration without foreign body, right knee, initial encounter (principal); N39.0 Urinary tract infection, site not specified; E86.0 Dehydration; W19.XXXA Unspecified fall, initial encounter; R53.1 Weakness; R42 Dizziness and giddiness; E87.6 Hypokalemia; K52.832 Lymphocytic colitis; G47.33 Obstructive sleep apnea (adult) (pediatric); M10.9 Gout, unspecified
CPT/HCPCS: 12005; 36415; 73080; 73562; 80048; 80053; 81003; 81015; 82550; 83735; 84484; 85007; 85025; 87077; 87086; 87186; 93005; 96361; 96365; 97116; 97162; 97166; 97530; 97535; 99285; G0378; A9270; J0696

== ENCOUNTER 2023-12-05 11:57 | Emergency (ER) | payer MEDICARE, SELFPAY ==
[2023-12-05] VITALS (14 sets, daily range): BP systolic 131–144; BP diastolic 63–84; PULSE 62–79; RESP 14–27; TEMP 36.8; O2SAT 95–99; BMI 23.4
--- NOTE | 2023-12-05 12:16 | DI.RAD.S_ITS ---
PROCEDURE: XR ACUTE ABDOMEN SERIES INDICATIONS: fatigue, weakness, poor appetite TECHNIQUE: One view chest and two views of the abdomen were acquired. COMPARISON: None. FINDINGS: Surgical changes and devices: Patient is status post bilateral total hip arthroplasty. Prior vertebral plasty in multiple midthoracic spine vertebral bodies and L3 vertebral body is also seen. Chest: Calcification projecting in left lower lung field which may represent calcified granuloma versus calcification within left breast. Heart size is normal. No pleural effusions. No pneumoperitoneum. Abdomen: Bowel gas pattern is nonobstructive. Mild fecal stasis in the colon is seen. No gross pneumoperitoneum. No suspicious calcifications. Visualized solid organ contours appear normal. Bones: No suspicious bony lesions. IMPRESSION: Mild constipation. No bowel obstruction or gross free air. Possible calcified granuloma versus breast calcification as above. No focal infiltrate, pleural effusion or pneumothorax. Dictated by: Bronson Leos M.D. on 12/05/2023 at 13:03 Approved by: Bronson Leos M.D. on 12/05/2023 at 13:04
--- NOTE | 2023-12-05 12:20 | ED.NAVMDI ---
HPI - Nausea/Vomiting/Diarrhea General Chief complaint: Nausea/Vomiting/Diarrhea Stated complaint: loss of apetite Time Seen by Provider: 12/05/23 12:02 Source: patient Mode of arrival: Ambulatory History of Present Illness HPI Narrative: 88-year-old female with history of lymphocytic colitis, generalized weakness, prior electrolyte abnormalities presents with her daughter at the request of the primary care provider for evaluation. She reports generalized weakness and decreased appetite over the past 5 weeks or so. At about that time she had been treated with doxycycline for cellulitis of her right lower extremity and since then has had troubles as stated. She has become progressively weak and fatigued. She has had a few episodes of nausea and vomiting and a few episodes of loose watery stools. She denies any recent travel or exposure to bad food. She denies any medication changes. She frequently gets a foul taste in her mouth and describes it as feculent or at times metallic. Her last colonoscopy was about 1 year ago and noted widespread inflammatory change. She denies chest pain or shortness of breath Related Data Home Medications Medication Instructions Recorded Confirmed allopurinol 300 mg tablet 300 mg PO DAILY gout pain 05/07/23 05/07/23 budesonide 3 mg 9 mg PO QAM 05/07/23 05/08/23 capsule,delayed,extended release colchicine 0.6 mg tablet 0.6 mg PO DAILY 05/08/23 05/08/23 famotidine 20 mg tablet 20 mg PO BID 05/08/23 05/08/23 gabapentin 300 mg capsule 600 mg PO BID 05/08/23 05/08/23 loperamide 2 mg capsule 2 mg PO Q4HR PRN Diarrhea 05/08/23 05/08/23 (Anti-Diarrheal (loperamide)) minoxidil 2.5 mg tablet 2.5 mg PO DAILY 05/08/23 05/08/23 prednisone 10 mg tablet 20 mg PO QAM 05/08/23 05/08/23 valacyclovir 1 gram tablet 1,000 mg PO DAILY 05/08/23 05/08/23 Previous Rx's Medication Instructions Recorded pantoprazole 40 mg tablet,delayed 40 mg PO DAILY #30 tabs 12/05/23 release (Protonix) potassium chloride 20 mEq 20 meq PO DAILY #7 tabs 12/05/23 tablet,extended release(part/cryst) Allergies Allergy/AdvReac Type Severity Reaction Status Date / Time No Known Drug Allergies Allergy Verified 12/05/23 12:05 Review of Systems Review of Systems Narrative: GENERAL: See HPI HEENT: Denies sinus pain, ear pain, sore throat, difficulty swallowing, dizziness. RESPIRATORY: Denies dyspnea, cough, wheezing, hemoptysis, sputum. CARDIOVASCULAR: Denies chest pain, palpitations, orthopnea, edema, GASTROINTESTINAL: See HPI : Denies dysuria, frequency, incontinence, hematuria, urinary retention. MUSCULOSKELETAL: denies weakness, joint pain, or bony pain SKIN: Denies rash, skin lesions, or other NEUROLOGIC: Denies weakness, headache, numbness, change in speech, confusion, seizures, incoordination. PSYCHIATRIC: No concerning psychosocial issues. 12 point review of systems is negative except for those stated above Patient History Medical History (Updated 12/05/23 @ 15:03 by Emmanuel Contreras DO) PRABHJOT (obstructive sleep apnea) Lymphocytic colitis Social History household members: family and children Smoking Status: Unknown if ever smoked Smoking Status: Unknown if ever smoked alcohol intake frequency: holidays/special occasions only Substance Use Type: does not use Exam Narrative Exam Narrative: GENERAL: [88] year old patient appears stated age. Frail and elderly, require some assistance getting out of wheelchair HEAD: Atraumatic. Normocephalic. EYES: Pupils equal round and reactive. Extraocular motions intact. No scleral icterus. No injection or drainage. ENT: Nose without bleeding, purulent drainage. Throat without erythema, tonsillar hypertrophy or exudate. Airway patent. Dry mucous membranes NECK: Trachea midline. Non tender CARDIOVASCULAR: Regular rate and rhythm without murmurs, gallops, or rubs. RESPIRATORY: Clear to auscultation. Breath sounds equal bilaterally. No wheezes, rales, or rhonchi. GASTROINTESTINAL: Abdomen soft, non-tender, nondistended. EXTREMITIES: No edema or joint tenderness. BACK: Nontender without deformity or crepitance. No flank tenderness. NEURO: AOx3. SKIN: Poor skin turgor. No rash or erythema of visible areas Initial Vital Signs Initial Vital Signs: Vital Signs Temperature 98.2 F 12/05/23 12:02 Pulse Rate 79 12/05/23 12:02 Respiratory Rate 16 12/05/23 12:02 Blood Pressure 133/84 12/05/23 12:02 Pulse Oximetry 99 12/05/23 12:02 Oxygen Delivery Method Room Air 12/05/23 12:02 Course Orders Ordered: ED Orders 12/05/23 12:16 XR acute abdomen series Stat Urinalysis and Microscopic Stat EKG-12 Lead Stat 12/05/23 12:17 Stool Culture Stat 12/05/23 12:36 Complete Blood Count AUTO DIFF Stat Comprehensive Metabolic Panel Stat Thyroid Stimulating Hormone Stat Troponin I Stat Discontinued Medications Sodium Chloride (Normal Saline 0.9%) 1,000 mls @ 1,000 mls/hr IV BOLUS ONE Stop: 12/05/23 13:15 Last Admin: 12/05/23 13:27 Dose: 1,000 mls/hr Documented By: CHIKI Ondansetron HCl (Ondansetron 4 Mg/2 Ml Inj) 4 mg IV NOW ONE Stop: 12/05/23 12:17 Reevaluation(s) Reevaluation #1: patient feeling much better after fluids, has produced urine, tolerating orals Vital Signs Vital signs: Vital Signs - 8 hr 12/05/23 12:02 Temperature 98.2 F Pulse Rate 79 Respiratory Rate 16 Blood Pressure 133/84 Pulse Oximetry 99 Oxygen Delivery Method Room Air MDM - Nausea/Vomiting/Diarrhea Lab Data 12/05/23 12:36 12/05/23 12:36 Labs: Lab Results 12/05/23 Range/Units 12:36 WBC 3.9 L (4.5-11.0) X10^3/uL RBC 4.32 (4.0-5.2) X10^6/uL Hgb 13.8 (12.0-16.0) g/dL Hct 40.8 (36-46) % MCV 94.5 (80-100) fL MCH 31.9 (26-34) PG MCHC 33.8 (30-36) % RDW 15.5 H (11.6-14.8) % Plt Count 163 (150-400) X10^3/uL Neut % (Auto) 70.4 (50-75) % Lymph % (Auto) 18.0 L (25-40) % [place] % (Auto) 10.8 (3-14) % Eos % (Auto) 0.2 L (2-4) % Baso % (Auto) 0.6 (0-2) % Neut # (Auto) 2800 (6298-1398) /uL Lymph # (Auto) 700 L (8175-2849) /uL [place] # (Auto) 400 (0-900) /uL Eos # (Auto) 0 (0-450) /uL Baso # (Auto) 0 (0-100) /uL Sodium 138 (137-145) mmol/L Potassium 2.9 L (3.4-5.1) mmol/L Chloride 101 (98-107) mmol/L Carbon Dioxide 29 (22-32) mmol/L BUN 16 (7-17) mg/dL Creatinine 1.00 (0.52-1.04) mg/dL Estimated GFR 55 L (>60) mL/min BUN/Creatinine Ratio 16.0 (6-22) Glucose 82 (80-110) mg/dL Calcium 8.1 L (8.4-10.2) mg/dL Total Bilirubin 1.1 (0.2-1.3) mg/dL AST 115 H (14-36) IU/L ALT 59 H (<35) IU/L Alkaline Phosphatase 102 (38-126) U/L Troponin I < 0.012 (0.01-0.034) ng/mL Total Protein 6.9 (6.3-8.2) g/dL Albumin 4.2 (3.5-5.0) g/dL Globulin 2.7 (1.7-4.1) g/dL Albumin/Globulin Ratio 1.6 (1.0-2.8) Point of Care Testing Glucose POC 72 MDM Narrative Medical decision making narrative: [88] year old patient presents with poor appetite and weakness Multiple etiologies for patient's symptoms considered including, but not limited to: [dehydration vs. electrolyte disturbance vs. cardiac ischemia vs. infectious process vs. other] Prior Charts reviewed in our EMR Primary Historian: patient Labs reviewed and interpreted by myself: no leukocytosis or left shift, no anemia, K 2.9, otherwise normal lytes, normal renal function, troponin normal. No UTI. Imaging reviewed: AAS with constipation, no pneumonia or SBO Patient's symptoms improved over duration of stay with above-stated therapies. Other than a slightly decreased potassium which has been repleted there are no significant abnormalities requiring intervention. She feels tremendous improvement after fluids, is tolerating orals and ambulating near her baseline. The temporal relationship between the development of her symptoms and completion of a course of antibiotics is hard to nor raising the suspicion of imbalance of her natural leslie. She is encouraged to continue taking probiotics, prescription sent to her pharmacy. She has outpatient follow-up already scheduled Findings and discharge diagnosis discussed with patient/family followed by verbalization of understanding Return precautions discussed with patient/family whom verbalize understanding of diagnosis and plan Discharge Plan Departure Patient Disposition: Home Clinical Impression: Nausea & vomiting, Acute dehydration, Acute hypokalemia Instructions: DI for Dehydration -- Adult, DI for Nausea -- Adult Activity Restrictions/Additional Instructions: *You have been diagnosed with [nausea and hypokalemia] *What to do: *Please continue to take your regular medications as directed. [x ] New medication prescriptions sent to your pharmacy: [[facility] ] [ ] New medication written as a paper prescription [ ] No new medications given *Please follow up with your primary care provider in 2-3 days, call for an appointment. Let them know you were seen in the Emergency Department and that we ask that you be seen in follow up. We will electronically transmit a record of today's note if your PCP is in our system *If you do not have a primary care provider please contact the [facility] Resource line at [phone]. They will ask some questions about your medical history and help get you set up with a doctor in the community. *Return to Emergency Department if you should have any new, worsening or concerning symptoms, such as [fever greater than 101 F, shaking chills, worsening pain, persistent vomiting or other bothersome symptoms] Prescriptions: New pantoprazole [Protonix] 40 mg tablet,delayed release (DR/EC) 40 mg PO DAILY Qty: 30 0RF potassium chloride 20 mEq tablet,ER particles/crystals 20 meq PO DAILY Qty: 7 0RF No Action allopurinol 300 mg tablet 300 mg PO DAILY budesonide 3 mg capsule,delayed,extend.release 9 mg PO QAM Rx Instructions: 3 caps per day prednisone 10 mg Tablet 20 mg PO QAM Patient Comments: take 20 mg till 8. Then taper to 15mg mg for 7 days. followed by 10mg for 7 days, then 5mg for 7 days loperamide [Anti-Diarrheal (loperamide)] 2 mg capsule 2 mg PO Q4HR PRN (Reason: Diarrhea) valacyclovir 1 gram tablet 1,000 mg PO DAILY minoxidil 2.5 mg tablet 2.5 mg PO DAILY famotidine 20 mg tablet 20 mg PO BID gabapentin 300 mg capsule 600 mg PO BID colchicine 0.6 mg tablet 0.6 mg PO DAILY Referrals: Tamia Vázquez MD [Primary Care Provider] - Stand Alone Forms: Patient Portal/API
[2023-12-05 12:47] LABS: Add Manual Diff / Slide Review NO; Basophils Absolute Auto 0 /uL (0-100); Basophils Percent Auto 0.6 % (0-2); Eosinophils Absolute Auto 0 /uL (0-450); Eosinophils Percent Auto 0.2 % (2-4); Hematocrit 40.8 % (36-46); Hemoglobin 13.8 g/dL (12.0-16.0); Lymphocytes Absolute Auto 700 /uL (1100-4500); Mean Corpuscular HGB Conc 33.8 % (30-36); Mean Corpuscular Hemoglobin 31.9 PG (26-34); Mean Corpuscular Volume 94.5 fL (80-100); Monocytes Absolute Auto 400 /uL (0-900); Monocytes Percent Auto 10.8 % (3-14); Neutrophils Absolute Auto 2800 /uL (1500-7000); Neutrophils Percent Auto 70.4 % (50-75); Platelet Count 163 X10^3/uL (150-400); Red Blood Cell Count 4.32 X10^6/uL (4.0-5.2); Red Cell Distribution Width 15.5 % (11.6-14.8); White Blood Cell Count 3.9 X10^3/uL (4.5-11.0)
[2023-12-05 13:05] LABS: Alanine Aminotransferase 59 IU/L (<35); Albumin 4.2 g/dL (3.5-5.0); Albumin Globulin Ratio 1.6 (1.0-2.8); Alkaline Phosphatase 102 U/L (38-126); Aspartate Aminotransferase 115 IU/L (14-36); Bilirubin Total 1.1 mg/dL (0.2-1.3); Blood Urea Nitrogen 16 mg/dL (7-17); Calcium 8.1 mg/dL (8.4-10.2); Carbon Dioxide 29 mmol/L (22-32); Chloride 101 mmol/L (98-107); Estimated Glomerular Filt Rate 55 mL/min (>60); Globulin 2.7 g/dL (1.7-4.1); Glucose 82 mg/dL (80-110); HEMOLYSIS < 15 (0-50); Potassium 2.9 mmol/L (3.4-5.1); Sodium 138 mmol/L (137-145); Total Protein 6.9 g/dL (6.3-8.2)
[2023-12-05 13:15] LABS: Troponin I < 0.012 ng/mL (0.01-0.034)
[2023-12-05] MEDS: SODIUM CHLORIDE 0.9% 1,000 ML 1000 ML IV (13:27)
[2023-12-05] MEDS: POTASSIUM CHLORIDE 20 MEQ/15 ML UDC 40 MEQ PO (13:50)
[2023-12-05] MEDS: POTASSIUM CHLORIDE 20 MEQ TAB 40 MEQ PO (13:50)
[2023-12-05 14:49] LABS: Appearance Urine UA CLEAR; Bilirubin Urine UA NEGATIVE (NEGATIVE); Color Urine UA YELLOW; Glucose Urine UA NEGATIVE (Negative); Ketones Urine UA 1+ (NEGATIVE); Leukocyte Esterase Urine UA 2+ (NEGATIVE); Nitrite Urine UA NEGATIVE (Negative); Occult Blood Urine UA NEGATIVE (Negative); Protein Urine UA TRACE (Negative); Specific Gravity Urine UA <=1.005 (1.000-1.035); Urobilinogen Urine UA 0.2 E.U./dL (0.2)
[2023-12-05 14:50] LABS: Urine Volume 10mL (spun)
[2023-12-05 14:52] LABS: Bacteria Urine None Seen; Culture Indicated Urine Specimen Cultured; RBC Urine None Seen (0-5/HPF); Squamous Epithelial Cell Urine 1-5 /HPF (0-5/HPF); WBC Urine 1-5/HPF (0-5/HPF)
== END 2023-12-05 16:03 | disposition home or self-care (01) ==
PROVIDERS: Emergency Provider Emergency Medicine; Family Provider Internal Medicine; PCP Internal Medicine
DX: E87.6 Hypokalemia (principal); E86.0 Dehydration; R11.2 Nausea with vomiting, unspecified
CPT/HCPCS: 36415; 74022; 80053; 81001; 81003; 82962; 84443; 84484; 85025; 87086; 93005; 96360; 99284